=== PATIENT | male | born 1975 | race African-American/Black ===

== ENCOUNTER 2017-12-18 10:25 | Inpatient (IN) | payer OTHER ==
[2017-12-18 10:50] VITALS: BMI 24.7
--- NOTE | 2017-12-18 13:39 | HP ---
CIWA Score - CIWA Score Nausea/Vomitin-Cont. Nausea/Vomiting Muscle Tremors: 3 Anxiety: 3 Agitation: 3 Paroxysmal Sweats: 3 Orientation: 0-Oriented Tacttile Disturbances: 1-Very Mild Itch/Numbness Auditory Disturbances: 0-None Visual Disturbances: 0-None Headache: 0-None Present CIWA-Ar Total Score: 20 Admission ROS BHS - HPI Chief Complaint: "I want to stop drinking for my daughters" Allergies/Adverse Reactions: Allergies Allergy/AdvReac Type Severity Reaction Status Date / Time doxycycline Allergy Verified 12/18/17 11:33 Penicillins Allergy Verified 12/18/17 11:33 History of Present Illness: 42 y/o male who states he has been drinking since age 8 presents requesting alcohol detox. Pt states he has never had detox, this is his first visit here. Denies any remarkable sober period. Has a hx of asthma. Pt admits to a previous suicide attempt about 6 yrs ago by swallowing a bunch of seroquel. Denies current SI/HI Exam Limitations: No Limitations - Ebola screening Have you traveled outside of the country in the last 21 days: No (N) Have you had contact with anyone from an Ebola affected area: No Have you been sick,other than usual withdrawal symptoms: No Do you have a fever: No - Review of Systems Constitutional: Loss of Appetite, Night Sweats, Changes in sleep, Unintentional Wgt. Loss EENT: reports: No Symptoms Reported Respiratory: reports: Shortness of Breath (sometimes) Cardiac: reports: No Symptoms Reported GI: reports: Diarrhea, Poor Appetite, Vomiting : reports: No Symptoms Reported Musculoskeletal: reports: Back Pain Integumentary: reports: No Symptoms Reported Neuro: reports: No Symptoms reported Endocrine: reports: Intolerance to Heat Hematology: reports: No Symptoms Reported Psychiatric: reports: No Sypmtoms Reported, Orientated x3 Patient History - Patient Medical History Hx Anemia: No Hx Asthma: Yes (On Albueterol and QVAR) Hx Chronic Obstructive Pulmonary Disease (COPD): No Hx Cancer: No Hx Cardiac Disorders: No Hx Congestive Heart Failure: No Hx Hypertension: No Hx Hypercholesterolemia: No Hx Pacemaker: No HX Cerebrovascular Accident: No Hx Seizures: No Hx Diabetes: No Hx Gastrointestinal Disorders: No Hx Liver Disease: No Hx Genitourinary Disorders: No Hx Sexually Transmitted Disorders: Yes Hx Renal Disease (ESRD): No Hx Thyroid Disease: No Hx Human Immunodeficiency Virus (HIV): No (Last tested last year.) Hx Hepatitis C: No Hx Depression: Yes Hx Suicide Attempt: No (Denies current SI) Hx Bipolar Disorder: No Hx Schizophrenia: No - Patient Surgical History Past Surgical History: Yes Hx Neurologic Surgery: No Hx Cataract Extraction: No Hx Cardiac Surgery: No Hx Lung Surgery: No Hx Breast Surgery: No Hx Breast Biopsy: No Hx Abdominal Surgery: No Hx Appendectomy: No Hx Cholecystectomy: No Hx Genitourinary Surgery: No Hx Section: No Hx Orthopedic Surgery: Yes (right ankle surgery 2016) Other Surgical History: right groin hernia sx 2002 Anesthesia Reaction: No - PPD History Previous Implant?: No Documented Results: Negative w/o proof Implanted On Prior R Admission?: No PPD to be Administered?: Yes - Reproductive History Patient is a Female of Child Bearing Age (11 -55 yrs old): No - Smoking Cessation Smoking history: Current every day smoker Have you smoked in the past 12 months: Yes Aproximately how many cigarettes per day: 15 Hx Chewing Tobacco Use: No Initiated information on smoking cessation: Yes 'Breaking Loose' booklet given: 12/18/17 - Substance & Tx. History Hx Alcohol Use: Yes Hx Substance Use: Yes Substance Use Type: Cocaine Hx Substance Use Treatment: No - Substances Abused Alcohol Route: Oral Frequency: Daily Amount used: 20 (20 ounces) of beer Age of first use: 8 Date of Last Use: 12/18/17 Family Disease History - Family Disease History Family Disease History: Other: Father (Alcoholic), Mother (Asthma, thyroid , HTN ), Daughter (Asthma) Admission Physical Exam S - Vital Signs Vital Signs: Vital Signs - 24 hr 12/18/17 10:41 Temperature 98.5 F Pulse Rate 106 H Respiratory 20 Rate Blood Pressure 128/73 - Physical General Appearance: Yes: Mild Distress HEENTM: Yes: Within Normal Limits Respiratory: Yes: Normal Breath Sounds, No Respiratory Distress Neck: Yes: No masses,lesions,Nodules, Trachea in good position Breast: Yes: Breast Exam Deferred Cardiology: Yes: Tachycardia (No chest pain, no SOB) Abdominal: Yes: Tenderness (to RUQ) Genitourinary: Yes: Within Normal Limits Back: Yes: Normal Inspection Musculoskeletal: Yes: full range of Motion, Gait Steady Extremities: Yes: Normal Capillary Refill Neurological: Yes: Fully Oriented, Alert, Motor Strength 5/5 Integumentary: Yes: Within Normal Limits Lymphatic: Yes: Within Normal Limits - Diagnostic (1) Alcohol dependence with uncomplicated intoxication Current Visit: Yes Status: Acute (2) Nicotine dependence Current Visit: Yes Status: Acute (3) Asthma Current Visit: Yes Status: Acute Cleared for Admission [facility] - Detox or Rehab [facility] Level of Care: Medically Managed Detox Regimen/Protocol: Librium S Breath Alcohol Content Breath Alcohol Content: 0.273 Urine Drug Screen - Results Drug Screen Negative: Yes
[2017-12-18] MEDS ORDERED: chlordiazePOXIDE HCL 25 MG CAPSULE PO PRN (14:19)
[2017-12-18] MEDS ORDERED: MAG HYDROX/AL HYDROX/SIMETH 30 ML UNIT-DOSE CUP PO PRN (14:19)
[2017-12-18] MEDS ORDERED: MAGNESIUM HYDROX 2400MG/30ML ORAL SUSPENSION 30 ML CUP PO PRN (14:19)
[2017-12-18] MEDS ORDERED: P-EPHED 60MG/TRIPROLIDI 2.5MG TABLET PO PRN (14:19)
[2017-12-18] MEDS ORDERED: MENTHOL/PHENOL 1 EACH UD MM PRN (14:19)
[2017-12-18] MEDS ORDERED: guaiFENesin/D-METHORPHAN HB 10 ML UNIT-DOSE CUPS PO PRN (14:19)
[2017-12-18] MEDS ORDERED: NICOTINE POLACRILEX 2 MG GUM BUC PRN (14:19)
[2017-12-18] MEDS ORDERED: IBUPROFEN 400 MG TABLET (FP) PO PRN (14:19)
[2017-12-18] MEDS ORDERED: LOPERAMIDE HCL 2 MG CAPSULE PO PRN (14:19)
[2017-12-18] MEDS ORDERED: hydrOXYzine PAMOATE 50 MG CAPSULE (FP) PO PRN (14:19)
[2017-12-18] MEDS ORDERED: ACETAMINOPHEN 325 MG TABLET (FP) PO PRN (14:19)
[2017-12-18] MEDS ORDERED: MAGNESIUM CITRATE 300 ML BOTTLE PO PRN (14:19)
[2017-12-18] MEDS ORDERED: ALBUTEROL SO4 8 GM HFA INHALER IH PRN (14:22)
[2017-12-18] MEDS: NICOTINE 21 MG/24 HOURS TOPICAL PATCH TD SCH (15:23)
[2017-12-18] MEDS: chlordiazePOXIDE HCL 25 MG CAPSULE PO SCH ×2 (17:56→22:13)
[2017-12-18 21:28] LABS: URINE APPEARANCE CLEAR; URINE BILIRUBIN NEGATIVE (<2.0 mg/dL); URINE COLOR LTYELLOW; URINE GLUCOSE (UA) NEGATIVE (NEGATIVE); URINE KETONE NEGATIVE (NEGATIVE); URINE LEUK ESTERASE NEGATIVE (NEGATIVE); URINE NITRITE NEGATIVE (NEGATIVE); URINE PROTEIN 1+ (NEGATIVE); URINE UROBILINOGEN NEGATIVE mg/dL (0.2-1.0)
[2017-12-18 21:30] LABS: EPI CELLS RARE /HPF (FEW); URINE MUCUS RARE
[2017-12-18] MEDS ORDERED: MELATONIN 5 MG TABLETS PO PRN (22:00)
[2017-12-18] MEDS: THIAMINE HCL 100 MG TABLET (FP) PO SCH (22:13)
[2017-12-19] MEDS: chlordiazePOXIDE HCL 25 MG CAPSULE PO SCH ×4 (05:33→22:09)
[2017-12-19] MEDS ORDERED: ONDANSETRON *ODT* 4 MG TABLET SL PRN (05:37)
[2017-12-19] MEDS ORDERED: PRENATAL VITAMINS W/ FOLIC ACID TABLET (FP) PO SCH (10:00)
[2017-12-19 10:14] LABS: HEMATOCRIT 40.4 % (35.4-49); MCH 29.6 pg (25.7-33.7); MCHC 32.3 g/dl (32.0-35.9); MEAN CELL VOLUME 91.7 fl (80-96); MEAN PLT VOLUME 8.7 fl (7.5-11.1); PLATELET COUNT 131 K/MM3 (134-434); WHITE BLOOD COUNT 4.2 K/mm3 (4.0-10.0)
[2017-12-19] MEDS: NICOTINE 21 MG/24 HOURS TOPICAL PATCH TD SCH (10:20)
--- NOTE | 2017-12-19 11:02 | PN ---
S CIWA - CIWA Score Nausea/Vomitin-No Nausea/No Vomiting Muscle Tremors: 4-Moderate,w/Arms Extend Anxiety: 4-Mod. Anxious/Guarded Agitation: 4-Moderately Restless Paroxysmal Sweats: 1-Minimal Palms Moist Orientation: 0-Oriented Tacttile Disturbances: 0-None Auditory Disturbances: 0-None Visual Disturbances: 0-None Headache: 0-None Present CIWA-Ar Total Score: 13 BHS Progress Note (SOAP) Subjective: ANXIETY, SWEATS,BADY ACHES, NAUSEA, INTERMITTENT SLEEP. Objective: 12/19/17 11:02 Vital Signs 12/19/17 12/19/17 12/19/17 03:30 04:00 04:30 Temperature Pulse Rate 72 72 72 Respiratory 18 18 18 Rate Blood Pressure 12/19/17 12/19/17 12/19/17 05:00 05:30 05:57 Temperature 98.5 F Pulse Rate 74 77 75 Respiratory 18 18 18 Rate Blood Pressure 107/67 12/19/17 12/19/17 12/19/17 06:00 06:30 07:00 Temperature Pulse Rate 75 77 73 Respiratory 18 18 18 Rate Blood Pressure 12/19/17 12/19/17 12/19/17 07:30 08:00 08:30 Temperature Pulse Rate 68 72 70 Respiratory 18 18 17 Rate Blood Pressure 12/19/17 12/19/17 12/19/17 09:00 09:12 09:30 Temperature 98.8 F Pulse Rate 60 60 60 Respiratory 18 16 18 Rate Blood Pressure 111/69 12/19/17 12/19/17 10:00 10:30 Temperature Pulse Rate 62 64 Respiratory 18 18 Rate Blood Pressure Laboratory Tests 12/18/17 12/19/17 15:41 07:00 WBC 4.2 RBC 4.40 Hgb 13.0 Hct 40.4 MCV 91.7 MCH 29.6 MCHC 32.3 RDW 15.0 Plt Count 131 L MPV 8.7 Urine Color Ltyellow Urine Appearance Clear Urine pH 5.0 Ur Specific [place] 1.006 Urine Protein 1+ H Urine Glucose (UA) Negative Urine Ketones Negative Urine Blood 1+ H Urine Nitrite Negative Urine Bilirubin Negative Urine Urobilinogen Negative Ur Leukocyte Esterase Negative Urine WBC (Auto) 3 Urine RBC (Auto) 3 Ur Epithelial Cells Rare Urine Mucus Rare Assessment: 12/19/17 11:02 WITHDRAWAL SX Plan: CONTINUE DETOX [facility] PRN MOTRIN DIRECTED.
[2017-12-19 11:06] LABS: ALBUMIN 3.7 g/dl (3.4-5.0); ANION GAP 10 MMOL/L (8-16); BLOOD UREA NITROGEN 8 mg/dL (7-18); CALCIUM 8.7 mg/dL (8.5-10.1); CHLORIDE 98 mmol/L (98-107); CO2 31 mmol/L (21-32); GLUCOSE,RANDOM 94 mg/dL (74-106); POTASSIUM 3.8 mmol/L (3.5-5.1); SODIUM 139 mmol/L (136-145)
[2017-12-19 11:10] LABS: ALK PHOS 112 U/L (45-117); BILIRUBIN,TOTAL 0.8 mg/dL (0.2-1.0); CREATININE 0.7 mg/dL (0.7-1.3); SGOT/AST 379 U/L (15-37); SGPT/ALT 186 U/L (12-78); TOT PROT 7.1 g/dl (6.4-8.2)
--- NOTE | 2017-12-19 16:33 | EKG ---
Test Reason : Blood Pressure : / mmHG Vent. Rate : 097 BPM Atrial Rate : 097 BPM P-R Int : 122 ms QRS Dur : 108 ms QT Int : 362 ms P-R-T Axes : 076 044 053 degrees QTc Int : 459 ms NORMAL SINUS RHYTHM INCOMPLETE RIGHT BUNDLE BRANCH BLOCK BORDERLINE ECG NO PREVIOUS ECGS AVAILABLE Confirmed by Josue Loya ([id number]) on 12/19/2017 4:32:47 PM Referred By: Confirmed By:Josue Loya
--- NOTE | 2017-12-19 18:09 | CONSULT ---
[facility] Psychiatric Consult - Data Date of interview: 12/19/17 Admission source: [facility] Identifying data: First admission to [facility] for this 42 y/o AA male self- referred for detoxification treatment (alcohol dependence). Substance Abuse History: Discussed wityh the patient.Mr Leary admits to a long standing history of alcohol dependence and occasional use of cocaine.See [facility] report for details : Smoking history: Current every day smoker. Have you smoked in the past 12 months: Yes. Aproximately how many cigarettes per day: 15. Hx Chewing Tobacco Use: No. Initiated information on smoking cessation: Yes. 'Breaking Loose' booklet given: 12/18/17. - Substance & Tx. History. Hx Alcohol Use: Yes. Hx Substance Use: Yes. Substance Use Type: Cocaine. Hx Substance Use Treatment: No. - Substances Abused. Alcohol. Route: Oral. Frequency: Daily. Amount used: 20 (20 ounces) of beer. Age of first use: 8. Date of Last Use: 12/18/17 Medical History: Patient endorses good general health.Noted history of orthosurgery (fracture of right ankle) and right inguinal herniorraphy. Psychiatric History: Patient denies history of psychiatric hospitalizations.He indicates that he used to see a psychiatrist years ago.Reasons not disclosed.Not on psychotropic medications.Mr Leary admits to one suicide attempt , years ago, via deliberate overdose with quetiapine. Physical/Sexual Abuse/Trauma History: No reported history of abuse. Additional Comment: Drug Screen is negative. Mental Status Exam - Mental Status Exam Alert and Oriented to: Time, Place, Person Cognitive Function: Good Patient Appearance: Well Groomed Mood: Withdrawn, Hopeful Affect: Appropriate, Normal Range Patient Behavior: Fatigued, Appropriate, Cooperative Speech Pattern: Clear, Appropriate Voice Loudness: Normal Thought Process: Intact, Goal Oriented Thought Disorder: Not Present Hallucinations: Denies Suicidal Ideation: Denies Homicidal Ideation: Denies Insight/Judgement: Poor Sleep: Fair Appetite: Good Muscle strength/Tone: Normal Gait/Station: Normal Psychiatric Findings - Problem List ([place] 1, 2,3) (1) Alcohol dependence with uncomplicated intoxication Current Visit: Yes Status: Acute (2) Nicotine dependence Current Visit: Yes Status: Acute Qualifiers: Nicotine product type: cigarettes Substance use status: in withdrawal Qualified Code(s): F17.213 - Nicotine dependence, cigarettes, with withdrawal - Initial Treatment Plan Initial Treatment Plan: Psychoeducation.Slep hygiene.Detoxification in progress.Observation.
[2017-12-19] MEDS: THIAMINE HCL 100 MG TABLET (FP) PO SCH (22:09)
[2017-12-20] MEDS: chlordiazePOXIDE HCL 25 MG CAPSULE PO SCH (05:31)
[2017-12-20 09:10] VITALS: BP 126/83; PULSE 85; TEMP 97.2
--- NOTE | 2017-12-20 14:08 | DS ---
[facility] Detox Discharge Summary Admission Date: 12/18/17 Discharge Date: 12/20/17 - History Present History: Alcohol Dependence Additional Comments: PT DECLINED TO CONTINUE WITH DETOX STATING "I HAVE FAMILY AND WORK TO GO BACK TO. I HAVE TO GO". Pertinent Past History: PLEASE SEE DX BELOW - Physical Exam Results Vital Signs: Vital Signs Temperature 97.2 F L 12/20/17 09:09 Pulse Rate 85 12/20/17 09:09 Respiratory Rate 20 12/20/17 09:09 Blood Pressure 126/83 12/20/17 09:09 O2 Sat by Pulse Oximetry (%) Pertinent Admission Physical Exam Findings: WITHDRAWAL SX Laboratory Tests 12/18/17 12/19/17 12/19/17 15:41 07:00 07:00 WBC 4.2 RBC 4.40 Hgb 13.0 Hct 40.4 MCV 91.7 MCH 29.6 MCHC 32.3 RDW 15.0 Plt Count 131 L MPV 8.7 Sodium Potassium Chloride Carbon Dioxide Anion Gap BUN Creatinine Creat Clearance w eGFR Random Glucose Calcium Total Bilirubin AST ALT Alkaline Phosphatase Total Protein Albumin Urine Color Ltyellow Urine Appearance Clear Urine pH 5.0 Ur Specific [place] 1.006 Urine Protein 1+ H Urine Glucose (UA) Negative Urine Ketones Negative Urine Blood 1+ H Urine Nitrite Negative Urine Bilirubin Negative Urine Urobilinogen Negative Ur Leukocyte Esterase Negative Urine WBC (Auto) 3 Urine RBC (Auto) 3 Ur Epithelial Cells Rare Urine Mucus Rare RPR Titer HIV 1&2 Antibody Screen Negative HIV P24 Antigen Negative 12/19/17 12/19/17 07:00 07:00 WBC RBC Hgb Hct MCV MCH MCHC RDW Plt Count MPV Sodium 139 Potassium 3.8 Chloride 98 Carbon Dioxide 31 Anion Gap 10 BUN 8 Creatinine 0.7 Creat Clearance w eGFR > 60 Random Glucose 94 Calcium 8.7 Total Bilirubin 0.8 AST 379 H ALT 186 H Alkaline Phosphatase 112 Total Protein 7.1 Albumin 3.7 Urine Color Urine Appearance Urine pH Ur Specific [place] Urine Protein Urine Glucose (UA) Urine Ketones Urine Blood Urine Nitrite Urine Bilirubin Urine Urobilinogen Ur Leukocyte Esterase Urine WBC (Auto) Urine RBC (Auto) Ur Epithelial Cells Urine Mucus RPR Titer Nonreactive HIV 1&2 Antibody Screen HIV P24 Antigen - Treatment Hospital Course: Discharged Condition Good - Medication Discharge Medications: Ambulatory Orders Albuterol Sulfate Inhaler - [Ventolin Hfa Inhaler -] 1 - 2 inh PO Q4H 12/18/17 - Diagnosis (1) Alcohol dependence with uncomplicated intoxication Status: Acute (2) Asthma Status: Chronic Qualifiers: Asthma severity: unspecified severity Asthma persistence: unspecified Asthma complication type: unspecified Qualified Code(s): J45.909 - Unspecified asthma, uncomplicated (3) Nicotine dependence Status: Acute Qualifiers: Nicotine product type: cigarettes Substance use status: in withdrawal Qualified Code(s): F17.213 - Nicotine dependence, cigarettes, with withdrawal - AMA Did Patient Leave Against Medical Advice: Yes (AMA)
[2017-12-20] MEDS ORDERED: chlordiazePOXIDE 5 MG CAPSULE PO SCH (17:00)
[2017-12-21] MEDS ORDERED: chlordiazePOXIDE HCL 10 MG CAPSULE PO SCH (17:00)
== END 2017-12-20 08:50 | disposition left against medical advice (07) | DRG 770 ==
LOC: YASAS 10:25 → Y3N 14:16
PROC: HZ2ZZZZ Detoxification Services for Substance Abuse Treatment (ICD-10-PCS; principal; 2017-12-18)
DX: F10.230 Alcohol dependence with withdrawal, uncomplicated (principal); F17.213 Nicotine dependence, cigarettes, with withdrawal; J45.909 Unspecified asthma, uncomplicated; Z88.0 Allergy status to penicillin; Z88.1 Allergy status to other antibiotic agents; Z91.5 Personal history of self-harm; Z59.0 Homelessness; Z87.81 Personal history of (healed) traumatic fracture
CPT/HCPCS: 36415; 80053; 81003; 81015; 85027; 86593; 87389; 93005; 93010; Q0162

== ENCOUNTER 2018-03-28 14:55 | Inpatient (IN) | payer OTHER ==
[2018-03-28 15:24] VITALS: BMI 24.5
--- NOTE | 2018-03-28 16:23 | HP ---
CIWA Score Nausea/Vomitin Muscle Tremors: None Anxiety: 3 Agitation: 3 Paroxysmal Sweats: 2 Orientation: 0-Oriented Tacttile Disturbances: 0-None Auditory Disturbances: 2-Mild Harshness/Frighten Visual Disturbances: 0-None Headache: 2-Mild CIWA-Ar Total Score: 15 - Admission Criteria [facility] Guidelines: Admission for Medically Managed Detox: Requires at least one of the followin. CIWA greater than 12 2. Seizures within the past 24 hours 3. Delirium tremens within the past 24 hours 4. Hallucinations within the past 24 hours 5. Acute intervention needed for co occurring medical disorder 6. Acute intervention needed for co occurring psychiatric disorder 7. Severe withdrawal that cannot be handled at a lower level of care (continued vomiting, continued diarrhea, abnormal vital signs) requiring intravenous medication and/or fluids 8. Admission ROS [facility] Chief Complaint: PATIENT PRESENTS WITH ETOH WITHDRAWAL SX AND COCAINE DEPENDENCE. Allergies/Adverse Reactions: Allergies Allergy/AdvReac Type Severity Reaction Status Date / Time doxycycline Allergy Verified 12/18/17 11:33 Penicillins Allergy Verified 12/18/17 11:33 History of Present Illness: PATIENT BEGAN DRINKING ETOH AT AGE 16. DRINKS 250 OUNCES OF BEER DAILY. LAST DRINK THIS MORNING. PATIENT ALSO SMOKES CRACK/COCAINE 3 TIMES A MONTH, UP 200 DOLLARS WHEN HE DOES SMOKE. LAST TIME HE USED WAS YESTERDAY. PATIENT DENIES H/O SEIZURES. +BLACKOUTS AND FALLS. PATIENT HAS HAD MULTIPLE ATTEMPTS AT DETOX THIS YEAR. LAST ADMISSION HERE AT [facility] IN 12/2017. PATIENT DRINKS FIRST THING IN THE MORNING. PATIENT PMH INCLUDES DEPRESSION, ASTHMA. DENIES SI/HI. + SUICIDE ATTEMPT LAST MONTH AND PT. ADMITTED TO [facility] .PATIENT CURRENTLY ON PROZAC 30MG DAILY AND TRAZODONE 150MG HS, PRESCRIPTION VERIFIED WITH [facility]. PATIENT REPORTS TAKING MEDICATION DAILY AND LAST DOSE THIS MORNING. Exam Limitations: No Limitations - Ebola screening Have you traveled outside of the country in the last 21 days: No Have you had contact with anyone from an Ebola affected area: No Have you been sick,other than usual withdrawal symptoms: No Do you have a fever: No - Review of Systems Constitutional: Chills, Night Sweats, Changes in sleep EENT: reports: No Symptoms Reported Respiratory: reports: No Symptoms reported Cardiac: reports: No Symptoms Reported GI: reports: Diarrhea, Nausea, Poor Fluid Intake, Abdominal cramping : reports: No Symptoms Reported Musculoskeletal: reports: No Symptoms Reported Integumentary: reports: Flushing, Sweating Neuro: reports: Headache, Numbness, Tremors Endocrine: reports: No Symptoms Reported Hematology: reports: No Symptoms Reported Psychiatric: reports: Orientated x3, Anxious, Depressed Patient History - Patient Medical History Hx Anemia: No Hx Asthma: Yes (On Albueterol and QVAR) Hx Chronic Obstructive Pulmonary Disease (COPD): No Hx Cancer: No Hx Cardiac Disorders: No Hx Congestive Heart Failure: No Hx Hypertension: No Hx Hypercholesterolemia: No Hx Pacemaker: No HX Cerebrovascular Accident: No Hx Seizures: No Hx Diabetes: No Hx Gastrointestinal Disorders: No Hx Liver Disease: No Hx Genitourinary Disorders: No Hx Sexually Transmitted Disorders: Yes Hx Renal Disease (ESRD): No Hx Thyroid Disease: No Hx Human Immunodeficiency Virus (HIV): No (Last tested last year.) Hx Hepatitis C: No Hx Depression: Yes Hx Suicide Attempt: Yes (LAST ATTEMPT, 01/2018, JUMPING IN FRONT OF TRAIN) Hx Bipolar Disorder: No Hx Schizophrenia: No - Patient Surgical History Past Surgical History: Yes Hx Neurologic Surgery: No Hx Cataract Extraction: No Hx Cardiac Surgery: No Hx Lung Surgery: No Hx Breast Surgery: No Hx Breast Biopsy: No Hx Abdominal Surgery: No Hx Appendectomy: No Hx Cholecystectomy: No Hx Genitourinary Surgery: No Hx Orthopedic Surgery: Yes (right ankle surgery 2016) Other Surgical History: right groin hernia sx 2002 Anesthesia Reaction: No - PPD History Previous Implant?: Yes Documented Results: Negative w/proof Date: 12/20/17 PPD to be Administered?: No - Smoking Cessation Smoking history: Current every day smoker Have you smoked in the past 12 months: Yes Aproximately how many cigarettes per day: 15 Hx Chewing Tobacco Use: No Initiated information on smoking cessation: Yes 'Breaking Loose' booklet given: 03/28/18 - Substance & Tx. History Hx Alcohol Use: Yes Hx Substance Use: Yes Substance Use Type: Alcohol, Cocaine - Substances Abused Alcohol Route: Oral Frequency: Daily Amount used: 250 OUNCES BEER Age of first use: 16 Date of Last Use: 03/28/18 Cocaine Route: Inhalation Frequency: 1-3 times last 30 days Amount used: 200 Age of first use: 38 Date of Last Use: 03/28/18 Family Disease History - Family Disease History Family Disease History: Other: Father (Alcoholic), Mother (Asthma, thyroid , HTN ), Daughter (Asthma) Admission Physical Exam [facility] - Vital Signs Vital Signs: Vital Signs - 24 hr 03/28/18 15:16 Temperature 98.9 F Pulse Rate 104 H Respiratory 20 Rate Blood Pressure 110/59 L - Physical General Appearance: Yes: Appropriately Dressed, Disheveled, Alcohol on Breath, Tremorous HEENTM: Yes: EOMI, Hearing grossly Normal, Normal ENT Inspection, Normocephalic , Normal Voice, NASIMA, Pharynx Normal Respiratory: Yes: Chest Non-Tender, Lungs Clear, Normal Breath Sounds, No Respiratory Distress, No Accessory Muscle Use Neck: Yes: No masses,lesions,Nodules, Supple, Trachea in good position Breast: Yes: Breast Exam Deferred Cardiology: Yes: Regular Rhythm, Regular Rate, S1, S2 Abdominal: Yes: Normal Bowel Sounds, Non Tender, Soft Genitourinary: Yes: Frequency Back: Yes: Within Normal Limits Musculoskeletal: Yes: full range of Motion, Gait Steady Extremities: Yes: Normal Inspection, Normal Range of Motion, Non-Tender Neurological: Yes: tower watchman II-XII NML intact, Fully Oriented, Alert, Motor Strength 5/5, Normal Response, Depressed Affect Integumentary: Yes: Normal Color, Warm, Moist Lymphatic: Yes: Within Normal Limits - Diagnostic (1) Depression Current Visit: Yes Status: Chronic Qualifiers: Depression Type: unspecified Qualified Code(s): F32.9 - Major depressive disorder, single episode, unspecified (2) Alcohol dependence with uncomplicated intoxication Current Visit: Yes Status: Acute (3) Nicotine dependence Current Visit: Yes Status: Chronic Qualifiers: Nicotine product type: cigarettes Substance use status: in withdrawal Qualified Code(s): F17.213 - Nicotine dependence, cigarettes, with withdrawal (4) Asthma Current Visit: Yes Status: Chronic Qualifiers: Asthma severity: unspecified severity Asthma persistence: unspecified Asthma complication type: unspecified Qualified Code(s): J45.909 - Unspecified asthma, uncomplicated Cleared for Admission S - Detox or Rehab [facility] Level of Care: Medically Managed Detox Regimen/Protocol: Librium S Breath Alcohol Content Breath Alcohol Content: 0 Urine Drug Screen - Results Drug Screen Negative: No Urine Drug Screen Results: TOÑO-Cocaine
[2018-03-28] MEDS ORDERED: guaiFENesin/D-METHORPHAN HB 10 ML UNIT-DOSE CUPS PO PRN (16:33)
[2018-03-28] MEDS ORDERED: NICOTINE POLACRILEX 2 MG GUM BC PRN (16:33)
[2018-03-28] MEDS ORDERED: MAGNESIUM HYDROX 2400MG/30ML ORAL SUSPENSION 30 ML CUP PO PRN (16:33)
[2018-03-28] MEDS ORDERED: MAG HYDROX/AL HYDROX/SIMETH 30 ML UNIT-DOSE CUP PO PRN (16:33)
[2018-03-28] MEDS ORDERED: hydrOXYzine PAMOATE 50 MG CAPSULE (FP) PO PRN (16:33)
[2018-03-28] MEDS ORDERED: IBUPROFEN 400 MG TABLET (FP) PO PRN (16:33)
[2018-03-28] MEDS ORDERED: P-EPHED 60MG/TRIPROLIDI 2.5MG TABLET PO PRN (16:33)
[2018-03-28] MEDS ORDERED: MENTHOL/PHENOL 1 EACH UD MM PRN (16:33)
[2018-03-28] MEDS ORDERED: LOPERAMIDE HCL 2 MG CAPSULE PO PRN (16:33)
[2018-03-28] MEDS ORDERED: ACETAMINOPHEN 325 MG TABLET (FP) PO PRN (16:33)
[2018-03-28] MEDS ORDERED: MAGNESIUM CITRATE 300 ML BOTTLE PO PRN (16:33)
[2018-03-28] MEDS ORDERED: chlordiazePOXIDE HCL 25 MG CAPSULE PO PRN (16:36)
[2018-03-28] MEDS: ALBUTEROL SO4 8 GM HFA INHALER IH SCH ×2 (19:16→22:19)
[2018-03-28] MEDS ORDERED: MELATONIN 5 MG TABLETS PO PRN (22:00)
[2018-03-28] MEDS ORDERED: traZODone HCL 50 MG TABLET (FP) PO SCH (22:00)
[2018-03-28] MEDS: THIAMINE HCL 100 MG TABLET (FP) PO SCH (22:19)
[2018-03-28] MEDS: chlordiazePOXIDE HCL 25 MG CAPSULE PO SCH (22:20)
[2018-03-29] MEDS: ALBUTEROL SO4 8 GM HFA INHALER IH SCH ×3 (00:20→08:54)
[2018-03-29] MEDS: chlordiazePOXIDE HCL 25 MG CAPSULE PO SCH ×4 (05:48→22:20)
[2018-03-29] MEDS ORDERED: ALBUTEROL SO4 8 GM HFA INHALER IH PRN (09:25)
[2018-03-29] MEDS ORDERED: FLUoxetine HCL 10 MG CAPSULE (FP) PO SCH (10:00)
--- NOTE | 2018-03-29 10:02 | PN ---
S CIWA - CIWA Score Nausea/Vomitin-Mild Nausea/No Vomiting Muscle Tremors: 3 Anxiety: 3 Agitation: 3 Paroxysmal Sweats: 1-Minimal Palms Moist Orientation: 0-Oriented Tacttile Disturbances: 0-None Auditory Disturbances: 0-None Visual Disturbances: 0-None Headache: 2-Mild CIWA-Ar Total Score: 13 BHS Progress Note (SOAP) Subjective: tremor sweat trouble sleep at night low energy Objective: 03/29/18 10:01 Vital Signs Temperature 97.5 F L 03/29/18 09:53 Pulse Rate 74 03/29/18 09:53 Respiratory Rate 19 03/29/18 09:53 Blood Pressure 86/51 L 03/29/18 09:53 O2 Sat by Pulse Oximetry (%) lab pending Assessment: 03/29/18 10:02 withdrawal sx history of AMA Plan: continue detox discuss sobriety goal and negative consequences of alcohol misuse
--- NOTE | 2018-03-29 10:09 | CONSULT ---
[facility] Psychiatric Consult - Data Date of interview: 03/29/18 Admission source: [facility] Identifying data: This is 42 years old male, single father of three, domiciled, on PA support, with psychiatric hospitalization history, with history of Alcohol , Cocaine and Nicotine dependence, is here presenting withdrawal symptoms and seeking for detox. Substance Abuse History: Smoking history: Current every day smoker. Have you smoked in the past 12 months: Yes. Aproximately how many cigarettes per day: 15. Hx Chewing Tobacco Use: No. Initiated information on smoking cessation: Yes. 'Breaking Loose' booklet given: 03/28/18. - Substance & Tx. History. Hx Alcohol Use: Yes. Hx Substance Use: Yes. Substance Use Type: Alcohol, Cocaine. - Substances Abused. Alcohol. Route: Oral. Frequency: Daily. Amount used: 250 OUNCES BEER. Age of first use: 16. Date of Last Use: . Cocaine. Route: Inhalation. Frequency: 1-3 times last 30 days. Amount used: 200. Age of first use: 38. Date of Last Use: 03/28/18 Medical History: Asthma Psychiatric History: Patient reports history of depression and anxiety, reports suicidal attempt on 01/2018 jumping in front of train,reports being under influance of Cocaine anmd Alcohol, reports no suicidal and homicidal history in the past, denies suicidal, homicidal ideationsw at this time,. Patient reports taking prior to admission: Prozac 30mg poqd. Trazodone 150mg po qhs Physical/Sexual Abuse/Trauma History: Denies Additional Comment: Prozac 30mg poqd. Trazodone 150mg po qhs Mental Status Exam - Mental Status Exam Alert and Oriented to: Person Cognitive Function: Fair Patient Appearance: Unkempt Mood: Sad Affect: Flat Patient Behavior: Sedated Speech Pattern: Delayed Voice Loudness: Mildly Soft/Quiet Thought Process: Circumstantial Thought Disorder: Being Controlled Hallucinations: Denies Suicidal Ideation: Denies Homicidal Ideation: Denies Insight/Judgement: Fair Sleep: Difficulty falling asleep Appetite: Fair Muscle strength/Tone: Mild Hypotonicity Gait/Station: Shuffling Additional Comments: Prozac 30mg poqd. Trazodone 150mg po qhs Psychiatric Findings - Problem List ([place] 1, 2,3) (1) MDD (major depressive disorder) Current Visit: Yes Status: Acute (2) Alcohol dependence with uncomplicated intoxication Current Visit: Yes Status: Acute (3) Asthma Current Visit: Yes Status: Chronic Qualifiers: Asthma severity: unspecified severity Asthma persistence: unspecified Asthma complication type: unspecified Qualified Code(s): J45.909 - Unspecified asthma, uncomplicated (4) Nicotine dependence Current Visit: Yes Status: Chronic Qualifiers: Nicotine product type: cigarettes Substance use status: in withdrawal Qualified Code(s): F17.213 - Nicotine dependence, cigarettes, with withdrawal - Initial Treatment Plan Initial Treatment Plan: Prozac 30mg poqd. Trazodone 150mg po qhs
[2018-03-29 10:36] LABS: HEMATOCRIT 42.5 % (35.4-49); HEMOGLOBIN 13.6 GM/dL (11.7-16.9); MCH 29.1 pg (25.7-33.7); MCHC 32.1 g/dl (32.0-35.9); MEAN CELL VOLUME 90.7 fl (80-96); MEAN PLT VOLUME 8.1 fl (7.5-11.1); PLATELET COUNT 212 K/MM3 (134-434); RBC 4.68 M/mm3 (4.00-5.60); WHITE BLOOD COUNT 8.6 K/mm3 (4.0-10.0)
[2018-03-29] MEDS: NICOTINE 21 MG/24 HOURS TOPICAL PATCH TD SCH (10:38)
[2018-03-29] MEDS: PRENATAL VITAMINS W/ FOLIC ACID TABLET (FP) PO SCH (10:54)
[2018-03-29 11:19] LABS: ALBUMIN 3.5 g/dl (3.4-5.0); ALK PHOS 65 U/L (45-117); ANION GAP 9 MMOL/L (8-16); BILIRUBIN,TOTAL 0.6 mg/dL (0.2-1); BLOOD UREA NITROGEN 10 mg/dL (7-18); CALCIUM 8.5 mg/dL (8.5-10.1); CHLORIDE 104 mmol/L (98-107); CO2 27 mmol/L (21-32); CREATININE 0.8 mg/dL (0.55-1.3); GLUCOSE,RANDOM 86 mg/dL (74-106); POTASSIUM 4.1 mmol/L (3.5-5.1); SGOT/AST 37 U/L (15-37); SGPT/ALT 50 U/L (13-61); SODIUM 140 mmol/L (136-145); TOT PROT 6.7 g/dl (6.4-8.2)
[2018-03-29] MEDS: FLUoxetine HCL 10 MG TABLET PO SCH (11:39)
[2018-03-29] MEDS: traZODone HCL 50 MG TABLET (FP) PO SCH (22:19)
[2018-03-29] MEDS: THIAMINE HCL 100 MG TABLET (FP) PO SCH (22:19)
[2018-03-30] MEDS: chlordiazePOXIDE HCL 25 MG CAPSULE PO SCH ×3 (05:49→17:24)
[2018-03-30] MEDS: FLUoxetine HCL 10 MG TABLET PO SCH (10:40)
[2018-03-30] MEDS: NICOTINE 21 MG/24 HOURS TOPICAL PATCH TD SCH (10:40)
[2018-03-30] MEDS: PRENATAL VITAMINS W/ FOLIC ACID TABLET (FP) PO SCH (10:40)
--- NOTE | 2018-03-30 15:34 | PN ---
S CIWA - CIWA Score Nausea/Vomitin-No Nausea/No Vomiting Muscle Tremors: None Anxiety: 4-Mod. Anxious/Guarded Agitation: 3 Paroxysmal Sweats: 1-Minimal Palms Moist Orientation: 0-Oriented Tacttile Disturbances: 0-None Auditory Disturbances: 0-None Visual Disturbances: 0-None Headache: 0-None Present CIWA-Ar Total Score: 8 BHS Progress Note (SOAP) Subjective: PATIENT C/O INTERRUPTED SLEEP AND ANXIETY/RESTLESSNESS. Objective: 03/30/18 15:32 Vital Signs Temperature 97.9 F 03/30/18 13:15 Pulse Rate 92 H 03/30/18 13:15 Respiratory Rate 18 03/30/18 13:15 Blood Pressure 119/78 03/30/18 13:15 O2 Sat by Pulse Oximetry (%) Laboratory Tests 03/29/18 03/29/18 03/29/18 07:00 07:00 07:00 WBC 8.6 RBC 4.68 Hgb 13.6 Hct 42.5 MCV 90.7 MCH 29.1 MCHC 32.1 RDW 14.0 Plt Count 212 D MPV 8.1 Sodium 140 Potassium 4.1 Chloride 104 Carbon Dioxide 27 Anion Gap 9 BUN 10 Creatinine 0.8 Creat Clearance w eGFR > 60 Random Glucose 86 Calcium 8.5 Total Bilirubin 0.6 AST 37 ALT 50 Alkaline Phosphatase 65 Total Protein 6.7 Albumin 3.5 RPR Titer Nonreactive ALERT AND ORIENTED X 3 SKIN WARM, +MILD SWEATING OF PALMS EXT FULL ROM, AMB AD AARON, NO TREMORS ANXIOUS/IRRITABLE Assessment: 03/30/18 15:33 WITHDRAWAL SX Plan: CONTINUE DETOX ENCOURAGE ORAL FLUIDS CONTINUE TO MONITOR CLINICALLY
[2018-03-30] MEDS: THIAMINE HCL 100 MG TABLET (FP) PO SCH (22:56)
[2018-03-30] MEDS: chlordiazePOXIDE 5 MG CAPSULE PO SCH (22:56)
[2018-03-30] MEDS: traZODone HCL 50 MG TABLET (FP) PO SCH (22:57)
[2018-03-31] MEDS: chlordiazePOXIDE 5 MG CAPSULE PO SCH ×3 (05:47→17:24)
[2018-03-31] MEDS: NICOTINE 21 MG/24 HOURS TOPICAL PATCH TD SCH (10:37)
[2018-03-31] MEDS: FLUoxetine HCL 10 MG TABLET PO SCH (10:37)
[2018-03-31] MEDS: PRENATAL VITAMINS W/ FOLIC ACID TABLET (FP) PO SCH (10:37)
--- NOTE | 2018-03-31 14:01 | PN ---
BHS Progress Note (SOAP) Subjective: Interrupted sleep, generalized weakness, muscle aches Objective: 03/31/18 14:00 Vital Signs Temperature 97.7 F 03/31/18 10:52 Pulse Rate 66 03/31/18 10:52 Respiratory Rate 18 03/31/18 10:52 Blood Pressure 109/61 03/31/18 10:52 O2 Sat by Pulse Oximetry (%) Laboratory Last Values WBC 8.6 K/mm3 (4.0-10.0) 03/29/18 07:00 RBC 4.68 M/mm3 (4.00-5.60) 03/29/18 07:00 Hgb 13.6 GM/dL (11.7-16.9) 03/29/18 07:00 Hct 42.5 % (35.4-49) 03/29/18 07:00 MCV 90.7 fl (80-96) 03/29/18 07:00 MCH 29.1 pg (25.7-33.7) 03/29/18 07:00 MCHC 32.1 g/dl (32.0-35.9) 03/29/18 07:00 RDW 14.0 % (11.9-15.9) 03/29/18 07:00 Plt Count 212 K/MM3 (134-434) D 03/29/18 07:00 MPV 8.1 fl (7.5-11.1) 03/29/18 07:00 Sodium 140 mmol/L (136-145) 03/29/18 07:00 Potassium 4.1 mmol/L (3.5-5.1) 03/29/18 07:00 Chloride 104 mmol/L (98-107) 03/29/18 07:00 Carbon Dioxide 27 mmol/L (21-32) 03/29/18 07:00 Anion Gap 9 MMOL/L (8-16) 03/29/18 07:00 BUN 10 mg/dL (7-18) 03/29/18 07:00 Creatinine 0.8 mg/dL (0.55-1.3) 03/29/18 07:00 Creat Clearance w eGFR > 60 (>60) 03/29/18 07:00 Random Glucose 86 mg/dL (74-106) 03/29/18 07:00 Calcium 8.5 mg/dL (8.5-10.1) 03/29/18 07:00 Total Bilirubin 0.6 mg/dL (0.2-1) 03/29/18 07:00 AST 37 U/L (15-37) 03/29/18 07:00 ALT 50 U/L (13-61) 03/29/18 07:00 Alkaline Phosphatase 65 U/L (45-117) 03/29/18 07:00 Total Protein 6.7 g/dl (6.4-8.2) 03/29/18 07:00 Albumin 3.5 g/dl (3.4-5.0) 03/29/18 07:00 RPR Titer Nonreactive (NONREACTIVE) 03/29/18 07:00 Labs noted Assessment: 03/31/18 14:01 Withdrawal sx Plan: Continue detox
[2018-03-31] MEDS: traZODone HCL 50 MG TABLET (FP) PO SCH (22:24)
[2018-03-31] MEDS: THIAMINE HCL 100 MG TABLET (FP) PO SCH (22:24)
[2018-03-31] MEDS: chlordiazePOXIDE HCL 10 MG CAPSULE PO SCH (22:24)
[2018-04-01] MEDS: chlordiazePOXIDE HCL 10 MG CAPSULE PO SCH (05:40)
[2018-04-01 06:44] VITALS: BP 97/56; PULSE 82; TEMP 97.2
--- NOTE | 2018-04-01 12:01 | DS ---
[facility] Detox Discharge Summary Admission Date: 03/28/18 Discharge Date: 04/01/18 - History Present History: Alcohol Dependence Additional Comments: Patient completed detox successfully. Patient to follow up with his PCP within 1 -2 weeks. Pertinent Past History: Depression Alcohol dependence Nicotine dependence Asthma - Physical Exam Results Vital Signs: Vital Signs Temperature 97.2 F L 04/01/18 06:43 Pulse Rate 82 04/01/18 06:43 Respiratory Rate 18 04/01/18 06:43 Blood Pressure 97/56 L 04/01/18 06:43 O2 Sat by Pulse Oximetry (%) Pertinent Admission Physical Exam Findings: Withdrawal symptoms Laboratory Tests 03/29/18 03/29/18 03/29/18 07:00 07:00 07:00 WBC 8.6 RBC 4.68 Hgb 13.6 Hct 42.5 MCV 90.7 MCH 29.1 MCHC 32.1 RDW 14.0 Plt Count 212 D MPV 8.1 Sodium 140 Potassium 4.1 Chloride 104 Carbon Dioxide 27 Anion Gap 9 BUN 10 Creatinine 0.8 Creat Clearance w eGFR > 60 Random Glucose 86 Calcium 8.5 Total Bilirubin 0.6 AST 37 ALT 50 Alkaline Phosphatase 65 Total Protein 6.7 Albumin 3.5 RPR Titer Nonreactive Labs reviewed - Treatment Hospital Course: Detox Protocol Followed, Detoxed Safely, Responded well, Discharged Condition Good - Medication Discharge Medications: Ambulatory Orders Beclomethasone Dipropionate [Qvar] 8.7 gm IH BID 03/28/18 Fluoxetine HCl [Prozac -] 30 mg PO DAILY #30 tablet 03/29/18 Trazodone HCl 150 mg PO HS #30 tablet 03/29/18 - Diagnosis (1) Alcohol dependence with uncomplicated withdrawal Status: Acute (2) MDD (major depressive disorder) Status: Chronic (3) Asthma Status: Chronic Qualifiers: Asthma severity: unspecified severity Asthma persistence: unspecified Asthma complication type: unspecified Qualified Code(s): J45.909 - Unspecified asthma, uncomplicated (4) Nicotine dependence Status: Chronic Qualifiers: Nicotine product type: cigarettes Substance use status: uncomplicated Qualified Code(s): F17.210 - Nicotine dependence, cigarettes, uncomplicated - AMA Did Patient Leave Against Medical Advice: No (F/U with PCP within 1-2 weeks)
== END 2018-04-01 07:10 | disposition home or self-care (01) | DRG 775 ==
LOC: YASAS 14:55 → Y3N 17:52
PROC: HZ2ZZZZ Detoxification Services for Substance Abuse Treatment (ICD-10-PCS; principal; 2018-03-28)
DX: F10.230 Alcohol dependence with withdrawal, uncomplicated (principal); F17.210 Nicotine dependence, cigarettes, uncomplicated; F33.9 Major depressive disorder, recurrent, unspecified; J45.909 Unspecified asthma, uncomplicated; Z87.438 Personal history of other diseases of male genital organs; Z88.0 Allergy status to penicillin; Z88.1 Allergy status to other antibiotic agents; Z91.5 Personal history of self-harm
CPT/HCPCS: 36415; 80053; 85027; 86593

== ENCOUNTER 2018-12-08 13:58 | Emergency (ER) | payer OTHER ==
[2018-12-08 14:20] VITALS: BP 137/72; PULSE 80; TEMP 98; BMI 22.3
--- NOTE | 2018-12-08 17:04 | PDOC ---
History of Present Illness - General Chief Complaint: Alcohol intoxication Stated Complaint: INTOXICATION Time Seen by Provider: 12/08/18 14:26 History Source: Patient, Old Records Exam Limitations: Intoxication - History of Present Illness Initial Comments: HPI: 43 y/o male BIBEMS to [facility] ER around being found on the street with an altered mental status. Arrived in the department and requested help with alcohol detox. Endorses consuming multiple alcoholic beverages both this morning and last night. Denies additional street drugs today but used marijuana last night. Denies trauma. Last Detox at [facility] on 05 November 2018 per [facility] records. Medical Hx: - H/o of EtOH Abuse - H/o of Cocaine Dependence - Depression Review of Systems: In addition to that documented in the HPI above, the additional ROS was obtained : Constitutional: Denies fevers or chills ENMT: Denies sore throat CV: Denies chest pain Resp: Denies SOB GI: Denies vomiting or diarrhea Trauma: Denies falling Physical Examination: Constitutional: Nontoxic adult male in no acute distress or obvious discomfort. Found snoring on hospital hallway bed. Easily arousable to voice. Speech slurred. Malodorous with smell of alcohol about person. Head: Normocephalic. No obvious external signs of trauma. Cardiovascular / Chest: Regular rate and regular rhythm. No murmur, rubs, clicks , or gallops. Peripheral pulses: radial pulses full. Respiratory: Breathing unlabored. Equal chest rise and fall. Clear to auscultation bilaterally. No stridor, no wheezing, no rhonchi. Neuro: Moving all four extremities spontaneously. Skin: Warm, dry, and intact. Psych: Affect: stuporous. Mood: unable to assess. MDM: *Reviewed vital signs, nursing notes, and prior visit documentation (if available). 43 y/o male presenting with likely alcohol intoxication, consistent with history documented in [facility]. Afebrile. Vitals unremarkable for hypotension or tachycardia. BGL within normal limits. Physical exam as described above. Low suspicion for occult trauma. Pt reassessed. Reports he feels better and would like to be sent to [facility] now. Found to ambulate unassisted with a steady gait. More clinically sober. Telephone discussion with member of staff Khanh at [facility]. Accepted pt for evaluation. Pt transferred via director of physical security. Alvarez Richard M.D., PGY2 Emergency Medicine Resident Past History - Past Medical History Allergies/Adverse Reactions: Allergies Allergy/AdvReac Type Severity Reaction Status Date / Time doxycycline Allergy Verified 03/28/18 17:15 Penicillins Allergy Verified 03/28/18 17:15 Home Medications: Ambulatory Orders Beclomethasone Dipropionate [Qvar] 8.7 gm IH BID 03/28/18 Fluoxetine HCl [Prozac -] 30 mg PO DAILY #30 tablet 03/29/18 Trazodone HCl 150 mg PO HS #30 tablet 03/29/18 Anemia: No Asthma: Yes Cancer: No Cardiac Disorders: No CVA: No COPD: No CHF: No Diabetes: No GI Disorders: No Disorders: No HTN: No Hypercholesterolemia: No Kidney Stones: No Liver Disease: No Seizures: No Thyroid Disease: No - Surgical History Abdominal Surgery: No Appendectomy: No Cardiac Surgery: No Cholecystectomy: No Lung Surgery: No Neurologic Surgery: No Orthopedic Surgery: Yes (right ankle surgery 2016) - Reproductive History Testicular Surgery: No - Suicide/Smoking/Psychosocial Hx Smoking History: Unknown if ever smoked Have you smoked in the past 12 months: No Number of Cigarettes Smoked Daily: 15 Information on smoking cessation initiated: No 'Breaking Loose' booklet given: 03/28/18 Hx Alcohol Use: No Drug/Substance Use Hx: No Substance Use Type: Alcohol, Cocaine Hx Substance Use Treatment: Yes *Physical Exam - Vital Signs Last Vital Signs Temp Pulse Resp BP Pulse Ox 98.0 F 80 16 137/72 97 12/08/18 14:10 12/08/18 14:10 12/08/18 14:10 12/08/18 14:10 12/08/18 14:10 ED Treatment Course - ADDITIONAL ORDERS Additional order review: Laboratory Results 12/08/18 16:56 POC Glucometer 94 12/08/18 16:56 POC Glucometer 94 *DC/Admit/Observation/Transfer Diagnosis at time of Disposition: Alcohol dependence with uncomplicated intoxication - Discharge Dispostion Disposition: HOME Condition at time of disposition: Good Decision to Admit order: No - Referrals - Patient Instructions Printed Discharge Instructions: DI for Alcohol Abuse Additional Instructions: You were seen today requesting help with alcohol detox. Your blood sugar was normal today. You are being transferred to [facility] Detox. Best of luck on your recovery! Go to the nearest emergency department if your condition worsens or you feel like you need additional emergency evaluation. Print Language: YI - Post Discharge Activity
--- NOTE | 2018-12-08 18:04 | PDOC ---
Documentation entered by Perico Gonzalez SCRIBE, acting as scribe for Kristal Fatima MD. Kristal Fatima MD: This documentation has been prepared by the kirsten, Perico Gonzalez SCRIBE, under my direction and personally reviewed by me in its entirety. I confirm that the documentation accurately reflects all work, treatment, procedures, and medical decision making performed by me. Attending Attestation - Resident Resident Name: Alvarez Richard - ED Attending Attestation I have performed the following: I have examined & evaluated the patient, The case was reviewed & discussed with the resident, I agree w/resident's findings & plan, Exceptions are as noted - HPI HPI: 12/08/18 17:43 The patient is a 43 year old male with a significant past medical history of daily ETOH use and marijuana use who presents to the emergency department via EMS with alcohol intoxication earlier today. Pt tells me that his last drink was last night. He tells me that he was NOT altered and laying on the street. When he was seen by EMS, he was standing and had a conversation with them. He denies trauma of any kind. The patient endorses smoking marijuana yesterday. He denies any fever, chills, nausea, vomiting, diarrhea, headache, chest pain shortness of breath on exam. He denies muscular pain or traumatic injury of any kind The patient does request detox but has no other complaints. 12/08/18 17:58 - Physicial Exam PE: 12/08/18 18:00 GENERAL: The patient is in no acute distress. ENT: Ears normal, nares patent, oropharynx clear without exudates. Moist mucous membranes. NECK: Normal range of motion, supple, no midline tenderness LUNGS: Breath sounds equal, clear to auscultation bilaterally. No wheezes, and no crackles. HEART:Regular rate and rhythm, normal S1 and S2 without murmur, rub or gallop. ABDOMEN: Soft, nontender, normoactive bowel sounds. EXTREMITIES: Normal range of motion, no edema. NEUROLOGICAL: Cranial nerves II through XII grossly intact. Normal speech. No focal neurological deficits. ambulatory to the bathroom independently SKIN: well healed abrasion overlying the right elbow - Medical Decision Making 12/08/18 18:00 43 yo M presenting to the ER and requesting Detox There is a bed available for him at [facility] Pt is anxious to go there Denies any complaint of headache, or musculoskeletal pain which requires xray or CT Pt is ambulatory in the ER with no difficulty Speech is not slurred Pt demonstrates clinical sobriety Clinical impression: Alcohol abuse, initial presentation
== END 2018-12-08 18:02 | disposition home or self-care (01) ==
LOC: JER 13:58
DX: F10.120 Alcohol abuse with intoxication, uncomplicated (principal); Y90.9 Presence of alcohol in blood, level not specified
CPT/HCPCS: 82962; 99282-25

== ENCOUNTER 2018-12-08 18:33 | Inpatient (IN) | payer OTHER ==
[2018-12-08 19:03] VITALS: BMI 22.4
--- NOTE | 2018-12-08 19:22 | HP ---
CIWA Score Nausea/Vomitin Muscle Tremors: 1-None Visible, but [place] Anxiety: 2 Agitation: 2 Paroxysmal Sweats: 1-Minimal Palms Moist Orientation: 1-Uncertain about Date Tacttile Disturbances: 1-Very Mild Itch/Numbness Auditory Disturbances: 1-Very Mild Visual Disturbances: 1-Very Mild Sensitivity Headache: 2-Mild CIWA-Ar Total Score: 14 - Admission Criteria OASAS Guidelines: Admission for Medically Managed Detox: Requires at least one of the followin. CIWA greater than 12 2. Seizures within the past 24 hours 3. Delirium tremens within the past 24 hours 4. Hallucinations within the past 24 hours 5. Acute intervention needed for co occurring medical disorder 6. Acute intervention needed for co occurring psychiatric disorder 7. Severe withdrawal that cannot be handled at a lower level of care (continued vomiting, continued diarrhea, abnormal vital signs) requiring intravenous medication and/or fluids 8. Patient presents the following: CIWA greater than 12 Admission Criteria Met: Admission criteria met Admission ROS S - [facility] Chief Complaint: I need detox Allergies/Adverse Reactions: Allergies Allergy/AdvReac Type Severity Reaction Status Date / Time doxycycline Allergy Verified 12/08/18 18:57 Fish Containing Products Allergy Verified 12/08/18 18:57 Penicillins Allergy Verified 12/08/18 18:57 History of Present Illness: Patient sent from ED where he was taken by EMS for intoxication. Exam Limitations: No Limitations - Ebola screening Have you traveled outside of the country in the last 21 days: No (N) Have you had contact with anyone from an Ebola affected area: No Have you been sick,other than usual withdrawal symptoms: No Do you have a fever: No - Review of Systems Constitutional: Loss of Appetite, Changes in sleep EENT: reports: No Symptoms Reported Respiratory: reports: No Symptoms reported Cardiac: reports: No Symptoms Reported GI: reports: Poor Fluid Intake, Abdominal cramping : reports: No Symptoms Reported Musculoskeletal: reports: Back Pain, Muscle Pain Integumentary: reports: No Symptoms Reported Neuro: reports: Headache Endocrine: reports: No Symptoms Reported Hematology: reports: No Symptoms Reported Psychiatric: reports: Anxious, Depressed Other Systems: Reviewed and Negative Patient History - Patient Medical History Hx Anemia: No Hx Asthma: Yes Hx Chronic Obstructive Pulmonary Disease (COPD): No Hx Cancer: No Hx Cardiac Disorders: No Hx Congestive Heart Failure: No Hx Hypertension: No Hx Hypercholesterolemia: No Hx Pacemaker: No HX Cerebrovascular Accident: No Hx Seizures: No Hx Diabetes: No Hx Gastrointestinal Disorders: No Hx Liver Disease: No Hx Genitourinary Disorders: No Hx Sexually Transmitted Disorders: No Hx Renal Disease (ESRD): No Hx Thyroid Disease: No Hx Human Immunodeficiency Virus (HIV): No Hx Hepatitis C: No Hx Depression: Yes Hx Suicide Attempt: No Hx Bipolar Disorder: No Hx Schizophrenia: No - Patient Surgical History Past Surgical History: Yes Hx Neurologic Surgery: No Hx Cataract Extraction: No Hx Cardiac Surgery: No Hx Lung Surgery: No Hx Breast Surgery: No Hx Breast Biopsy: No Hx Abdominal Surgery: No Hx Appendectomy: No Hx Cholecystectomy: No Hx Genitourinary Surgery: No Hx Section: No Hx Orthopedic Surgery: Yes (right ankle surgery 2016) Other Surgical History: right groin hernia sx 2002 Anesthesia Reaction: No - PPD History Previous Implant?: Yes Documented Results: Negative w/proof Implanted On Prior [facility] Admission?: Yes Date: 12/20/17 Results: 0 mm PPD to be Administered?: No - Smoking Cessation Smoking history: Current every day smoker Have you smoked in the past 12 months: Yes Aproximately how many cigarettes per day: 15 Hx Chewing Tobacco Use: No Initiated information on smoking cessation: Yes 'Breaking Loose' booklet given: 12/08/18 - Substances abused Alcohol Substance route: Oral Frequency: Daily Amount used: 10 24oz beers Age of first use: 9 Date of last use: 12/08/18 Family Disease History - Family Disease History Family Disease History: Other: Father (Alcoholic), Mother (Asthma, thyroid , HTN ), Daughter (Asthma) Admission Physical Exam S - Vital Signs Vital Signs: Vital Signs - 24 hr 12/08/18 19:00 Temperature 98.9 F Pulse Rate 100 H Respiratory 18 Rate Blood Pressure 161/82 - Physical General Appearance: Yes: Alcohol on Breath HEENTM: Yes: Normocephalic, Normal Voice, NASIMA Respiratory: Yes: Chest Non-Tender, Lungs Clear Neck: Yes: No masses,lesions,Nodules, Supple Breast: Yes: Breast Exam Deferred Cardiology: Yes: Regular Rhythm, Regular Rate, S1, S2 Abdominal: Yes: Normal Bowel Sounds, Non Tender, Soft Genitourinary: Yes: Within Normal Limits Back: Yes: Normal Inspection Musculoskeletal: Yes: Muscle weakness Extremities: Yes: Normal Range of Motion Neurological: Yes: Alert Integumentary: Yes: [place] Lymphatic: Yes: Within Normal Limits - Diagnostic (1) Alcohol dependence with uncomplicated withdrawal Current Visit: No Status: Acute (2) Nicotine dependence Current Visit: No Status: Chronic Qualifiers: Nicotine product type: cigarettes Substance use status: uncomplicated Qualified Code(s): F17.210 - Nicotine dependence, cigarettes, uncomplicated (3) Asthma Current Visit: No Status: Chronic Qualifiers: Asthma severity: unspecified severity Asthma persistence: unspecified Asthma complication type: unspecified Qualified Code(s): J45.909 - Unspecified asthma, uncomplicated Cleared for Admission S - Detox or Rehab [facility] Level of Care: Medically Managed Detox Regimen/Protocol: Librium Breathalyzer - Breathalyzer Breathalyzer: 0.234 Inpatient Rehab Admission - Rehab Decision to Admit Inpatient rehab admission?: No
[2018-12-08] MEDS ORDERED: IBUPROFEN 400 MG TABLET (FP) PO PRN (19:38)
[2018-12-08] MEDS ORDERED: METHOCARBAMOL 500 MG TABLET PO PRN (19:38)
[2018-12-08] MEDS ORDERED: MAGNESIUM HYDROX 2400MG/30ML ORAL SUSPENSION 30 ML CUP PO PRN (19:38)
[2018-12-08] MEDS ORDERED: chlordiazePOXIDE HCL 25 MG CAPSULE PO PRN (19:38)
[2018-12-08] MEDS ORDERED: NICOTINE POLACRILEX 2 MG GUM BUC PRN (19:38)
[2018-12-08] MEDS ORDERED: MAG HYDROX/AL HYDROX/SIMETH 30 ML UNIT-DOSE CUP PO PRN (19:38)
[2018-12-08] MEDS ORDERED: MENTHOL/PHENOL 1 EACH UD MM PRN (19:38)
[2018-12-08] MEDS ORDERED: BISMUTH SUBSALICYLATE 524 MG/30 ML UD PO PRN (19:38)
[2018-12-08] MEDS ORDERED: MAGNESIUM CITRATE 300 ML BOTTLE PO PRN (19:38)
[2018-12-08] MEDS ORDERED: hydrOXYzine PAMOATE 25 MG CAPSULE (FP) PO PRN (19:38)
[2018-12-08] MEDS ORDERED: ACETAMINOPHEN 325 MG TABLET (FP) PO PRN ×2 (19:38)
[2018-12-08] MEDS: chlordiazePOXIDE HCL 25 MG CAPSULE PO SCH (22:27)
[2018-12-08] MEDS: THIAMINE HCL 100 MG TABLET (FP) PO SCH (22:27)
[2018-12-08] MEDS: MELATONIN 5 MG TABLETS PO PRN (22:27)
[2018-12-09] MEDS: chlordiazePOXIDE HCL 25 MG CAPSULE PO SCH ×4 (05:28→22:32)
[2018-12-09] MEDS: PRENATAL VITAMINS W/ FOLIC ACID TABLET (FP) PO SCH (10:23)
[2018-12-09] MEDS: NICOTINE 7 MG/24 HOURS TOPICAL PATCH TD SCH (10:24)
--- NOTE | 2018-12-09 15:22 | PN ---
[facility] CIWA - CIWA Score Nausea/Vomitin-Mild Nausea/No Vomiting Muscle Tremors: 4-Moderate,w/Arms Extend Anxiety: 3 Agitation: 2 Paroxysmal Sweats: 2 Orientation: 0-Oriented Tacttile Disturbances: 0-None Auditory Disturbances: 0-None Visual Disturbances: 0-None Headache: 0-None Present CIWA-Ar Total Score: 12 S Progress Note (SOAP) Subjective: 43 years old male admitted on 12/08/18 for acute alcohol withdrawal sx management doing well with librium detox regimen slept through the night tolerate food well ambulating on hallway hesitate to discuss aftercare with staff patient plan to follow up with social service upon discharged from detox encourage community support group Objective: 12/09/18 15:21 Vital Signs Temperature 98.1 F 12/09/18 13:21 Pulse Rate 80 12/09/18 13:21 Respiratory Rate 18 12/09/18 13:21 Blood Pressure 126/64 12/09/18 13:21 O2 Sat by Pulse Oximetry (%) 12/09/18 15:25 order admission lab evaluation Assessment: 12/09/18 15:25 alcohol withdrawal sx Plan: continue librium detox regimen
[2018-12-09] MEDS: THIAMINE HCL 100 MG TABLET (FP) PO SCH (22:32)
[2018-12-09] MEDS: MELATONIN 5 MG TABLETS PO PRN (22:34)
[2018-12-10] MEDS: chlordiazePOXIDE HCL 25 MG CAPSULE PO SCH ×2 (05:29→10:25)
[2018-12-10 09:46] LABS: HEMATOCRIT 39.4 % (35.4-49); HEMOGLOBIN 13.2 GM/dL (11.7-16.9); MCH 30.7 pg (25.7-33.7); MCHC 33.5 g/dl (32.0-35.9); MEAN CELL VOLUME 91.7 fl (80-96); MEAN PLT VOLUME 8.4 fl (7.5-11.1); PLATELET COUNT 178 K/MM3 (134-434); RDW 13.8 % (11.9-15.9); WHITE BLOOD COUNT 7.1 K/mm3 (4.0-10.0)
[2018-12-10 10:00] LABS: ALBUMIN 3.5 g/dl (3.4-5.0); BILIRUBIN,TOTAL 0.5 mg/dL (0.2-1); BLOOD UREA NITROGEN 7.5 mg/dL (7-18); CREATININE 0.8 mg/dL (0.55-1.3); POTASSIUM 3.4 mmol/L (3.5-5.1); TOT PROT 6.8 g/dl (6.4-8.2)
[2018-12-10] MEDS: PRENATAL VITAMINS W/ FOLIC ACID TABLET (FP) PO SCH (10:25)
[2018-12-10] MEDS: NICOTINE 7 MG/24 HOURS TOPICAL PATCH TD SCH (10:25)
--- NOTE | 2018-12-10 12:50 | PN ---
[facility] CIWA - CIWA Score Nausea/Vomitin-Mild Nausea/No Vomiting Muscle Tremors: 2 Anxiety: 3 Agitation: 2 Paroxysmal Sweats: 2 Orientation: 0-Oriented Tacttile Disturbances: 0-None Auditory Disturbances: 0-None Visual Disturbances: 0-None Headache: 0-None Present CIWA-Ar Total Score: 10 S Progress Note (SOAP) Subjective: doing well wtih librium detox regimen less tremor tolerate food better Objective: 12/10/18 12:50 Vital Signs Temperature 98.6 F 12/10/18 09:32 Pulse Rate 74 12/10/18 09:32 Respiratory Rate 16 12/10/18 09:32 Blood Pressure 110/71 12/10/18 09:32 O2 Sat by Pulse Oximetry (%) Laboratory Last Values WBC 7.1 K/mm3 (4.0-10.0) 12/10/18 07:00 RBC 4.30 M/mm3 (4.00-5.60) 12/10/18 07:00 Hgb 13.2 GM/dL (11.7-16.9) 12/10/18 07:00 Hct 39.4 % (35.4-49) 12/10/18 07:00 MCV 91.7 fl (80-96) 12/10/18 07:00 MCH 30.7 pg (25.7-33.7) 12/10/18 07:00 MCHC 33.5 g/dl (32.0-35.9) 12/10/18 07:00 RDW 13.8 % (11.9-15.9) 12/10/18 07:00 Plt Count 178 K/MM3 (134-434) 12/10/18 07:00 MPV 8.4 fl (7.5-11.1) 12/10/18 07:00 Sodium 141 mmol/L (136-145) 12/10/18 07:00 Potassium 3.4 mmol/L (3.5-5.1) L 12/10/18 07:00 Chloride 101 mmol/L (98-107) 12/10/18 07:00 Carbon Dioxide 34 mmol/L (21-32) H 12/10/18 07:00 Anion Gap 6 MMOL/L (8-16) L 12/10/18 07:00 BUN 7.5 mg/dL (7-18) 12/10/18 07:00 Creatinine 0.8 mg/dL (0.55-1.3) 12/10/18 07:00 Est GFR (CKD-EPI)AfAm 126.81 12/10/18 07:00 Est GFR (CKD-EPI)NonAf 109.41 12/10/18 07:00 Random Glucose 97 mg/dL (74-106) 12/10/18 07:00 Calcium 9.0 mg/dL (8.5-10.1) 12/10/18 07:00 Total Bilirubin 0.5 mg/dL (0.2-1) 12/10/18 07:00 AST 39 U/L (15-37) H 12/10/18 07:00 ALT 36 U/L (13-61) 12/10/18 07:00 Alkaline Phosphatase 75 U/L (45-117) 12/10/18 07:00 Total Protein 6.8 g/dl (6.4-8.2) 12/10/18 07:00 Albumin 3.5 g/dl (3.4-5.0) 12/10/18 07:00 RPR Titer Nonreactive (NONREACTIVE) 12/10/18 07:00 lab noted Assessment: 12/10/18 12:50 alcohol withdrawal sx social with peers in day room alert oriented x 3 Plan: continue librium detox regimen
[2018-12-10 13:58] VITALS: BP 129/83; PULSE 64; TEMP 97.2
[2018-12-11] MEDS ORDERED: chlordiazePOXIDE HCL 10 MG CAPSULE PO PRN
[2018-12-11] MEDS ORDERED: chlordiazePOXIDE HCL 10 MG CAPSULE PO SCH (05:00)
[2018-12-12] MEDS ORDERED: chlordiazePOXIDE HCL 10 MG CAPSULE PO SCH (05:00)
[2018-12-13] MEDS ORDERED: chlordiazePOXIDE HCL 10 MG CAPSULE PO ONE (05:00)
== END 2018-12-10 16:42 | disposition home or self-care (01) | DRG 775 ==
LOC: YASAS 18:33 → Y3N 19:28
PROVIDERS: ADMIT Surgery; ATTEND Surgery
PROC: HZ2ZZZZ Detoxification Services for Substance Abuse Treatment (ICD-10-PCS; principal; 2018-12-08)
DX: F10.230 Alcohol dependence with withdrawal, uncomplicated (principal); F17.210 Nicotine dependence, cigarettes, uncomplicated; J45.909 Unspecified asthma, uncomplicated; Z88.0 Allergy status to penicillin; Z88.1 Allergy status to other antibiotic agents
CPT/HCPCS: 36415; 80053; 85027; 86593

== ENCOUNTER 2018-12-16 23:19 | Emergency (ER) | payer OTHER ==
[2018-12-17 00:33] VITALS: BP 141/89; PULSE 89; TEMP 98.8; BMI 27.8
[2018-12-17] MEDS ORDERED: FOLIC ACID INJECTION - 1 MG, THIAMINE HCL 100 MG, MULTIVIT INJECTION ADULT 10 ML in SOD... IVPB ONE (01:20)
--- NOTE | 2018-12-17 01:37 | PDOC ---
History of Present Illness - General Chief Complaint: Alcohol intoxication Stated Complaint: E.T.O.H. Time Seen by Provider: 12/17/18 00:35 - History of Present Illness Initial Comments: 12/17/18 03:56 43yo M hx EtOh and cocaine abuse, depression, and asthma BIBA found on street intoxicated. Endorses alcohol use but denies current use or hx of cocaine use or other illicit drugs. Denies smoking. States drinks 5-6 beers of unknown size per day and had about 3 today, last one "this morning." Pt has hx of withdrawal including withdrawal seizures but denies any withdrawal sx now, including tremors, headache, or nausea. Pt does not want detox. Left detox a few days ago because of "family things". Endorses fall yesterday and hit back of his head and R side of his chest. Endorses a lump on back of his head that hurts and stabbing pain in his R side of his chest/ribs, worse with breathing or moving, tender, has not tried any pain medications. Denies back pain or other injuries. Denies fever, chills, headache, dizziness, numbness/tingling, weakness, vision changes, shortness of breath, cough, chest pain, palpitations, leg swelling, abdominal pain, blood in stool, diarrhea, constipation, nausea, vomiting, dysuria, hematuria, confusion. Past History - Past Medical History Allergies/Adverse Reactions: Allergies Allergy/AdvReac Type Severity Reaction Status Date / Time doxycycline Allergy Verified 12/17/18 00:33 Fish Containing Products Allergy Verified 12/17/18 00:33 Penicillins Allergy Verified 12/17/18 00:33 Home Medications: Ambulatory Orders NK [No Known Home Medication] 12/08/18 Anemia: No Asthma: Yes Cancer: No Cardiac Disorders: No CVA: No COPD: No CHF: No Diabetes: No GI Disorders: No Disorders: No HTN: No Hypercholesterolemia: No Kidney Stones: No Liver Disease: No Seizures: No Thyroid Disease: No - Surgical History Abdominal Surgery: No Appendectomy: No Cardiac Surgery: No Cholecystectomy: No Lung Surgery: No Neurologic Surgery: No Orthopedic Surgery: Yes (right ankle surgery 2016) - Reproductive History Testicular Surgery: No - Suicide/Smoking/Psychosocial Hx Smoking History: Current some day smoker Have you smoked in the past 12 months: Yes Number of Cigarettes Smoked Daily: 15 Information on smoking cessation initiated: No 'Breaking Loose' booklet given: 12/08/18 Hx Alcohol Use: Yes Drug/Substance Use Hx: No Substance Use Type: Alcohol, Cocaine Hx Substance Use Treatment: Yes Review of Systems - Review of Systems Comments:: 12/17/18 03:56 Constitutional: Negative for chills, fever, fatigue. HENT: Positive for bump on back of head and pain at that area. Negative for sore throat, rhinorrhea, congestion. Eyes: Negative for visual disturbance. Respiratory: Negative for shortness of breath, cough, and wheezing. Cardiovascular: Positive for R chest/rib pain. Negative for chest pain, palpitations, and leg swelling. Gastrointestinal: Negative for abdominal pain, blood in stool, constipation, diarrhea, nausea, and vomiting. Genitourinary: Negative for dysuria, flank pain, and hematuria. Musculoskeletal: Positive for neck pain and R rib/chest pain. Negative for myalgias, back pain. Skin: Negative for rash. Neurological: Negative for light-headedness, dizziness, syncope, weakness, numbness and headaches. Psychiatric/Behavioral: Positive for intoxication. *Physical Exam - Vital Signs Last Vital Signs Temp Pulse Resp BP Pulse Ox 98.8 F 89 20 141/89 97 12/16/18 23:20 12/16/18 23:20 12/16/18 23:20 12/16/18 23:20 12/16/18 23:20 - Physical Exam Comments: 12/17/18 03:56 Gen: Sleepy but arousable, sitting in wheelchair, NAD, some drool coming from mouth, comfortable-appearing, disheveled HEENT: PERRL, EOMI, MMM, small 1" diameter raised TTP bump on inferior posterior head. No conjunctival pallor. Sclera are injected. Oropharynx is clear. No raccoon eyes, Fatima's sign, CSF alden/rhinorrhea, or hemotympanum. CV: +TTP R anterior chest/ribs. Regular rate and rhythm. No murmurs, rubs, or gallops. PULM: No resp distress. CTAB, no wheezes, rales, or rhonchi. ABD: soft, NT/ND, no rebound tenderness or guarding, no CVA tenderness. BACK: No TTP of c/t/l-spine. No step-offs or deformities. MSK: No bony deformities. 2+ pulses in all extremities. NEURO: Sleepy but arousable, Ox3. PERRL. CN 2-12 intact. 5/5 strength in all extremities. Sensation to light touch intact in all extremities. No pronator drift. No dysmetria. No dysdiadochokinesia. No abnormal nystagmus. Normal gait. EXTREMITIES: No cyanosis. No clubbing. No edema. No calf tenderness. PSYCH: Normal mood and thought pattern. SKIN: Warm and dry. Normal capillary refill. No rashes. No jaundice. ED Treatment Course - LABORATORY CBC & Chemistry Diagram: 12/17/18 02:10 12/17/18 02:10 - RADIOLOGY Radiology Studies Ordered: Category Date Time Status CHEST PA & LAT [RAD] Stat Radiology 12/17/18 01:20 Ordered Medical Decision Making - Medical Decision Making 12/17/18 03:56 43yo M hx EtOh and cocaine abuse, depression, and asthma BIBA found on street intoxicated. Endorses alcohol use but denies current use or hx of cocaine use or other illicit drugs. Denies smoking. States drinks 5-6 beers of unknown size per day and had about 3 today, last one "this morning." Pt has hx of withdrawal including withdrawal seizures but denies any withdrawal sx now, including tremors, headache, or nausea. Pt does not want detox. Left detox a few days ago because of "family things". Endorses fall yesterday and hit back of his head and R side of his chest. Endorses a lump on back of his head that hurts and stabbing pain in his R side of his chest/ribs, worse with breathing or moving, tender, has not tried any pain medications. Denies back pain or other injuries. Denies fever, chills, headache, dizziness, numbness/tingling, weakness, vision changes, shortness of breath, cough, chest pain, palpitations, leg swelling, abdominal pain, blood in stool, diarrhea, constipation, nausea, vomiting, dysuria, hematuria, confusion. Hemodynamically stable, afebrile, sleepy but arousable and neurologically intact. Due to intoxication, fall, and head trauma, consider intracranial hemorrhage or cervical fx and r/o with CTH and c-spine. Due to fall and R chest/ rib pain, obtain CXR to r/o rib fx. No CP, SOB or cough and lungs CTAB, but also consider PNA or cardiac etiology as cause of pain and r/o with CXR, EKG and labs. AMS and drowsiness most likely 2/2 EtOh abuse, but consider and r/o other intoxication, infection, metabolic derangement, intracranial hemorrhage, or anemia with labs and imaging. -CBC, CMP, cardiac profile, alcohol, UA/UC, Utox -CTH/c-spine -CXR -EKG -Banana bag -Dispo: likely d/c home pending w/u CTH/c-spine and CXR reviewed with Dr Watkins. Negative for acute abnormalities. Labs reviewed. Of note, WBC 13.4, K 3.4, trop<0.02, alc 261.7. Urine and EKG not obtained. Pt wants to leave. Pt feels better s/p banana bag. Pt is alert and oriented and capable of making decisions. Will dc home with PCP f/u. Return precautions given. Pt understands all dc instructions and all questions were answered. *DC/Admit/Observation/Transfer Diagnosis at time of Disposition: Alcohol intoxication, Fall - Discharge Dispostion Disposition: HOME Condition at time of disposition: Fair Decision to Admit order: No - Referrals Referrals: [facility] [place] [Provider Group] - Patient Instructions Printed Discharge Instructions: DI for Alcohol Abuse Additional Instructions: You have been seen in the Emergency Department for alcohol intoxication and fall. Your EKG, chest X-ray, CT scans of your head and neck, and labs, including Troponin (a heart enzyme), show no signs concerning for an emergent condition such as a heart attack, rib fracture, brain injury, or neck fracture. Your alcohol level is very high. We have given you a referral to the [place] [facility] clinic to set up a primary care doctor. Call the office to make a follow-up appointment with them within 1 week. Return to the ED immediately if you experience chest pain, difficulty breathing , dizziness, fever, or any other new or worsening symptom. - Post Discharge Activity
[2018-12-17 02:30] LABS: BASO % 0.9 % (0-2.0); EOS % 1.1 % (0-4.5); HEMATOCRIT 43.3 % (35.4-49); HEMOGLOBIN 14.2 GM/dL (11.7-16.9); LYMPH % 13.7 % (8-40); MCH 29.8 pg (25.7-33.7); MCHC 32.8 g/dl (32.0-35.9); MEAN PLT VOLUME 7.5 fl (7.5-11.1); MONO % 13.1 % (3.8-10.2); NEUT % 71.2 % (42.8-82.8); PLATELET COUNT 191 K/MM3 (134-434); RBC 4.76 M/mm3 (4.00-5.60); RDW 14.2 % (11.9-15.9); WHITE BLOOD COUNT 13.4 K/mm3 (4.0-10.0)
[2018-12-17 02:57] LABS: ALBUMIN 3.9 g/dl (3.4-5.0); BILIRUBIN,TOTAL 0.2 mg/dL (0.2-1); BLOOD UREA NITROGEN 7.4 mg/dL (7-18); CALCIUM 8.7 mg/dL (8.5-10.1); CREATININE 0.7 mg/dL (0.55-1.3); POTASSIUM 3.4 mmol/L (3.5-5.1); TOT PROT 7.9 g/dl (6.4-8.2)
--- NOTE | 2018-12-17 03:51 | PDOC ---
Attending Attestation - ED Attending Attestation I have performed the following: I have examined & evaluated the patient, The case was reviewed & discussed with the resident, I agree w/resident's findings & plan - Medical Decision Making 12/17/18 03:50 Referring Physician: GIOVNANA HENLEY Patient Name: JOSE HERNANDEZ THIS IS A PRELIMINARY REPORT FROM [facility] DATE OF SERVICE: 2018-12-17 02:56:37 IMAGES: [id number] EXAM: CERVICAL SPINE CT W/O CONTR HISTORY: Trauma COMPARISON: None. FINDINGS: Negative for cervical spine fracture or malalignment 12/17/18 03:51 Patient Name: JOSE HERNANDEZ THIS IS A PRELIMINARY REPORT FROM [facility] DATE OF SERVICE: 2018-12-17 02:58:51 IMAGES: 181 EXAM: HEAD CT WITHOUT CONTRAST HISTORY: Trauma altered mental status COMPARISON: None. FINDINGS: Involutional changes somewhat out of proportion to relatively young age. No hemorrhage. No mass. No visible infarct. Osseous structures are intact.
== END 2018-12-17 06:56 | disposition home or self-care (01) ==
LOC: JER 23:19
PROC: 3E033GC Introduction of Other Therapeutic Substance into Peripheral Vein, Percutaneous Approach (ICD-10-PCS; principal; 2018-12-16)
DX: F10.120 Alcohol abuse with intoxication, uncomplicated (principal); Y90.8 Blood alcohol level of 240 mg/100 ml or more
CPT/HCPCS: 36415; 70450-TC; 71046-TC-FY; 72125-TC; 80053; 80307; 82550; 82553; 84484; 85025; 96365; 96366; 99284-25; J7030

== ENCOUNTER 2018-12-19 12:24 | Inpatient (IN) | payer OTHER ==
[2018-12-19 13:02] VITALS: BMI 23.6
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
--- NOTE | 2018-12-19 14:39 | PN ---
Teaching Attending Note Name of Resident: Kong Gar ATTENDING PHYSICIAN STATEMENT I saw and evaluated the patient. I reviewed the resident's note and discussed the case with the resident. I agree with the resident's findings and plan as documented. SUBJECTIVE: 43 yo with asthma, depression here for alcohol detox. Last drink this afternoon. Drinks several cans of beer daily. Last detox here 10/2018. OBJECTIVE: Vital Signs - 24 hr 12/19/18 12:54 Temperature 97.3 F L Pulse Rate 112 H Respiratory 18 Rate Blood Pressure 138/80 alert and oriented tremulous ASSESSMENT AND PLAN: AUD- start alcohol detox protocol
[2018-12-19] MEDS ORDERED: MENTHOL/PHENOL 1 EACH UD MM PRN (14:43)
[2018-12-19] MEDS ORDERED: MAGNESIUM HYDROX 2400MG/30ML ORAL SUSPENSION 30 ML CUP PO PRN (14:43)
[2018-12-19] MEDS ORDERED: ACETAMINOPHEN 325 MG TABLET (FP) PO PRN ×2 (14:43)
[2018-12-19] MEDS ORDERED: hydrOXYzine PAMOATE 25 MG CAPSULE (FP) PO PRN (14:43)
[2018-12-19] MEDS ORDERED: BISMUTH SUBSALICYLATE 262 MG/15 ML BTL PO PRN (14:43)
[2018-12-19] MEDS ORDERED: MAGNESIUM CITRATE 300 ML BOTTLE PO PRN (14:43)
[2018-12-19] MEDS ORDERED: METHOCARBAMOL 500 MG TABLET PO PRN (14:43)
[2018-12-19] MEDS ORDERED: chlordiazePOXIDE HCL 25 MG CAPSULE PO PRN (14:43)
[2018-12-19] MEDS ORDERED: IBUPROFEN 400 MG TABLET (FP) PO PRN (14:43)
[2018-12-19] MEDS ORDERED: MAG HYDROX/AL HYDROX/SIMETH 30 ML UNIT-DOSE CUP PO PRN (14:43)
[2018-12-19] MEDS: chlordiazePOXIDE HCL 25 MG CAPSULE PO SCH ×2 (16:54→22:08)
[2018-12-19] MEDS: MELATONIN 5 MG TABLETS PO PRN (22:08)
[2018-12-19] MEDS: THIAMINE HCL 100 MG TABLET (FP) PO SCH (22:08)
[2018-12-20] MEDS: chlordiazePOXIDE HCL 25 MG CAPSULE PO SCH ×4 (05:50→22:00)
[2018-12-20] MEDS ORDERED: NICOTINE 14 MG/24 HOURS TOPICAL PATCH TD SCH (10:00)
[2018-12-20] MEDS ORDERED: PRENATAL VITAMINS W/ FOLIC ACID TABLET (FP) PO SCH (10:00)
--- NOTE | 2018-12-20 10:51 | PN ---
S CIWA - CIWA Score Nausea/Vomitin Muscle Tremors: 2 Anxiety: 2 Agitation: 2 Paroxysmal Sweats: 1-Minimal Palms Moist Orientation: 0-Oriented Tacttile Disturbances: 0-None Auditory Disturbances: 0-None Visual Disturbances: 0-None Headache: 2-Mild CIWA-Ar Total Score: 11 BHS Progress Note (SOAP) Subjective: a;ert,irritable,anxious,interrupted sleep,tremor Objective: 12/20/18 10:50 Vital Signs Temperature 98.1 F 12/20/18 09:19 Pulse Rate 71 12/20/18 09:19 Respiratory Rate 18 12/20/18 09:19 Blood Pressure 120/75 12/20/18 09:19 O2 Sat by Pulse Oximetry (%) 12/20/18 10:50 labs pending Assessment: 12/20/18 10:51 withdrawal symptom Plan: continue detox,librium regimen
--- NOTE | 2018-12-20 11:07 | CONSULT ---
[facility] Consult - Data Date of interview: 12/20/18 Psychiatric History: Patient was approached at bedside to request an interview. He told com writer:'" I don't want to see a psychiarist"
[2018-12-20 12:09] LABS: HEMATOCRIT 38.3 % (35.4-49); HEMOGLOBIN 12.7 GM/dL (11.7-16.9); MCH 30.4 pg (25.7-33.7); MCHC 33.3 g/dl (32.0-35.9); MEAN CELL VOLUME 91.5 fl (80-96); MEAN PLT VOLUME 8.7 fl (7.5-11.1); PLATELET COUNT 192 K/MM3 (134-434); RBC 4.18 M/mm3 (4.00-5.60); RDW 13.9 % (11.9-15.9); WHITE BLOOD COUNT 10.6 K/mm3 (4.0-10.0)
[2018-12-20 12:23] LABS: ALBUMIN 3.3 g/dl (3.4-5.0); BILIRUBIN,TOTAL 0.5 mg/dL (0.2-1); BLOOD UREA NITROGEN 7.1 mg/dL (7-18); CALCIUM 8.6 mg/dL (8.5-10.1); CREATININE 0.7 mg/dL (0.55-1.3); TOT PROT 6.6 g/dl (6.4-8.2)
[2018-12-20] MEDS: THIAMINE HCL 100 MG TABLET (FP) PO SCH (22:00)
[2018-12-20] MEDS: MELATONIN 5 MG TABLETS PO PRN (22:01)
[2018-12-21] MEDS ORDERED: chlordiazePOXIDE HCL 25 MG CAPSULE PO SCH (05:00)
[2018-12-21 07:01] VITALS: BP 126/79; PULSE 71; TEMP 96.3
--- NOTE | 2018-12-21 09:25 | PN ---
S Progress Note Note: pt arrived in withdrawals pt c/o of withdrawals and aggressive symptomatic management attempted however, pt in spite of extensive motivational counseling regarding the risk of relapse, seizures, DT's and or loss, pt chose to sign out AMA.
--- NOTE | 2018-12-21 09:27 | DS ---
[facility] Detox Discharge Summary Admission Date: 12/19/18 - History Present History: Alcohol Dependence - Physical Exam Results Vital Signs: Vital Signs Temperature 96.3 F L 12/21/18 07:00 Pulse Rate 71 12/21/18 07:00 Respiratory Rate 18 12/21/18 07:00 Blood Pressure 126/79 12/21/18 07:00 O2 Sat by Pulse Oximetry (%) Pertinent Admission Physical Exam Findings: pt arrived in withdrawals pt signed out AMA. - Treatment Patient has Accepted a Rehab Referral to: pt declined rehab; referral provided - Medication Discharge Medications: Ambulatory Orders NK [No Known Home Medication] 12/08/18 - Diagnosis (1) Alcohol dependence with uncomplicated intoxication Current Visit: Yes Status: Chronic (2) Asthma Current Visit: Yes Status: Chronic Qualifiers: Asthma severity: unspecified severity Asthma persistence: unspecified Asthma complication type: unspecified Qualified Code(s): J45.909 - Unspecified asthma, uncomplicated (3) Depression Current Visit: No Status: Chronic Qualifiers: Depression Type: unspecified Qualified Code(s): F32.9 - Major depressive disorder, single episode, unspecified (4) MDD (major depressive disorder) Current Visit: No Status: Chronic (5) Nicotine dependence Current Visit: Yes Status: Chronic Qualifiers: Nicotine product type: cigarettes Substance use status: uncomplicated Qualified Code(s): F17.210 - Nicotine dependence, cigarettes, uncomplicated - AMA Did Patient Leave Against Medical Advice: Yes
[2018-12-22] MEDS ORDERED: chlordiazePOXIDE HCL 10 MG CAPSULE PO PRN
[2018-12-22] MEDS ORDERED: chlordiazePOXIDE HCL 10 MG CAPSULE PO SCH (05:00)
[2018-12-23] MEDS ORDERED: chlordiazePOXIDE HCL 10 MG CAPSULE PO SCH (05:00)
[2018-12-24] MEDS ORDERED: chlordiazePOXIDE HCL 10 MG CAPSULE PO ONE (05:00)
== END 2018-12-21 09:15 | disposition left against medical advice (07) | DRG 770 ==
LOC: YASAS 12:24 → Y6N 15:13
PROVIDERS: ADMIT Surgery; ATTEND Surgery
PROC: HZ2ZZZZ Detoxification Services for Substance Abuse Treatment (ICD-10-PCS; principal; 2018-12-19)
DX: F10.230 Alcohol dependence with withdrawal, uncomplicated (principal); F17.210 Nicotine dependence, cigarettes, uncomplicated; F32.9 Major depressive disorder, single episode, unspecified; J45.909 Unspecified asthma, uncomplicated; Z88.0 Allergy status to penicillin; Z88.1 Allergy status to other antibiotic agents; Z91.013 Allergy to seafood
CPT/HCPCS: 36415; 80053; 85027; 86480; 86593; 87389

== ENCOUNTER 2018-12-22 01:05 | Emergency (ER) | payer OTHER ==
[2018-12-22 01:50] VITALS: BMI 25.1
--- NOTE | 2018-12-22 02:03 | PDOC ---
Attending Attestation - Resident Resident Name: Jimenez Love - ED Attending Attestation I have performed the following: I have examined & evaluated the patient, The case was reviewed & discussed with the resident, I agree w/resident's findings & plan - HPI HPI: 12/22/18 04:18 Pt comes with polysubstance abuse He doesn't want detox - Physicial Exam PE: 12/22/18 04:19 Agree with reisdent exam - Medical Decision Making 12/22/18 03:11 Pt is positive for benzos and alcohol. 12/22/18 04:19 Home in the AM when he is sober. 12/22/18 05:54 Stable for discharge at this time. 12/22/18 06:25 Pt is stable to go home.
--- NOTE | 2018-12-22 02:06 | PDOC ---
History of Present Illness - General Chief Complaint: Alcohol intoxication Stated Complaint: INTOXICATED Time Seen by Provider: 12/22/18 02:01 History Source: Patient Exam Limitations: Intoxication - History of Present Illness Initial Comments: Giorgi Leary is a 43 yo M w a pmh of Etoh abuse, polysubstance abuse, and asthma presents to the ER BIBEMS intoxicated. He is arousable to sternal rub and smells of alcohol. He is not awake and does not provide any history. Vital signs at bedside are stable and WNL. Past History - Past Medical History Allergies/Adverse Reactions: Allergies Allergy/AdvReac Type Severity Reaction Status Date / Time doxycycline Allergy Verified 12/22/18 01:50 Fish Containing Products Allergy Verified 12/22/18 01:50 Penicillins Allergy Verified 12/22/18 01:50 tomato Allergy Hives Verified 12/22/18 01:50 Home Medications: Ambulatory Orders NK [No Known Home Medication] 12/08/18 Anemia: No Asthma: Yes Cancer: No Cardiac Disorders: No CVA: No COPD: No CHF: No Diabetes: No GI Disorders: No Disorders: No HTN: No Hypercholesterolemia: No Kidney Stones: No Liver Disease: No Seizures: No Thyroid Disease: No - Surgical History Abdominal Surgery: No Appendectomy: No Cardiac Surgery: No Cholecystectomy: No Lung Surgery: No Neurologic Surgery: No Orthopedic Surgery: Yes (right ankle surgery 2016) - Reproductive History Testicular Surgery: No - Immunization History Immunization Up to Date: (unknown) - Suicide/Smoking/Psychosocial Hx Smoking History: Current some day smoker Have you smoked in the past 12 months: Yes Number of Cigarettes Smoked Daily: 20 Information on smoking cessation initiated: No 'Breaking Loose' booklet given: 12/08/18 Hx Alcohol Use: No Drug/Substance Use Hx: No Substance Use Type: Alcohol, Cocaine Hx Substance Use Treatment: Yes Review of Systems - Review of Systems Able to Perform ROS?: No (intoxicated) *Physical Exam - Vital Signs Last Vital Signs Temp Pulse Resp BP Pulse Ox 97.9 F 90 17 125/89 100 12/22/18 01:05 12/22/18 01:05 12/22/18 01:05 12/22/18 01:05 12/22/18 01:05 - Physical Exam Comments: GENERAL: Asleep. Arousable to sternal rub. HEENT: Pupils are constricted. Normocephalic, atraumatic. PERRL. CARDIOVASCULAR: Normal S1, S2. Regular rate and rhythm. PULMONARY: No evidence of respiratory distress. Lungs clear to auscultation bilaterally. No wheezing, rales or rhonchi. ABDOMEN: Soft, non-distended, non-tender. EXTREMITIES: Normal ROM in all four extremities. No gross deformities. SKIN: Warm, dry. No rash NEUROLOGICAL: Cannot assess Neurologic: positive: Respond to painful stimul, Confused. negative: Fully Oriented, Alert, Normal Mood/Affect, Normal Response, Motor Strength 5/5, Abnormal Cranial NS, Facial Droop ED Treatment Course - LABORATORY CBC & Chemistry Diagram: 12/22/18 02:18 12/22/18 02:18 Medical Decision Making - Medical Decision Making Giorgi Leary is a 43 yo M w a pmh of Etoh abuse, polysubstance abuse, and asthma presents to the ER BIBEMS intoxicated. He is arousable to sternal rub and smells of alcohol. He is not awake and does not provide any history. Vital signs at bedside are stable and WNL. Vital Signs Temp Pulse Resp BP Pulse Ox 97.9 F 90 17 125/89 100 12/22/18 01:05 12/22/18 01:05 12/22/18 01:05 12/22/18 01:05 12/22/18 01:05 MDM: Patient is intoxicated but lying in bed sleepy with normal vitals and no distress. No signs of trauma Plan: Labs, EKG, urine, IV hydrations, banana bag, re-assess. UTOX: positive for alcohol and benzos - Patient received 1LNS - Patient also received Banana bag Dispo: Home when clinically sober *DC/Admit/Observation/Transfer Diagnosis at time of Disposition: Good ability to follow directions, Alcohol dependence with uncomplicated intoxication - Discharge Dispostion Disposition: HOME Condition at time of disposition: Stable Decision to Admit order: No - Referrals - Patient Instructions - Post Discharge Activity
[2018-12-22] MEDS ORDERED: SODIUM CHLORIDE 0.9% 500 ML INFUS.BAG IV ONE (02:07)
[2018-12-22] MEDS ORDERED: FOLIC ACID INJECTION - 1 MG, THIAMINE HCL 100 MG, MULTIVIT INJECTION ADULT 10 ML in SOD... IVPB ONE (02:07)
[2018-12-22 02:44] LABS: BASO % 0.3 % (0-2.0); EOS % 1.4 % (0-4.5); HEMATOCRIT 44.3 % (35.4-49); HEMOGLOBIN 14.5 GM/dL (11.7-16.9); LYMPH % 16.2 % (8-40); MCHC 32.8 g/dl (32.0-35.9); MEAN CELL VOLUME 91.6 fl (80-96); MEAN PLT VOLUME 7.9 fl (7.5-11.1); MONO % 6.2 % (3.8-10.2); NEUT % 75.9 % (42.8-82.8); PLATELET COUNT 237 K/MM3 (134-434); RBC 4.84 M/mm3 (4.00-5.60); RDW 13.9 % (11.9-15.9); WHITE BLOOD COUNT 11.7 K/mm3 (4.0-10.0)
[2018-12-22 02:46] LABS: URINE APPEARANCE Clear; URINE BILIRUBIN Negative (NEGATIVE); URINE COLOR Light yellow; URINE GLUCOSE (UA) Negative (NEGATIVE); URINE KETONE Negative (NEGATIVE); URINE LEUK ESTERASE Negative (NEGATIVE); URINE NITRITE Negative (NEGATIVE); URINE PROTEIN Negative (NEGATIVE); URINE UROBILINOGEN 0.2 mg/dL (0.2-1.0)
[2018-12-22 02:59] LABS: COCAINE, UR NEGATIVE ng/ml (CUTOFF=300); METHADONE, UR NEGATIVE ng/ml (CUTOFF=300); OPIATES, URI NEGATIVE ng/ml (CUTOFF=300); PHENCYCLIDINE,URINE NEGATIVE ng/ml (CUTOFF=25); URINE AMPHETAMINES NEGATIVE ng/ml (CUTOFF=500); URINE BARBITURATES NEGATIVE ng/ml (CUTOFF=200)
[2018-12-22 03:00] LABS: INR 0.93 (0.83-1.09); URINE BENZODIAZEPINES POSITIVE ng/ml (CUTOFF=200)
[2018-12-22 03:11] LABS: ALBUMIN 3.7 g/dl (3.4-5.0); BILIRUBIN,TOTAL 0.2 mg/dL (0.2-1); BLOOD UREA NITROGEN 6.6 mg/dL (7-18); CALCIUM 8.4 mg/dL (8.5-10.1); CREATININE 0.7 mg/dL (0.55-1.3); POTASSIUM 3.7 mmol/L (3.5-5.1); TOT PROT 7.8 g/dl (6.4-8.2)
[2018-12-22 06:11] VITALS: BP 117/71; PULSE 80; TEMP 97.4
--- NOTE | 2018-12-23 16:59 | EKG ---
Test Reason : Blood Pressure : / mmHG Vent. Rate : 086 BPM Atrial Rate : 086 BPM P-R Int : 132 ms QRS Dur : 094 ms QT Int : 406 ms P-R-T Axes : 068 040 054 degrees QTc Int : 485 ms NORMAL SINUS RHYTHM WITH SINUS ARRHYTHMIA PROLONGED QT ABNORMAL ECG WHEN COMPARED WITH ECG OF 18-DEC-2017 15:07, INCOMPLETE RIGHT BUNDLE BRANCH BLOCK IS NO LONGER PRESENT Confirmed by MINO SANTILLAN MD ([id number]) on 12/23/2018 4:59:11 PM Referred By: Confirmed By:MINO SANTILLAN MD
== END 2018-12-22 06:25 | disposition home or self-care (01) ==
LOC: JER 01:05
PROC: 3E033GC Introduction of Other Therapeutic Substance into Peripheral Vein, Percutaneous Approach (ICD-10-PCS; principal; 2018-12-22)
DX: F10.220 Alcohol dependence with intoxication, uncomplicated (principal); F13.10 Sedative, hypnotic or anxiolytic abuse, uncomplicated; Y90.8 Blood alcohol level of 240 mg/100 ml or more; Z87.09 Personal history of other diseases of the respiratory system
CPT/HCPCS: 36415; 71045-TC-FY; 80053; 80307; 81003; 84484; 85025; 85610; 93005; 93010; 96365; 96366; 99282-25; J7030

== ENCOUNTER 2018-12-26 10:56 | Inpatient (IN) | payer OTHER ==
[2018-12-26 11:57] VITALS: BMI 23.7
--- NOTE | 2018-12-26 12:37 | HP ---
CIWA Score Nausea/Vomitin-Mild Nausea/No Vomiting Muscle Tremors: None Anxiety: 3 Agitation: 3 Paroxysmal Sweats: No Perspiration Orientation: 1-Uncertain about Date Tacttile Disturbances: 0-None Auditory Disturbances: 2-Mild Harshness/Frighten Visual Disturbances: 0-None Headache: 2-Mild CIWA-Ar Total Score: 12 - Admission Criteria OASAS Guidelines: Admission for Medically Managed Detox: Requires at least one of the followin. CIWA greater than 12 2. Seizures within the past 24 hours 3. Delirium tremens within the past 24 hours 4. Hallucinations within the past 24 hours 5. Acute intervention needed for co occurring medical disorder 6. Acute intervention needed for co occurring psychiatric disorder 7. Severe withdrawal that cannot be handled at a lower level of care (continued vomiting, continued diarrhea, abnormal vital signs) requiring intravenous medication and/or fluids 8. Admission ROS [facility] Chief Complaint: alcohol detox Allergies/Adverse Reactions: Allergies Allergy/AdvReac Type Severity Reaction Status Date / Time doxycycline Allergy Verified 12/26/18 11:50 Fish Containing Products Allergy Verified 12/26/18 11:50 onion Allergy Verified 12/26/18 11:51 Penicillins Allergy Verified 12/26/18 11:50 tomato Allergy Hives Verified 12/26/18 11:50 History of Present Illness: Patient is a 43 yo M with a PMHx of asthma, depression, presenting here for alcohol detox. Drinks "a lot" of alcohol. Can't quantify. Says he drinks with as much money as he has in his pocket. He mentions that he sometimes drinks 10-24oz beers in a day. Last drink this morning. 3-24oz beer, and vodka no hx of seizures. Has blacked out many times in the past. Says he wants to get cleaned up and wants to stop drinking completely. Has been in and out of detox in the past. Says he wants to detox and rehab. Smokes half pack a day. unemployed. homeless. - Ebola screening Have you traveled outside of the country in the last 21 days: No Have you had contact with anyone from an Ebola affected area: No - Review of Systems Constitutional: Loss of Appetite, Unintentional Wgt. Loss Respiratory: denies: Cough, Shortness of Breath Cardiac: denies: Chest Pain, Palpitations GI: reports: Diarrhea Patient History - Patient Medical History Hx Anemia: No Hx Asthma: Yes Hx Chronic Obstructive Pulmonary Disease (COPD): No Hx Cancer: No Hx Cardiac Disorders: No Hx Congestive Heart Failure: No Hx Hypertension: No Hx Hypercholesterolemia: No Hx Pacemaker: No HX Cerebrovascular Accident: No Hx Seizures: No Hx Diabetes: No Hx Gastrointestinal Disorders: No Hx Liver Disease: No Hx Genitourinary Disorders: No Hx Sexually Transmitted Disorders: No Hx Renal Disease (ESRD): No Hx Thyroid Disease: No Hx Human Immunodeficiency Virus (HIV): No Hx Hepatitis C: No Hx Depression: Yes Hx Suicide Attempt: No Hx Bipolar Disorder: No Hx Schizophrenia: No - Patient Surgical History Past Surgical History: Yes Hx Neurologic Surgery: No Hx Cataract Extraction: No Hx Cardiac Surgery: No Hx Lung Surgery: No Hx Breast Surgery: No Hx Breast Biopsy: No Hx Abdominal Surgery: No Hx Appendectomy: No Hx Cholecystectomy: No Hx Genitourinary Surgery: No Hx Section: No Hx Orthopedic Surgery: Yes (right ankle surgery 2016) Other Surgical History: right groin hernia sx 2002 Anesthesia Reaction: No - PPD History Date: 12/20/17 Results: 0 mm - Smoking Cessation Smoking history: Current some day smoker Have you smoked in the past 12 months: Yes Aproximately how many cigarettes per day: 20 Hx Chewing Tobacco Use: No Initiated information on smoking cessation: Yes 'Breaking Loose' booklet given: 12/26/18 - Substances abused Alcohol Other (specify): beer Substance route: Oral Frequency: Daily Amount used: 10 24oz beers, wine Age of first use: 9 Date of last use: 12/26/18 Family Disease History - Family Disease History Family Disease History: Other: Father (Alcoholic), Mother (Asthma, thyroid , HTN ), Daughter (Asthma) Admission Physical Exam BHS - Vital Signs Vital Signs: Vital Signs - 24 hr 12/26/18 11:52 Temperature 97.6 F Pulse Rate 106 H Respiratory 17 Rate Blood Pressure 107/69 - Physical General Appearance: Yes: No Apparent Distress Respiratory: Yes: No Respiratory Distress, No Accessory Muscle Use. No: Wheezing Cardiology: Yes: Regular Rhythm, S1, S2, Tachycardia Abdominal: Yes: Non Tender, Soft - Diagnostic (1) Asthma Current Visit: No Status: Chronic Qualifiers: Asthma severity: unspecified severity Asthma persistence: unspecified Asthma complication type: unspecified Qualified Code(s): J45.909 - Unspecified asthma, uncomplicated (2) Depression Current Visit: No Status: Chronic Qualifiers: Depression Type: unspecified Qualified Code(s): F32.9 - Major depressive disorder, single episode, unspecified (3) MDD (major depressive disorder) Current Visit: No Status: Chronic (4) Nicotine dependence Current Visit: No Status: Chronic Qualifiers: Nicotine product type: cigarettes Substance use status: uncomplicated Qualified Code(s): F17.210 - Nicotine dependence, cigarettes, uncomplicated Cleared for Admission BHS - Detox or Rehab S Level of Care: Medically Managed Breathalyzer - Breathalyzer Breathalyzer: 0.156 Urine Drug Screen - Test Device Lot number: [id number] Expiration date: 09/14/20 - Control Is test valid?: Yes - Results Drug screen NEGATIVE: No Urine drug screen results: BZO-Benzodiazepines Inpatient Rehab Admission - Rehab Decision to Admit Inpatient rehab admission?: No
[2018-12-26] MEDS ORDERED: ACETAMINOPHEN 325 MG TABLET (FP) PO PRN ×2 (12:49)
[2018-12-26] MEDS ORDERED: MAG HYDROX/AL HYDROX/SIMETH 30 ML UNIT-DOSE CUP PO PRN (12:49)
[2018-12-26] MEDS ORDERED: MENTHOL/PHENOL 1 EACH UD MM PRN (12:49)
[2018-12-26] MEDS ORDERED: hydrOXYzine PAMOATE 25 MG CAPSULE (FP) PO PRN (12:49)
[2018-12-26] MEDS ORDERED: MAGNESIUM CITRATE 300 ML BOTTLE PO PRN (12:49)
[2018-12-26] MEDS ORDERED: BISMUTH SUBSALICYLATE 262 MG/15 ML BTL PO PRN (12:49)
[2018-12-26] MEDS ORDERED: chlordiazePOXIDE HCL 25 MG CAPSULE PO PRN (12:49)
[2018-12-26] MEDS ORDERED: IBUPROFEN 400 MG TABLET (FP) PO PRN (12:49)
[2018-12-26] MEDS ORDERED: MELATONIN 5 MG TABLETS PO PRN (12:49)
[2018-12-26] MEDS ORDERED: MAGNESIUM HYDROX 2400MG/30ML ORAL SUSPENSION 30 ML CUP PO PRN (12:49)
[2018-12-26] MEDS ORDERED: METHOCARBAMOL 500 MG TABLET PO PRN (12:49)
[2018-12-26] MEDS ORDERED: ALBUTEROL SO4 8 GM HFA INHALER IH PRN (12:51)
[2018-12-26] MEDS ORDERED: ALBUTEROL SO4 2.5/IPRATROPIUM 0.5 INH SOL 3 ML VIAL.NEB. NEB PRN (12:51)
--- NOTE | 2018-12-26 12:58 | PN ---
Teaching Attending Note Name of Resident: Malissa Yañez ATTENDING PHYSICIAN STATEMENT I saw and evaluated the patient. I reviewed the resident's note and discussed the case with the resident. I agree with the resident's findings and plan as documented. SUBJECTIVE: Agree with resident's subjective findings OBJECTIVE: Agree with resident's objective findings ASSESSMENT AND PLAN: Agree with admission for detox for alcohol.
[2018-12-26] MEDS: NICOTINE 21 MG/24 HOURS TOPICAL PATCH TD SCH (14:17)
[2018-12-26] MEDS: chlordiazePOXIDE HCL 25 MG CAPSULE PO SCH ×2 (17:45→22:12)
[2018-12-26] MEDS: THIAMINE HCL 100 MG TABLET (FP) PO SCH (21:37)
[2018-12-27] MEDS: chlordiazePOXIDE HCL 25 MG CAPSULE PO SCH ×4 (05:48→22:11)
[2018-12-27] MEDS: PRENATAL VITAMINS W/ FOLIC ACID TABLET (FP) PO SCH (10:07)
[2018-12-27] MEDS: NICOTINE 21 MG/24 HOURS TOPICAL PATCH TD SCH (10:07)
--- NOTE | 2018-12-27 10:25 | PN ---
S CIWA - CIWA Score Nausea/Vomitin Muscle Tremors: 2 Anxiety: 2 Agitation: 2 Paroxysmal Sweats: No Perspiration Orientation: 0-Oriented Tacttile Disturbances: 1-Very Mild Itch/Numbness Auditory Disturbances: 0-None Visual Disturbances: 0-None Headache: 2-Mild CIWA-Ar Total Score: 11 BHS Progress Note (SOAP) Subjective: alert,irritable,anxious,interrupted sleep,tremor Objective: 12/27/18 10:24 Vital Signs Temperature 97.5 F L 12/27/18 09:17 Pulse Rate 93 H 12/27/18 09:17 Respiratory Rate 18 12/27/18 09:17 Blood Pressure 138/81 12/27/18 09:17 O2 Sat by Pulse Oximetry (%) 12/27/18 10:24 labs pending Assessment: 12/27/18 10:24 withdrawal symptom Plan: continue detox,librium regimen
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
[2018-12-27] MEDS: FLUoxetine HCL 20 MG CAPSULE (FP) PO SCH (12:20)
[2018-12-27] MEDS: THIAMINE HCL 100 MG TABLET (FP) PO SCH (22:11)
[2018-12-27] MEDS: traZODone HCL 100 MG TABLET (FP) PO SCH (22:11)
[2018-12-28] MEDS: chlordiazePOXIDE HCL 25 MG CAPSULE PO SCH ×4 (06:15→22:25)
[2018-12-28] MEDS: PRENATAL VITAMINS W/ FOLIC ACID TABLET (FP) PO SCH (10:49)
[2018-12-28] MEDS: NICOTINE 21 MG/24 HOURS TOPICAL PATCH TD SCH (10:49)
[2018-12-28] MEDS: FLUoxetine HCL 20 MG CAPSULE (FP) PO SCH (10:49)
--- NOTE | 2018-12-28 12:12 | PN ---
S CIWA - CIWA Score Nausea/Vomitin Muscle Tremors: 2 Anxiety: 2 Agitation: 1-Slight > Activity Paroxysmal Sweats: No Perspiration Orientation: 0-Oriented Tacttile Disturbances: 0-None Auditory Disturbances: 0-None Visual Disturbances: 0-None Headache: 1-Very Mild CIWA-Ar Total Score: 8 BHS Progress Note (SOAP) Subjective: alert,irritable,anxious,interrupted sleep,tremor Objective: 12/28/18 12:11 Vital Signs Temperature 97.5 F L 12/28/18 09:24 Pulse Rate 75 12/28/18 09:24 Respiratory Rate 18 12/28/18 09:24 Blood Pressure 91/51 L 12/28/18 09:24 O2 Sat by Pulse Oximetry (%) Assessment: 12/28/18 12:13 withdrawal symptom Plan: continue detox,librium regimen
[2018-12-28] MEDS: traZODone HCL 100 MG TABLET (FP) PO SCH (22:25)
[2018-12-28] MEDS: THIAMINE HCL 100 MG TABLET (FP) PO SCH (22:25)
[2018-12-29] MEDS ORDERED: chlordiazePOXIDE HCL 10 MG CAPSULE PO PRN
[2018-12-29] MEDS: chlordiazePOXIDE HCL 10 MG CAPSULE PO SCH ×4 (06:21→22:23)
[2018-12-29] MEDS: PRENATAL VITAMINS W/ FOLIC ACID TABLET (FP) PO SCH (10:34)
[2018-12-29] MEDS: FLUoxetine HCL 20 MG CAPSULE (FP) PO SCH (10:35)
[2018-12-29] MEDS: NICOTINE 21 MG/24 HOURS TOPICAL PATCH TD SCH (10:35)
--- NOTE | 2018-12-29 10:51 | PN ---
BHS CIWA - CIWA Score Nausea/Vomitin-No Nausea/No Vomiting Muscle Tremors: None Anxiety: 2 Agitation: 0-Normal Activity Paroxysmal Sweats: 2 Orientation: 0-Oriented Tacttile Disturbances: 0-None Auditory Disturbances: 0-None Visual Disturbances: 0-None Headache: 2-Mild CIWA-Ar Total Score: 6 BHS Progress Note (SOAP) Subjective: c/o sweats, headache, and anxiety. Objective: 12/29/18 10:50 Vital Signs 12/29/18 12/29/18 12/29/18 03:30 07:04 09:13 Temperature 97.5 F L 98.1 F Pulse Rate 70 63 Respiratory 18 18 16 Rate Blood Pressure 100/60 159/62 Assessment: 12/29/18 10:50 AOX3, in no acute respiratory distress. Full ROM, ambulating in the unit. Withdrawal symptoms. Plan: continue detox.
[2018-12-29] MEDS: THIAMINE HCL 100 MG TABLET (FP) PO SCH (22:22)
[2018-12-29] MEDS: traZODone HCL 100 MG TABLET (FP) PO SCH (22:22)
[2018-12-30] MEDS ORDERED: chlordiazePOXIDE HCL 10 MG CAPSULE PO SCH (05:00)
[2018-12-30] MEDS: NICOTINE 21 MG/24 HOURS TOPICAL PATCH TD SCH (10:24)
[2018-12-30] MEDS: FLUoxetine HCL 20 MG CAPSULE (FP) PO SCH (10:24)
[2018-12-30] MEDS: PRENATAL VITAMINS W/ FOLIC ACID TABLET (FP) PO SCH (10:24)
--- NOTE | 2018-12-30 10:46 | PN ---
BHS CIWA - CIWA Score Nausea/Vomitin-No Nausea/No Vomiting Muscle Tremors: 1-None Visible, but [place] Anxiety: 1-Mildly Anxious Agitation: 2 Paroxysmal Sweats: No Perspiration Orientation: 0-Oriented Tacttile Disturbances: 0-None Auditory Disturbances: 0-None Visual Disturbances: 0-None Headache: 0-None Present CIWA-Ar Total Score: 4 BHS Progress Note (SOAP) Subjective: Patient states feeling better but still has mild anxiety and shakes. Objective: 12/30/18 10:40 Vital Signs Temperature 98.1 F 12/30/18 09:30 Pulse Rate 81 12/30/18 09:30 Respiratory Rate 18 12/30/18 09:30 Blood Pressure 100/72 12/30/18 09:30 O2 Sat by Pulse Oximetry (%) PE alert and oriented x 3 skin warm and dry +perrla, eoms intact bl neck supple, no jvd ext full rom, amb ad justin, no visible tremors Assessment: 12/30/18 10:47 ETOH withdrawal sx Plan: continue detox encourage oral fluids for d/c in am
--- NOTE | 2018-12-30 13:48 | DS ---
[facility] Detox Discharge Summary Admission Date: 12/26/18 Discharge Date: 12/30/18 - History Present History: Alcohol Dependence - Physical Exam Results Vital Signs: Vital Signs Temperature 98.1 F 12/30/18 09:30 Pulse Rate 81 12/30/18 09:30 Respiratory Rate 18 12/30/18 09:30 Blood Pressure 100/72 12/30/18 09:30 O2 Sat by Pulse Oximetry (%) Pertinent Admission Physical Exam Findings: Patient reports feeling well and would like to be discharged now. Patient is medically stable and denies SI/HI. Encouraged to follow up with AA and group meetings and to make appointment with PCP within one week of discharge. - Treatment Hospital Course: Detox Protocol Followed, Detoxed Safely, Responded well, Discharged Condition Good - Medication Discharge Medications: Ambulatory Orders NK [No Known Home Medication] 12/08/18
[2018-12-30 14:58] VITALS: BP 115/76; PULSE 79; TEMP 98.2
[2018-12-31] MEDS ORDERED: chlordiazePOXIDE HCL 10 MG CAPSULE PO ONE (05:00)
== END 2018-12-30 14:08 | disposition home or self-care (01) | DRG 775 ==
LOC: YASAS 10:56 → Y6N 13:51
PROVIDERS: ADMIT Surgery; ATTEND Surgery
PROC: HZ2ZZZZ Detoxification Services for Substance Abuse Treatment (ICD-10-PCS; principal; 2018-12-26)
DX: F10.230 Alcohol dependence with withdrawal, uncomplicated (principal); F10.220 Alcohol dependence with intoxication, uncomplicated; F17.210 Nicotine dependence, cigarettes, uncomplicated; F10.282 Alcohol dependence with alcohol-induced sleep disorder; F10.24 Alcohol dependence with alcohol-induced mood disorder; F33.9 Major depressive disorder, recurrent, unspecified; J45.909 Unspecified asthma, uncomplicated; Z88.0 Allergy status to penicillin; Z91.013 Allergy to seafood; Z88.8 Allergy status to other drugs, medicaments and biological substances

== ENCOUNTER 2019-01-04 10:21 | Inpatient (IN) | payer OTHER ==
[2019-01-04 11:29] VITALS: BMI 23.4
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
[2019-01-04] MEDS ORDERED: IBUPROFEN 400 MG TABLET (FP) PO PRN (12:17)
[2019-01-04] MEDS ORDERED: MAGNESIUM CITRATE 300 ML BOTTLE PO PRN (12:17)
[2019-01-04] MEDS ORDERED: hydrOXYzine PAMOATE 25 MG CAPSULE (FP) PO PRN (12:17)
[2019-01-04] MEDS ORDERED: ACETAMINOPHEN 325 MG TABLET (FP) PO PRN ×2 (12:17)
[2019-01-04] MEDS ORDERED: MELATONIN 5 MG TABLETS PO PRN (12:17)
[2019-01-04] MEDS ORDERED: MAG HYDROX/AL HYDROX/SIMETH 30 ML UNIT-DOSE CUP PO PRN (12:17)
[2019-01-04] MEDS ORDERED: MENTHOL/PHENOL 1 EACH UD MM PRN (12:17)
[2019-01-04] MEDS ORDERED: MAGNESIUM HYDROX 2400MG/30ML ORAL SUSPENSION 30 ML CUP PO PRN (12:17)
[2019-01-04] MEDS ORDERED: BISMUTH SUBSALICYLATE 524 MG/30 ML UD PO PRN (12:17)
[2019-01-04] MEDS ORDERED: diazePAM 5 MG TABLET PO PRN (12:18)
[2019-01-04] MEDS: diazePAM 5 MG TABLET PO SCH ×2 (14:20→22:02)
[2019-01-04] MEDS: THIAMINE HCL 100 MG TABLET (FP) PO SCH (22:02)
[2019-01-05] MEDS: diazePAM 5 MG TABLET PO SCH ×3 (05:37→18:10)
[2019-01-05] MEDS ORDERED: PRENATAL VITAMINS W/ FOLIC ACID TABLET (FP) PO SCH (10:00)
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
--- NOTE | 2019-01-05 16:47 | PN ---
S CIWA - CIWA Score Nausea/Vomitin-No Nausea/No Vomiting Muscle Tremors: None Anxiety: 0-No Anxiety, at Ease Agitation: 1-Slight > Activity Paroxysmal Sweats: No Perspiration Orientation: 0-Oriented Tacttile Disturbances: 0-None Auditory Disturbances: 0-None Visual Disturbances: 0-None Headache: 0-None Present CIWA-Ar Total Score: 1 BHS Progress Note (SOAP) Subjective: Patient denies current Withdrawal / Detox symptoms and reports that he feels well overall at this time. Objective: PATIENT A & O X 3, OBSERVED AMBULATING ON DETOX UNIT UNASSISTED. IN NO ACUTE DISTRESS. 01/05/19 16:44 Vital Signs Temperature 98.9 F 01/05/19 13:38 Pulse Rate 72 01/05/19 13:38 Respiratory Rate 18 01/05/19 13:38 Blood Pressure 113/73 01/05/19 13:38 O2 Sat by Pulse Oximetry (%) RESULTS OF ADMISSION LABS FROM 12/22/2018 NOTED. 01/05/19 16:44 Assessment: 01/05/19 16:47 ALCOHOL WITHDRAWAL. 01/05/19 16:47 Plan: CONTINUE DETOX. PATIENT SCHEDULED FOR D/C FROM DETOX UNIT TOMORROW.
[2019-01-05] MEDS ORDERED: traZODone HCL 50 MG TABLET (FP) PO SCH (22:00)
[2019-01-05] MEDS: THIAMINE HCL 100 MG TABLET (FP) PO SCH (22:10)
[2019-01-06] MEDS ORDERED: diazePAM 5 MG TABLET PO ONE (06:00)
[2019-01-06 06:30] VITALS: BP 99/55; PULSE 56; TEMP 97.7
[2019-01-06] MEDS ORDERED: FLUoxetine HCL 20 MG CAPSULE (FP) PO SCH (10:00)
--- NOTE | 2019-01-06 13:39 | DS ---
[facility] Detox Discharge Summary Admission Date: 01/04/19 Discharge Date: 01/06/19 - History Present History: Alcohol Dependence Additional Comments: did wel with valium detox regimen no complication throughout the detox stay patient is alert oriented x 3 speech clearly denies dizziness no shortness of breath steady gait aftercare [place] Pertinent Past History: discuss nicotine related asthma episode and respiratory destress - Physical Exam Results Vital Signs: Vital Signs Temperature 97.7 F 01/06/19 06:29 Pulse Rate 56 L 01/06/19 06:29 Respiratory Rate 18 01/06/19 06:29 Blood Pressure 99/55 L 01/06/19 06:29 O2 Sat by Pulse Oximetry (%) Pertinent Admission Physical Exam Findings: alcohol withdrawal sx lab see 12/22/18 - Treatment Hospital Course: Detox Protocol Followed, Detoxed Safely, Responded well, Discharged Condition Good, Rehab Referral Accepted Patient has Accepted a Rehab Referral to: [facility] - Medication Discharge Medications: Ambulatory Orders NK [No Known Home Medication] 12/08/18 - Diagnosis (1) Alcohol dependence with uncomplicated intoxication Status: Acute (2) Asthma Status: Chronic Qualifiers: Asthma severity: mild Asthma persistence: intermittent Asthma complication type: with status asthmaticus Qualified Code(s): J45.22 - Mild intermittent asthma with status asthmaticus (3) Nicotine dependence Status: Acute Qualifiers: Nicotine product type: cigarettes Substance use status: in withdrawal Qualified Code(s): F17.213 - Nicotine dependence, cigarettes, with withdrawal - AMA Did Patient Leave Against Medical Advice: No CIWA Score - CIWA Score Nausea/Vomitin-No Nausea/No Vomiting Muscle Tremors: None Anxiety: 1-Mildly Anxious Agitation: 0-Normal Activity Paroxysmal Sweats: No Perspiration Orientation: 0-Oriented Tacttile Disturbances: 0-None Auditory Disturbances: 0-None Visual Disturbances: 0-None Headache: 0-None Present CIWA-Ar Total Score: 1
== END 2019-01-06 08:30 | disposition home or self-care (01) | DRG 775 ==
LOC: YASAS 10:21 → Y3N 12:28
PROVIDERS: ADMIT Surgery; ATTEND Surgery
PROC: HZ2ZZZZ Detoxification Services for Substance Abuse Treatment (ICD-10-PCS; principal; 2019-01-04)
DX: F10.230 Alcohol dependence with withdrawal, uncomplicated (principal); F13.10 Sedative, hypnotic or anxiolytic abuse, uncomplicated; F17.213 Nicotine dependence, cigarettes, with withdrawal; F10.24 Alcohol dependence with alcohol-induced mood disorder; F33.9 Major depressive disorder, recurrent, unspecified; J45.22 Mild intermittent asthma with status asthmaticus; G47.00 Insomnia, unspecified; Z88.0 Allergy status to penicillin; Z91.013 Allergy to seafood; Z91.018 Allergy to other foods; Z91.5 Personal history of self-harm

== ENCOUNTER 2019-01-21 16:36 | Emergency (ER) | payer OTHER ==
--- NOTE | 2019-01-21 16:59 | PDOC ---
History of Present Illness - General Stated Complaint: INTOX Time Seen by Provider: 01/21/19 16:58 Past History - Past Medical History Allergies/Adverse Reactions: Allergies Allergy/AdvReac Type Severity Reaction Status Date / Time doxycycline Allergy Verified 01/21/19 17:05 Fish Containing Products Allergy Verified 01/21/19 17:05 onion Allergy Verified 01/21/19 17:05 Penicillins Allergy Verified 01/21/19 17:05 tomato Allergy Hives Verified 01/21/19 17:05 Home Medications: Ambulatory Orders NK [No Known Home Medication] 12/08/18 Anemia: No Asthma: Yes Cancer: No Cardiac Disorders: No CVA: No COPD: No CHF: No Diabetes: No GI Disorders: No Disorders: No HTN: No Hypercholesterolemia: No Kidney Stones: No Liver Disease: No Seizures: No Thyroid Disease: No - Surgical History Abdominal Surgery: No Appendectomy: No Cardiac Surgery: No Cholecystectomy: No Lung Surgery: No Neurologic Surgery: No Orthopedic Surgery: Yes (right ankle surgery 2016) - Reproductive History Testicular Surgery: No - Immunization History Immunization Up to Date: (unknown) - Psycho Social/Smoking Cessation Hx Smoking History: Current some day smoker Have you smoked in the past 12 months: Yes Number of Cigarettes Smoked Daily: 20 'Breaking Loose' booklet given: 01/03/19 Hx Alcohol Use: No Drug/Substance Use Hx: No Substance Use Type: Alcohol, Cocaine Hx Substance Use Treatment: Yes ED Treatment Course - LABORATORY CBC & Chemistry Diagram: 01/21/19 20:15 01/21/19 20:15 Medical Decision Making - Medical Decision Making HPI: 43yo undomiciled M with PMH of asthma, polysubstance abuse, depression, schizophrenia presenting for detox: "I drank too much." Patient states he has been in detox for alcohol three times previously, most recently discharged from [facility] on 01/06/19. Admits to drinking twelve 24oz beers today as well as portions of two half pints of vodka. Last drink was two hours prior to arrival. He reports falling back twice and hitting his head. Was administered vivitrol last week. Admits to occasional marijuana use. Stopped using other recreational substances about 17 months ago. Never had an alcohol withdrawal seizure. No fevers, chills, chest pain, or shortness of breath. ROS: Constitutional: no fever, no chills HEENT: no throat pain, no dysphagia Cardiovascular: no chest pain, no palpitations Respiratory: no cough, no shortness of breath Gastrointestinal: no abdominal pain, no vomiting Genitourinary: no dysuria, no hematuria Musculoskeletal: no myalgia, no arthralgia Skin: no rash, no itching Neurologic: +headache, +falls PE: General: Awake, alert, and fully oriented, mildly slurred speech Head: No signs of trauma Eyes: EOMI, sclera anicteric ENT: Moist mucus membranes Neck: Normal ROM, supple Lungs: Lungs clear, Normal breath sounds Cardio: Regular rhythm, S1 and S2 present Abdomen: Soft, nontender. No guarding, no rebound, no masses Extremities: Normal range of motion, Distal pulses present SKIN: Warm, Dry, normal turgor Neurologic: Cranial nerves II through XII intact. Normal sensation, strength, coordination. Deferred gait exam. ED Course/MDM: DDX including but not limited to brain bleed, c-spine fracture, intoxication CT Head CT Cspine Awaiting clinical sobriety Patient can present himself to [facility] for detox 01/21/19 16:59 Dr. Pearson spoke with radiology who states the brain abnormality seen on patient's CT scan is normal anatomical variant. 01/21/19 18:47 CT head, as read by radiology: "No CT evidence of intracranial injury or calvarial fracture. There is no extra-axial fluid collection. Involutional changes are noted which are probably somewhat more prominent than would be expected for the patient's chronologic age. No obstructive hydrocephalus. A dominant right transverse sinus is noted consistent with normal variation. Improved multifocal paranasal sinus mucosal thickening is seen. Impression: No CT evidence of acute intracranial pathology. The intracranial structures demonstrate no definite interval change comparison to a prior CT exam of 2018. " CT c-spine, as read by radiology: "Multiplanar imaging was performed. No fracture or posttraumatic malalignment is seen. Moderate C5-C6 degenerative disc space narrowing is noted. At the C5-C6 level note is made of degenerative central canal stenosis which is probably moderate to marked. The perivertebral soft tissues demonstrate no obvious abnormality. Note is again made of several nonspecific mildly enlarged bilateral cervical, submandibular triangle and posterior triangle lymph nodes. There is also again visualization of mild soft tissue prominence within the posterior superior nasopharynx. ENT consultation may be considered. Impression: No fracture is identified. Moderate to marked C5- C6 central canal stenosis. Mildly enlarged bilateral nonspecific lymph nodes as noted above. Overall there has been no definite interval change in comparison to a prior CT exam of 12/17/2018. " Patient signed out to Dr. Acuna and night team 01/21/19 19:11 Discharge - Discharge Information Problems reviewed: Yes Clinical Impression/Diagnosis: Alcohol dependence with uncomplicated intoxication Condition: Improved Disposition: HOME - Follow up/Referral - Patient Discharge Instructions Patient Printed Discharge Instructions: DI for Alcohol Abuse Additional Instructions: Present to [facility] at 8am tomorrow [place] [address] Follow-up with you primary care physician in 5-7 days to discuss this ED visit and to further evaluate your symptoms. Your care is not complete until you do so. Call and make an appointment. Immediate medical attention is required if you have: a seizure or develop tremors or hallucinations and do not have access to alcohol, vomiting, chest pain, shortness of breath, abdominal pain, thoughts of self-harm, or an other new or concerning symptoms. If you think you are having an emergency, call for emergency medical services or present to the emergency department right away. - Post Discharge Activity
[2019-01-21 17:05] VITALS: TEMP 98.2; BMI 27.3
--- NOTE | 2019-01-21 18:46 | PDOC ---
Attending Attestation - Resident Resident Name: HeidiCatTabitha - ED Attending Attestation I have performed the following: I have examined & evaluated the patient, The case was reviewed & discussed with the resident, I agree w/resident's findings & plan, Exceptions are as noted - HPI HPI: 01/21/19 18:44 43-year-old male history of schizoaffective disorder alcohol abuse here today with intoxication with a witnessed fall backwards. Patient states he was drinking denies other drug use presents with discharge papers from a recent hospitalization at [facility] discharged on 930 patient is complaining of posterior head pain denies any other body aches or pains. Is acutely intoxicated and very poor historian drowsy but arousable - Physicial Exam PE: 01/21/19 18:45 Patient is drowsy but arousable pupils are equally round and reactive head is atraumatic lungs are clear bilaterally heart is regular without murmurs rubs or gallops abdomen is soft nontender extremities are warm and well-perfused patient 's strength is 5 out of 5 all 4 extremities speech is slurred - Medical Decision Making 01/21/19 18:45 , 43-year-old male with acute intoxication history of schizoaffective disorder status post fall. Differential includes intracranial hypertension cranial bleed intoxication or other drug plan CBC lites alcohol level CT head and cervical spine CT head reviewed with Dr. Delatorre felt to have a posterior prominent sinus transverse sinus no acute bleed or traumatic injury. CT cervical spine is pending
--- NOTE | 2019-01-21 19:19 | PDOC ---
*Physical Exam - Vital Signs Last Vital Signs Temp Pulse Resp BP Pulse Ox 98.2 F 98 H 18 123/87 98 01/21/19 17:00 01/21/19 17:00 01/21/19 17:00 01/21/19 17:00 01/21/19 17:00 ED Treatment Course - LABORATORY CBC & Chemistry Diagram: 01/21/19 20:15 01/21/19 20:15 Medical Decision Making - Medical Decision Making Pt received as sign out Upon re-evaluation pt was noted to have clear speech, stable gait, and no acute complaints Plan for D/C w/ PCP f/u Discharge instructions and return precautions given Pt in agreement and verbalized understanding Dispo: home 01/22/19 06:26 Discharge - Discharge Information Problems reviewed: Yes Clinical Impression/Diagnosis: Alcohol dependence with uncomplicated intoxication Condition: Improved Disposition: HOME - Admission No - Follow up/Referral - Patient Discharge Instructions Patient Printed Discharge Instructions: DI for Alcohol Abuse Additional Instructions: Present to [facility] at 8am tomorrow [place] [address] Follow-up with you primary care physician in 5-7 days to discuss this ED visit and to further evaluate your symptoms. Your care is not complete until you do so. Call and make an appointment. Immediate medical attention is required if you have: a seizure or develop tremors or hallucinations and do not have access to alcohol, vomiting, chest pain, shortness of breath, abdominal pain, thoughts of self-harm, or an other new or concerning symptoms. If you think you are having an emergency, call for emergency medical services or present to the emergency department right away. - Post Discharge Activity
[2019-01-21 21:07] LABS: BASO % 0.8 % (0-2.0); EOS % 1.6 % (0-4.5); HEMATOCRIT 43.1 % (35.4-49); HEMOGLOBIN 14.1 GM/dL (11.7-16.9); MCH 29.6 pg (25.7-33.7); MCHC 32.7 g/dl (32.0-35.9); MEAN CELL VOLUME 90.5 fl (80-96); MEAN PLT VOLUME 7.8 fl (7.5-11.1); MONO % 5.2 % (3.8-10.2); NEUT % 82.4 % (42.8-82.8); PLATELET COUNT 270 K/MM3 (134-434); RBC 4.76 M/mm3 (4.00-5.60); WHITE BLOOD COUNT 16.9 K/mm3 (4.0-10.0)
[2019-01-21 21:34] LABS: ALBUMIN 3.8 g/dl (3.4-5.0); BILIRUBIN,TOTAL 0.3 mg/dL (0.2-1); BLOOD UREA NITROGEN 6.3 mg/dL (7-18); CALCIUM 8.4 mg/dL (8.5-10.1); CREATININE 0.7 mg/dL (0.55-1.3); POTASSIUM 3.9 mmol/L (3.5-5.1); TOT PROT 7.5 g/dl (6.4-8.2)
[2019-01-22 04:53] VITALS: BP 120/70; PULSE 80
== END 2019-01-22 04:53 | disposition home or self-care (01) ==
LOC: JER 16:36
DX: F10.220 Alcohol dependence with intoxication, uncomplicated (principal); Y90.7 Blood alcohol level of 200-239 mg/100 ml; R51 Headache; W19.XXXA Unspecified fall, initial encounter; Y93.89 Activity, other specified; Y92.89 Other specified places as the place of occurrence of the external cause; J45.909 Unspecified asthma, uncomplicated; Y99.8 Other external cause status; F25.9 Schizoaffective disorder, unspecified; F32.9 Major depressive disorder, single episode, unspecified; F17.200 Nicotine dependence, unspecified, uncomplicated; Z88.0 Allergy status to penicillin; Z88.1 Allergy status to other antibiotic agents; Z91.013 Allergy to seafood; Z91.018 Allergy to other foods
CPT/HCPCS: 36415; 70450-TC; 72125-TC; 80053; 80307; 85025; 99283-25

== ENCOUNTER 2019-04-05 20:36 | Inpatient (IN) | payer SELFPAY ==
[2019-04-05 21:18] VITALS: BMI 22.9
--- NOTE | 2019-04-05 21:40 | HP ---
CIWA Score Nausea/Vomitin Muscle Tremors: 3 Anxiety: 4-Mod. Anxious/Guarded Agitation: 2 Paroxysmal Sweats: 1-Minimal Palms Moist Orientation: 0-Oriented Tacttile Disturbances: 0-None Auditory Disturbances: 0-None Visual Disturbances: 0-None Headache: 4-Moderately Severe CIWA-Ar Total Score: 17 - Admission Criteria OASAS Guidelines: Admission for Medically Managed Detox: Requires at least one of the followin. CIWA greater than 12 2. Seizures within the past 24 hours 3. Delirium tremens within the past 24 hours 4. Hallucinations within the past 24 hours 5. Acute intervention needed for co occurring medical disorder 6. Acute intervention needed for co occurring psychiatric disorder 7. Severe withdrawal that cannot be handled at a lower level of care (continued vomiting, continued diarrhea, abnormal vital signs) requiring intravenous medication and/or fluids 8. Admitting History and Physical - Smoking History Smoking history: Current some day smoker Have you smoked in the past 12 months: Yes Aproximately how many cigarettes per day: 20 - Alcohol/Substance Use Hx Alcohol Use: No Admission ROS [facility] Chief Complaint: Alcohol withdrawal symptoms Allergies/Adverse Reactions: Allergies Allergy/AdvReac Type Severity Reaction Status Date / Time doxycycline Allergy Verified 04/05/19 21:09 Fish Containing Products Allergy Verified 04/05/19 21:09 onion Allergy Verified 04/05/19 21:09 Penicillins Allergy Verified 04/05/19 21:09 tomato Allergy Hives Verified 04/05/19 21:09 History of Present Illness: 43 years old male with a long history of alcohol dependence (since age 26) is seeking admission to detox. Patient has been in multiple prior inpatient detox, last for the period 01/04/2019 - 01/06/2019. He reports 20+ years of sobriety while in senior care. He states that he has been in and out of senior care all his life. He has medical history of asthma and Psych. history of schizophrenia, depression and anxiety. He reports about 5 suicide attempts, last in 2019. He denies suicidal ideation at this time. He lives with his in an apartment and is unemployed. Exam Limitations: No Limitations - Ebola screening Have you traveled outside of the country in the last 21 days: No Have you had contact with anyone from an Ebola affected area: No Do you have a fever: No - Review of Systems Constitutional: Chills, Loss of Appetite, Malaise, Night Sweats, Changes in sleep EENT: reports: No Symptoms Reported Respiratory: reports: No Symptoms reported Cardiac: reports: No Symptoms Reported GI: reports: Diarrhea (x 5), Poor Appetite, Poor Fluid Intake, Abdominal cramping : reports: No Symptoms Reported Musculoskeletal: reports: Back Pain (lower) Integumentary: reports: Dryness, Flushing Neuro: reports: Headache, Tremors Endocrine: reports: No Symptoms Reported Hematology: reports: No Symptoms Reported Psychiatric: reports: Mood/Affect Appropiate, Orientated x3, Anxious, Depressed Other Systems: Reviewed and Negative Patient History - Patient Medical History Hx Anemia: No Hx Asthma: Yes (Not on medication) Hx Chronic Obstructive Pulmonary Disease (COPD): No Hx Cancer: No Hx Cardiac Disorders: No Hx Congestive Heart Failure: No Hx Hypertension: No Hx Hypercholesterolemia: No Hx Pacemaker: No HX Cerebrovascular Accident: No Hx Seizures: No Hx Diabetes: No Hx Gastrointestinal Disorders: No Hx Liver Disease: No Hx Genitourinary Disorders: No Hx Sexually Transmitted Disorders: No Hx Renal Disease (ESRD): No Hx Thyroid Disease: No Hx Human Immunodeficiency Virus (HIV): No Hx Hepatitis C: No Hx Depression: Yes (Not on medication) Hx Suicide Attempt: Yes (Attempted suicide x 5. Denies suicidal ideation at this time) Hx Bipolar Disorder: No Hx Schizophrenia: Yes Other Medical History: Anxiety - Not on medication - Patient Surgical History Past Surgical History: Yes Hx Neurologic Surgery: No Hx Cataract Extraction: No Hx Cardiac Surgery: No Hx Lung Surgery: No Hx Breast Surgery: No Hx Breast Biopsy: No Hx Abdominal Surgery: No Hx Appendectomy: No Hx Cholecystectomy: No Hx Genitourinary Surgery: No Hx Section: No Hx Orthopedic Surgery: Yes (right ankle surgery 2016) Other Surgical History: right groin hernia sx 2002 Anesthesia Reaction: No - PPD History Previous Implant?: Yes Documented Results: Negative w/proof Implanted On Prior R Admission?: Yes Date: 12/20/17 Results: 0 mm PPD to be Administered?: Yes - Reproductive History Patient is a Female of Child Bearing Age (11 -55 yrs old): No (male) - Smoking Cessation Smoking history: Current every day smoker Have you smoked in the past 12 months: Yes Aproximately how many cigarettes per day: 5 Hx Chewing Tobacco Use: No Initiated information on smoking cessation: Yes 'Breaking Loose' booklet given: 04/05/19 - Substance & Tx. History Hx Alcohol Use: Yes Hx Substance Use: No Substance Use Type: Alcohol Hx Substance Use Treatment: Yes ([facility], [facility]) - Substances abused Alcohol Other (specify): beer Substance route: Oral Frequency: Daily Amount used: 150 ounces of beer/ 10 of 24 cans. Age of first use: 8 Date of last use: 04/05/19 Admission Physical Exam [facility] - Vital Signs Vital Signs: Vital Signs - 24 hr 04/05/19 21:08 Temperature 97.2 F L Pulse Rate 92 H Respiratory 16 Rate Blood Pressure 126/77 - Physical General Appearance: Yes: Moderate Distress, Alcohol on Breath, Intoxicated, Tremorous, Irritable, Sweating, Anxious HEENTM: Yes: Within Normal Limits Respiratory: Yes: Lungs Clear, Normal Breath Sounds, No Respiratory Distress Neck: Yes: Supple Breast: Yes: Breast Exam Deferred Cardiology: Yes: Tachycardia Abdominal: Yes: Normal Bowel Sounds Genitourinary: Yes: Within Normal Limits Musculoskeletal: Yes: Back pain (low) Extremities: Yes: Tremors Neurological: Yes: Within Normal Limits, Fully Oriented, Normal Mood/Affect Integumentary: Yes: Warm Lymphatic: Yes: Within Normal Limits - Diagnostic (1) Anxiety Current Visit: Yes Status: Chronic (2) Alcohol dependence with uncomplicated intoxication Current Visit: Yes Status: Acute (3) Nicotine dependence Current Visit: Yes Status: Chronic Qualifiers: Nicotine product type: cigarettes Substance use status: uncomplicated Qualified Code(s): F17.210 - Nicotine dependence, cigarettes, uncomplicated (4) Asthma Current Visit: Yes Status: Chronic Qualifiers: Asthma severity: mild Asthma persistence: intermittent Asthma complication type: with status asthmaticus Qualified Code(s): J45.22 - Mild intermittent asthma with status asthmaticus (5) Depression Current Visit: Yes Status: Chronic Qualifiers: Depression Type: unspecified Qualified Code(s): F32.9 - Major depressive disorder, single episode, unspecified Cleared for Admission [facility] - Detox or Rehab [facility] Level of Care: Medically Managed Detox Regimen/Protocol: Librium Breathalyzer - Breathalyzer Breathalyzer: 0.220 Urine Drug Screen - Test Device Lot number: [id number] Expiration date: 09/14/20 - Control Is test valid?: Yes - Results Drug screen NEGATIVE: No Urine drug screen results: BZO-Benzodiazepines Inpatient Rehab Admission - Rehab Decision to Admit Inpatient rehab admission?: No
[2019-04-05] MEDS ORDERED: MAG HYDROX/AL HYDROX/SIMETH 30 ML UNIT-DOSE CUP PO PRN (21:59)
[2019-04-05] MEDS ORDERED: MAGNESIUM HYDROX 2400MG/30ML ORAL SUSPENSION 30 ML CUP PO PRN (21:59)
[2019-04-05] MEDS ORDERED: hydrOXYzine PAMOATE 25 MG CAPSULE (FP) PO PRN (21:59)
[2019-04-05] MEDS ORDERED: MAGNESIUM CITRATE 300 ML BOTTLE PO PRN (21:59)
[2019-04-05] MEDS ORDERED: METHOCARBAMOL 500 MG TABLET PO PRN (21:59)
[2019-04-05] MEDS ORDERED: MELATONIN 5 MG TABLETS PO PRN (21:59)
[2019-04-05] MEDS ORDERED: ACETAMINOPHEN 325 MG TABLET (FP) PO PRN ×2 (21:59)
[2019-04-05] MEDS ORDERED: NICOTINE POLACRILEX 2 MG GUM BUC PRN (21:59)
[2019-04-05] MEDS ORDERED: chlordiazePOXIDE HCL 25 MG CAPSULE PO PRN (21:59)
[2019-04-05] MEDS ORDERED: MENTHOL/PHENOL 1 EACH UD MM PRN (21:59)
[2019-04-05] MEDS ORDERED: BISMUTH SUBSALICYLATE 524 MG/30 ML UD PO PRN (21:59)
[2019-04-05] MEDS ORDERED: IBUPROFEN 400 MG TABLET (FP) PO PRN (21:59)
[2019-04-05] MEDS: chlordiazePOXIDE HCL 25 MG CAPSULE PO SCH (23:30)
[2019-04-05] MEDS: THIAMINE HCL 100 MG TABLET (FP) PO SCH (23:30)
[2019-04-06] MEDS: chlordiazePOXIDE HCL 25 MG CAPSULE PO SCH ×4 (05:39→22:23)
[2019-04-06 09:29] LABS: HEMATOCRIT 43.1 % (35.4-49); HEMOGLOBIN 14.2 GM/dL (11.7-16.9); MCH 29.8 pg (25.7-33.7); MEAN CELL VOLUME 90.2 fl (80-96); MEAN PLT VOLUME 8.2 fl (7.5-11.1); PLATELET COUNT 266 K/MM3 (134-434); RBC 4.78 M/mm3 (4.00-5.60); RDW 14.4 % (11.9-15.9); WHITE BLOOD COUNT 8.3 K/mm3 (4.0-10.0)
[2019-04-06] MEDS: PRENATAL VITAMINS W/ FOLIC ACID TABLET (FP) PO SCH (10:19)
[2019-04-06] MEDS: NICOTINE 14 MG/24 HOURS TOPICAL PATCH TD SCH (10:20)
[2019-04-06 10:56] LABS: BILIRUBIN,TOTAL 0.1 mg/dL (0.2-1); BLOOD UREA NITROGEN 7.7 mg/dL (7-18); CALCIUM 9.1 mg/dL (8.5-10.1); CREATININE 0.9 mg/dL (0.55-1.3); POTASSIUM 3.8 mmol/L (3.5-5.1); TOT PROT 7.6 g/dl (6.4-8.2)
--- NOTE | 2019-04-06 12:15 | PN ---
S CIWA - CIWA Score Nausea/Vomitin-No Nausea/No Vomiting Muscle Tremors: None Anxiety: 3 Agitation: 0-Normal Activity Paroxysmal Sweats: 3 Orientation: 0-Oriented Tacttile Disturbances: 0-None Auditory Disturbances: 0-None Visual Disturbances: 0-None Headache: 2-Mild CIWA-Ar Total Score: 8 [facility] Progress Note (SOAP) Subjective: c/o sweats, headache, and anxiety. Objective: 04/06/19 12:15 Vital Signs 04/06/19 04/06/19 06:41 09:26 Temperature 97 F L 95.8 F L Pulse Rate 81 82 Respiratory 18 18 Rate Blood Pressure 108/61 126/85 Laboratory Last Values WBC 8.3 K/mm3 (4.0-10.0) 04/06/19 07:40 RBC 4.78 M/mm3 (4.00-5.60) 04/06/19 07:40 Hgb 14.2 GM/dL (11.7-16.9) 04/06/19 07:40 Hct 43.1 % (35.4-49) 04/06/19 07:40 MCV 90.2 fl (80-96) 04/06/19 07:40 MCH 29.8 pg (25.7-33.7) 04/06/19 07:40 MCHC 33.0 g/dl (32.0-35.9) 04/06/19 07:40 RDW 14.4 % (11.9-15.9) 04/06/19 07:40 Plt Count 266 K/MM3 (134-434) 04/06/19 07:40 MPV 8.2 fl (7.5-11.1) 04/06/19 07:40 Sodium 142 mmol/L (136-145) 04/06/19 07:40 Potassium 3.8 mmol/L (3.5-5.1) 04/06/19 07:40 Chloride 106 mmol/L (98-107) 04/06/19 07:40 Carbon Dioxide 30 mmol/L (21-32) 04/06/19 07:40 Anion Gap 7 MMOL/L (8-16) L 04/06/19 07:40 BUN 7.7 mg/dL (7-18) 04/06/19 07:40 Creatinine 0.9 mg/dL (0.55-1.3) 04/06/19 07:40 Est GFR (CKD-EPI)AfAm 120.81 04/06/19 07:40 Est GFR (CKD-EPI)NonAf 104.24 04/06/19 07:40 Random Glucose 90 mg/dL (74-106) 04/06/19 07:40 Calcium 9.1 mg/dL (8.5-10.1) 04/06/19 07:40 Total Bilirubin 0.1 mg/dL (0.2-1) L 04/06/19 07:40 AST 62 U/L (15-37) H 04/06/19 07:40 ALT 58 U/L (13-61) 04/06/19 07:40 Alkaline Phosphatase 71 U/L (45-117) 04/06/19 07:40 Total Protein 7.6 g/dl (6.4-8.2) 04/06/19 07:40 Albumin 4.0 g/dl (3.4-5.0) 04/06/19 07:40 Labs noted. Assessment: 04/06/19 12:15 AOX3, in no respiratory distress. Full ROM, ambulating in the unit. Withdrawal symptoms. Plan: continue detox.
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
--- NOTE | 2019-04-06 14:36 | EKG ---
Test Reason : Blood Pressure : / mmHG Vent. Rate : 068 BPM Atrial Rate : 068 BPM P-R Int : 154 ms QRS Dur : 096 ms QT Int : 410 ms P-R-T Axes : 065 029 045 degrees QTc Int : 435 ms NORMAL SINUS RHYTHM NORMAL ECG WHEN COMPARED WITH ECG OF 22-DEC-2018 02:24, NO SIGNIFICANT CHANGE WAS FOUND Confirmed by MINO SANTILLAN MD ([id number]) on 04/06/2019 2:35:35 PM Referred By: Confirmed By:MINO SANTILLAN MD
[2019-04-06] MEDS: traZODone HCL 100 MG TABLET (FP) PO SCH (22:23)
[2019-04-06] MEDS: THIAMINE HCL 100 MG TABLET (FP) PO SCH (22:23)
[2019-04-07] MEDS: chlordiazePOXIDE HCL 25 MG CAPSULE PO SCH ×4 (05:49→22:22)
[2019-04-07] MEDS: FLUoxetine HCL 20 MG CAPSULE (FP) PO SCH (10:24)
[2019-04-07] MEDS: PRENATAL VITAMINS W/ FOLIC ACID TABLET (FP) PO SCH (10:24)
[2019-04-07] MEDS: NICOTINE 14 MG/24 HOURS TOPICAL PATCH TD SCH (10:25)
--- NOTE | 2019-04-07 12:11 | PN ---
[facility] CIWA - CIWA Score Nausea/Vomitin-Mild Nausea/No Vomiting Muscle Tremors: 3 Anxiety: 3 Agitation: 2 Paroxysmal Sweats: 1-Minimal Palms Moist Orientation: 0-Oriented Tacttile Disturbances: 1-Very Mild Itch/Numbness Auditory Disturbances: 0-None Visual Disturbances: 0-None Headache: 1-Very Mild CIWA-Ar Total Score: 12 S Progress Note (SOAP) Subjective: 43 years old male admitted on 04/05/19 for alcohol withdrawal sx management treating with librium detox regimen social with peers in day room encourage to attend groups and meetings Objective: 04/07/19 12:12 Vital Signs Temperature 97.4 F L 04/07/19 09:31 Pulse Rate 67 04/07/19 09:31 Respiratory Rate 18 04/07/19 09:31 Blood Pressure 99/61 04/07/19 09:31 O2 Sat by Pulse Oximetry (%) Laboratory Last Values WBC 8.3 K/mm3 (4.0-10.0) 04/06/19 07:40 RBC 4.78 M/mm3 (4.00-5.60) 04/06/19 07:40 Hgb 14.2 GM/dL (11.7-16.9) 04/06/19 07:40 Hct 43.1 % (35.4-49) 04/06/19 07:40 MCV 90.2 fl (80-96) 04/06/19 07:40 MCH 29.8 pg (25.7-33.7) 04/06/19 07:40 MCHC 33.0 g/dl (32.0-35.9) 04/06/19 07:40 RDW 14.4 % (11.9-15.9) 04/06/19 07:40 Plt Count 266 K/MM3 (134-434) 04/06/19 07:40 MPV 8.2 fl (7.5-11.1) 04/06/19 07:40 Sodium 142 mmol/L (136-145) 04/06/19 07:40 Potassium 3.8 mmol/L (3.5-5.1) 04/06/19 07:40 Chloride 106 mmol/L (98-107) 04/06/19 07:40 Carbon Dioxide 30 mmol/L (21-32) 04/06/19 07:40 Anion Gap 7 MMOL/L (8-16) L 04/06/19 07:40 BUN 7.7 mg/dL (7-18) 04/06/19 07:40 Creatinine 0.9 mg/dL (0.55-1.3) 04/06/19 07:40 Est GFR (CKD-EPI)AfAm 120.81 04/06/19 07:40 Est GFR (CKD-EPI)NonAf 104.24 04/06/19 07:40 Random Glucose 90 mg/dL (74-106) 04/06/19 07:40 Calcium 9.1 mg/dL (8.5-10.1) 04/06/19 07:40 Total Bilirubin 0.1 mg/dL (0.2-1) L 04/06/19 07:40 AST 62 U/L (15-37) H 04/06/19 07:40 ALT 58 U/L (13-61) 04/06/19 07:40 Alkaline Phosphatase 71 U/L (45-117) 04/06/19 07:40 Total Protein 7.6 g/dl (6.4-8.2) 04/06/19 07:40 Albumin 4.0 g/dl (3.4-5.0) 04/06/19 07:40 RPR Titer Nonreactive (NONREACTIVE) 04/06/19 07:40 HIV 1&2 Antibody Screen Negative 04/06/19 07:40 HIV P24 Antigen Negative 04/06/19 07:40 lab noted Assessment: 04/07/19 12:12 alcohol withdrawal Plan: librium regimen
[2019-04-07] MEDS: traZODone HCL 100 MG TABLET (FP) PO SCH (22:22)
[2019-04-07] MEDS: THIAMINE HCL 100 MG TABLET (FP) PO SCH (22:22)
[2019-04-08] MEDS ORDERED: chlordiazePOXIDE HCL 10 MG CAPSULE PO PRN
[2019-04-08] MEDS: chlordiazePOXIDE HCL 10 MG CAPSULE PO SCH ×2 (06:08→11:05)
[2019-04-08] MEDS: NICOTINE 14 MG/24 HOURS TOPICAL PATCH TD SCH (10:29)
[2019-04-08] MEDS: PRENATAL VITAMINS W/ FOLIC ACID TABLET (FP) PO SCH (10:29)
[2019-04-08] MEDS: FLUoxetine HCL 20 MG CAPSULE (FP) PO SCH (11:05)
[2019-04-08 13:20] VITALS: BP 118/82; PULSE 78; TEMP 96.2
--- NOTE | 2019-04-08 14:47 | DS ---
[facility] Detox Discharge Summary Admission Date: 04/05/19 Discharge Date: 04/08/19 - History Present History: Alcohol Dependence Additional Comments: 43 years old male admitted on 04/05/19 for alcohol withdrawal sx management treated with librium detox regimen patient tolerated well alert oriented x 3 ambulating steady gait speech clearly coherently patient insists to leave the detox unit one day early as estimated day on case discussed with the nurse against medical advice is appropriated - Physical Exam Results Vital Signs: Vital Signs Temperature 96.2 F L 04/08/19 13:18 Pulse Rate 78 04/08/19 13:18 Respiratory Rate 18 04/08/19 13:18 Blood Pressure 118/82 04/08/19 13:18 O2 Sat by Pulse Oximetry (%) Pertinent Admission Physical Exam Findings: alcohol withdrawal Laboratory Last Values WBC 8.3 K/mm3 (4.0-10.0) 04/06/19 07:40 RBC 4.78 M/mm3 (4.00-5.60) 04/06/19 07:40 Hgb 14.2 GM/dL (11.7-16.9) 04/06/19 07:40 Hct 43.1 % (35.4-49) 04/06/19 07:40 MCV 90.2 fl (80-96) 04/06/19 07:40 MCH 29.8 pg (25.7-33.7) 04/06/19 07:40 MCHC 33.0 g/dl (32.0-35.9) 04/06/19 07:40 RDW 14.4 % (11.9-15.9) 04/06/19 07:40 Plt Count 266 K/MM3 (134-434) 04/06/19 07:40 MPV 8.2 fl (7.5-11.1) 04/06/19 07:40 Sodium 142 mmol/L (136-145) 04/06/19 07:40 Potassium 3.8 mmol/L (3.5-5.1) 04/06/19 07:40 Chloride 106 mmol/L (98-107) 04/06/19 07:40 Carbon Dioxide 30 mmol/L (21-32) 04/06/19 07:40 Anion Gap 7 MMOL/L (8-16) L 04/06/19 07:40 BUN 7.7 mg/dL (7-18) 04/06/19 07:40 Creatinine 0.9 mg/dL (0.55-1.3) 04/06/19 07:40 Est GFR (CKD-EPI)AfAm 120.81 04/06/19 07:40 Est GFR (CKD-EPI)NonAf 104.24 04/06/19 07:40 Random Glucose 90 mg/dL (74-106) 04/06/19 07:40 Calcium 9.1 mg/dL (8.5-10.1) 04/06/19 07:40 Total Bilirubin 0.1 mg/dL (0.2-1) L 04/06/19 07:40 AST 62 U/L (15-37) H 04/06/19 07:40 ALT 58 U/L (13-61) 04/06/19 07:40 Alkaline Phosphatase 71 U/L (45-117) 04/06/19 07:40 Total Protein 7.6 g/dl (6.4-8.2) 04/06/19 07:40 Albumin 4.0 g/dl (3.4-5.0) 04/06/19 07:40 RPR Titer Nonreactive (NONREACTIVE) 04/06/19 07:40 HIV 1&2 Antibody Screen Negative 04/06/19 07:40 HIV P24 Antigen Negative 04/06/19 07:40 lab noted - Treatment Hospital Course: Detox Protocol Followed, Discharged Condition Good Patient has Accepted a Rehab Referral to: [facility] - Medication Discharge Medications: Ambulatory Orders NK [No Known Home Medication] 12/08/18 - Diagnosis (1) Alcohol dependence with uncomplicated intoxication Status: Acute (2) Asthma Status: Chronic Qualifiers: Asthma severity: mild Asthma persistence: intermittent Asthma complication type: with status asthmaticus Qualified Code(s): J45.22 - Mild intermittent asthma with status asthmaticus (3) Nicotine dependence Status: Acute Qualifiers: Nicotine product type: cigarettes Substance use status: in withdrawal Qualified Code(s): F17.213 - Nicotine dependence, cigarettes, with withdrawal (4) Substance induced mood disorder Status: Suspected - AMA Did Patient Leave Against Medical Advice: Yes
[2019-04-09] MEDS ORDERED: chlordiazePOXIDE HCL 10 MG CAPSULE PO SCH (05:00)
[2019-04-10] MEDS ORDERED: chlordiazePOXIDE HCL 10 MG CAPSULE PO ONE (05:00)
== END 2019-04-08 11:56 | disposition left against medical advice (07) | DRG 770 ==
LOC: YASAS 20:36 → Y3N 22:26
PROVIDERS: ADMIT Allergy & Immunology; ATTEND Allergy & Immunology
PROC: HZ2ZZZZ Detoxification Services for Substance Abuse Treatment (ICD-10-PCS; principal; 2019-04-05)
DX: F10.230 Alcohol dependence with withdrawal, uncomplicated (principal); F10.220 Alcohol dependence with intoxication, uncomplicated; F17.213 Nicotine dependence, cigarettes, with withdrawal; F19.24 Other psychoactive substance dependence with psychoactive substance-induced mood disorder; J45.22 Mild intermittent asthma with status asthmaticus; G47.00 Insomnia, unspecified; R00.0 Tachycardia, unspecified; Z91.018 Allergy to other foods; Z91.013 Allergy to seafood; Z62.810 Personal history of physical and sexual abuse in childhood; Z88.0 Allergy status to penicillin; Z88.1 Allergy status to other antibiotic agents; Z56.0 Unemployment, unspecified; Z91.5 Personal history of self-harm
CPT/HCPCS: 36415; 80053; 85027; 86593; 87389; 93005; 93010

== ENCOUNTER 2019-05-06 14:22 | Inpatient (IN) | payer OTHER ==
--- NOTE | 2019-05-06 16:04 | HP ---
CIWA Score Nausea/Vomitin-No Nausea/No Vomiting Muscle Tremors: None Anxiety: 3 Agitation: 2 Paroxysmal Sweats: No Perspiration Orientation: 2-Disoriented Date<2 days Tacttile Disturbances: 0-None Auditory Disturbances: 0-None Visual Disturbances: 2-Mild Sensitivity Headache: 0-None Present CIWA-Ar Total Score: 9 - Admission Criteria OASAS Guidelines: Admission for Medically Managed Detox: Requires at least one of the followin. CIWA greater than 12 2. Seizures within the past 24 hours 3. Delirium tremens within the past 24 hours 4. Hallucinations within the past 24 hours 5. Acute intervention needed for co occurring medical disorder 6. Acute intervention needed for co occurring psychiatric disorder 7. Severe withdrawal that cannot be handled at a lower level of care (continued vomiting, continued diarrhea, abnormal vital signs) requiring intravenous medication and/or fluids 8. Admitting History and Physical - Smoking History Smoking history: Current every day smoker Have you smoked in the past 12 months: Yes Aproximately how many cigarettes per day: 5 - Alcohol/Substance Use Hx Alcohol Use: Yes Admission ROS [facility] - HPI Allergies/Adverse Reactions: Allergies Allergy/AdvReac Type Severity Reaction Status Date / Time doxycycline Allergy Verified 05/06/19 16:40 Fish Containing Products Allergy Verified 05/06/19 16:40 onion Allergy Verified 05/06/19 16:40 Penicillins Allergy Verified 05/06/19 16:40 tomato Allergy Hives Verified 05/06/19 16:40 History of Present Illness: pt here requesting detox from etoh use , reports up to 10 beers /day ,denies seizures or tremors , starts drinking in the mornings , first age of use 16 , multiple prior detox at this facility , current [facility] 0.177 , reports relapse immediately after d/c. PMHX : asthma, depression, R ankle frx 2 years ago , casted Psych : suicide attempts by jumping in front of train ,taking a bottle of pills , most recently >1 yr ago , denies current SI / HI , PSHx : r inguinal hernia 2002 tobacco : 1/2 ppd . denies illicits. Exam Limitations: Clinical Condition, Intoxication - Ebola screening Have you traveled outside of the country in the last 21 days: No (N) Have you had contact with anyone from an Ebola affected area: No Do you have a fever: No - Review of Systems Constitutional: See HPI EENT: reports: No Symptoms Reported Respiratory: reports: No Symptoms reported Cardiac: reports: No Symptoms Reported GI: reports: See HPI : reports: No Symptoms Reported Musculoskeletal: reports: No Symptoms Reported Integumentary: reports: No Symptoms Reported Neuro: reports: No Symptoms reported Endocrine: reports: No Symptoms Reported Psychiatric: reports: Agitated, Anxious, Disorientated Patient History - Patient Medical History Hx Anemia: No Hx Asthma: Yes (Not on medication) Hx Chronic Obstructive Pulmonary Disease (COPD): No Hx Cancer: No Hx Cardiac Disorders: No Hx Congestive Heart Failure: No Hx Hypertension: No Hx Hypercholesterolemia: No Hx Pacemaker: No HX Cerebrovascular Accident: No Hx Seizures: No Hx Diabetes: No Hx Gastrointestinal Disorders: No Hx Liver Disease: No Hx Genitourinary Disorders: No Hx Sexually Transmitted Disorders: No Hx Renal Disease (ESRD): No Hx Thyroid Disease: No Hx Human Immunodeficiency Virus (HIV): No Hx Hepatitis C: No Hx Depression: Yes (Not on medication) Hx Suicide Attempt: Yes (Attempted suicide x 5. Denies suicidal ideation at this time) Hx Bipolar Disorder: No Hx Schizophrenia: Yes - Patient Surgical History Past Surgical History: Yes Hx Neurologic Surgery: No Hx Cataract Extraction: No Hx Cardiac Surgery: No Hx Lung Surgery: No Hx Breast Surgery: No Hx Breast Biopsy: No Hx Abdominal Surgery: No Hx Appendectomy: No Hx Cholecystectomy: No Hx Genitourinary Surgery: No Hx Section: No Hx Orthopedic Surgery: Yes (right ankle surgery 2016) Other Surgical History: right groin hernia sx 2003 Anesthesia Reaction: No - PPD History Date: 04/07/19 Results: 0 mm - Smoking Cessation Smoking history: Current every day smoker Have you smoked in the past 12 months: Yes Aproximately how many cigarettes per day: 5 Hx Chewing Tobacco Use: No Initiated information on smoking cessation: No - Substances abused Alcohol Substance route: Oral Frequency: Daily Amount used: 200oz/day Age of first use: 16 Date of last use: 05/06/19 Admission Physical Exam [facility] - Physical General Appearance: Yes: Alcohol on Breath, Intoxicated, Anxious HEENTM: Yes: EOMI, Hearing grossly Normal, Normocephalic, Normal Voice Respiratory: Yes: Chest Non-Tender, Lungs Clear, Normal Breath Sounds, No Respiratory Distress, No Accessory Muscle Use Neck: Yes: No masses,lesions,Nodules, Trachea in good position Cardiology: Yes: Regular Rhythm, Regular Rate, S1, S2 Abdominal: Yes: Non Tender, Soft Back: Yes: Normal Inspection Musculoskeletal: Yes: full range of Motion, Gait Steady Extremities: Yes: Normal Range of Motion, Non-Tender Neurological: Yes: Alert, Motor Strength 5/5, Disoriented, Depressed Affect - Diagnostic (1) Alcohol dependence with uncomplicated intoxication Current Visit: Yes Status: Acute (2) Nicotine dependence Current Visit: Yes Status: Chronic Qualifiers: Nicotine product type: cigarettes Breathalyzer - Breathalyzer Breathalyzer: 0.202 Urine Drug Screen - Test Device Lot number: [id number] Expiration date: 11/14/20 - Control Is test valid?: Yes - Results Drug screen NEGATIVE: Yes Urine drug screen results: BZO-Benzodiazepines Inpatient Rehab Admission - Rehab Decision to Admit Inpatient rehab admission?: No
[2019-05-06 16:40] VITALS: BMI 23.7
[2019-05-06] MEDS ORDERED: MAGNESIUM CITRATE 300 ML BOTTLE PO PRN (17:31)
[2019-05-06] MEDS ORDERED: MAGNESIUM HYDROX 2400MG/30ML ORAL SUSPENSION 30 ML CUP PO PRN (17:31)
[2019-05-06] MEDS ORDERED: ACETAMINOPHEN 325 MG TABLET (FP) PO PRN ×2 (17:31)
[2019-05-06] MEDS ORDERED: hydrOXYzine PAMOATE 25 MG CAPSULE (FP) PO PRN (17:31)
[2019-05-06] MEDS ORDERED: MENTHOL/PHENOL 1 EACH UD MM PRN (17:31)
[2019-05-06] MEDS ORDERED: IBUPROFEN 400 MG TABLET (FP) PO PRN (17:31)
[2019-05-06] MEDS ORDERED: MAG HYDROX/AL HYDROX/SIMETH 30 ML UNIT-DOSE CUP PO PRN (17:31)
[2019-05-06] MEDS ORDERED: BISMUTH SUBSALICYLATE 524 MG/30 ML UD PO PRN (17:31)
[2019-05-06] MEDS ORDERED: METHOCARBAMOL 500 MG TABLET PO PRN (17:31)
[2019-05-06] MEDS ORDERED: diazePAM 5 MG TABLET PO PRN (17:32)
[2019-05-06] MEDS: diazePAM 5 MG TABLET PO SCH ×2 (18:44→22:17)
[2019-05-06] MEDS: THIAMINE HCL 100 MG TABLET (FP) PO SCH (22:17)
[2019-05-06] MEDS: MELATONIN 5 MG TABLETS PO PRN (22:17)
[2019-05-07] MEDS: diazePAM 5 MG TABLET PO SCH ×3 (05:29→22:16)
--- NOTE | 2019-05-07 09:42 | PN ---
S CIWA - CIWA Score Nausea/Vomitin-Mild Nausea/No Vomiting Muscle Tremors: 3 Anxiety: 2 Agitation: 1-Slight > Activity Paroxysmal Sweats: 2 Orientation: 0-Oriented Tacttile Disturbances: 0-None Auditory Disturbances: 0-None Visual Disturbances: 1-Very Mild Sensitivity Headache: 2-Mild CIWA-Ar Total Score: 12 BHS Progress Note (SOAP) Subjective: 43 years old male admitted on 05/06/19 for alcohol withdrawal sx management treating with valium detox regimen feeling ok today ate breakfast in day room social with peers less anxious but tremor Objective: 05/07/19 09:43 Vital Signs Temperature 97.9 F 05/07/19 09:18 Pulse Rate 72 05/07/19 09:18 Respiratory Rate 18 05/07/19 09:18 Blood Pressure 115/71 05/07/19 09:18 O2 Sat by Pulse Oximetry (%) 05/07/19 09:44 lab see 04/06/19 no need for repeat admission lab work Assessment: 05/07/19 09:45 alcohol withdrawal Plan: valium regimen
[2019-05-07] MEDS: PRENATAL VITAMINS W/ FOLIC ACID TABLET (FP) PO SCH (10:17)
--- NOTE | 2019-05-07 10:52 | CONSULT ---
[facility] Psychiatric Consult - Data Date of interview: 05/07/19 Admission source: [facility] Identifying data: Patient is a 43 year old single male, father of three, unemployed, resides in a [place] and is not supported with financial assistance. This is one of multiple admissions for patient. Patient admitted to for alcohol dependence. Substance Abuse History: Smoking Cessation. Smoking history: Current every day smoker. Have you smoked in the past 12 months: Yes. Aproximately how many cigarettes per day: 5. Hx Chewing Tobacco Use: No. Initiated information on smoking cessation: No. - Substances abused. Alcohol. Substance route: Oral. Frequency: Daily. Amount used: 200oz/day. Age of first use: 16. Date of last use: 05/06/19 Medical History: Medical history is remarkable for bronchial asthma, antecedent of inguinal herniorraphy (2002) and orthosurgery (fracture of right ankle) in 2015. Psychiatric History: Patient reports history of multiple psychiatric hospitalizations, most recently discharged on April 18 from [facility] for treatment of depression and suicidal ideation. Diagnosis of MDD. He was discharged with Lexapro 20mg + Trazodone 100mg. He reports additional hospitalizations at a facility in [facility], [facility], and [facility]. Patient reports history of three suicide attempts by overdose, and jumping in front of a train. Patient is not currently provided with outpatient psychiatric care. Mr. Leary denies current thoughts to hurt self of other. Physical/Sexual Abuse/Trauma History: denies. Mental Status Exam - Mental Status Exam Alert and Oriented to: Time, Place, Person Cognitive Function: Good Patient Appearance: Well Groomed Mood: Euthymic Affect: Appropriate Patient Behavior: Appropriate, Cooperative Speech Pattern: Clear Voice Loudness: Normal Thought Process: Intact, Goal Oriented Thought Disorder: Not Present Hallucinations: Denies Suicidal Ideation: Denies Homicidal Ideation: Denies Insight/Judgement: Poor Sleep: Poorly Appetite: Fair Muscle strength/Tone: Normal Gait/Station: Normal Psychiatric Findings - Problem List ([facility] 1, 2,3) (1) Alcohol dependence with uncomplicated intoxication Current Visit: Yes Status: Acute (2) Nicotine dependence Current Visit: Yes Status: Chronic Qualifiers: Nicotine product type: cigarettes (3) Alcohol-induced sleep disorder Current Visit: Yes Status: Acute (4) MDD (major depressive disorder) Current Visit: Yes Status: Chronic Comment: By history. - Initial Treatment Plan Initial Treatment Plan: Psychoeducation provided. Detoxification in progress. Will order Lexapro 20mg + Trazodone 100mg HS. Benefits and side effects discussed. Verbal consent given.
[2019-05-07] MEDS: ESCITALOPRAM OXALATE 20 MG TABLET PO SCH (13:32)
[2019-05-07] MEDS: traZODone HCL 100 MG TABLET (FP) PO SCH (22:17)
[2019-05-07] MEDS: MELATONIN 5 MG TABLETS PO PRN (22:17)
[2019-05-07] MEDS: THIAMINE HCL 100 MG TABLET (FP) PO SCH (22:17)
[2019-05-08] MEDS: diazePAM 5 MG TABLET PO SCH ×2 (05:17→10:08)
[2019-05-08] MEDS ORDERED: diazePAM 5 MG TABLET PO ONE (06:00)
--- NOTE | 2019-05-08 09:43 | PN ---
S CIWA - CIWA Score Nausea/Vomitin-No Nausea/No Vomiting Muscle Tremors: 2 Anxiety: 3 Agitation: 0-Normal Activity Paroxysmal Sweats: 1-Minimal Palms Moist Orientation: 0-Oriented Tacttile Disturbances: 0-None Auditory Disturbances: 0-None Visual Disturbances: 1-Very Mild Sensitivity Headache: 0-None Present CIWA-Ar Total Score: 7 BHS Progress Note (SOAP) Subjective: 43 years old male admitted on 05/06/19 for alcohol withdrawal sx management treating with valium detox regimen feeling better today slept through the night less tremor discussed aftercare with staff Objective: 05/08/19 09:43 Vital Signs Temperature 97.5 F L 05/08/19 09:09 Pulse Rate 77 05/08/19 09:09 Respiratory Rate 18 05/08/19 09:09 Blood Pressure 103/62 05/08/19 09:09 O2 Sat by Pulse Oximetry (%) lab see 04/06/19 report Assessment: 05/08/19 09:44 alcohol withdrawal Plan: valium regimen
[2019-05-08] MEDS: ESCITALOPRAM OXALATE 20 MG TABLET PO SCH (10:07)
[2019-05-08] MEDS: PRENATAL VITAMINS W/ FOLIC ACID TABLET (FP) PO SCH (10:07)
[2019-05-08] MEDS: traZODone HCL 100 MG TABLET (FP) PO SCH (22:34)
[2019-05-08] MEDS: THIAMINE HCL 100 MG TABLET (FP) PO SCH (22:34)
[2019-05-09] MEDS ORDERED: diazePAM 5 MG TABLET PO ONE (05:00)
[2019-05-09 09:13] VITALS: BP 129/75; PULSE 74; TEMP 98.4
--- NOTE | 2019-05-09 10:07 | DS ---
[facility] Detox Discharge Summary Admission Date: 05/06/19 Discharge Date: 05/09/19 - History Present History: Alcohol Dependence Additional Comments: 43 years old male admitted on 05/06/19 for alcohol withdrawal sx management treated with valium detox regiment patient has completed the valium regiment and tolerated well alert oriented x 3 seen by psychiatrist resume lexapro and trazadone cardiac s1s2 regular rate rhythm respiratory clear lungs bilaterally on auscultation skin warm and dry - Physical Exam Results Vital Signs: Vital Signs Temperature 98.4 F 05/09/19 09:13 Pulse Rate 74 05/09/19 09:13 Respiratory Rate 18 05/09/19 09:13 Blood Pressure 129/75 05/09/19 09:13 O2 Sat by Pulse Oximetry (%) Pertinent Admission Physical Exam Findings: alcohol withdrawal lab see 03/2019 report - Treatment Hospital Course: Detox Protocol Followed, Detoxed Safely, Responded well, Discharged Condition Good, Rehab Referral Accepted Patient has Accepted a Rehab Referral to: [facility] - Medication Discharge Medications: Ambulatory Orders Escitalopram Oxalate [Lexapro -] 20 mg PO DAILY 05/06/19 traZODone HCL [Trazodone HCl] 100 mg PO HS 05/06/19 - Diagnosis (1) Alcohol dependence with uncomplicated intoxication Status: Acute (2) Asthma Status: Chronic Qualifiers: Asthma severity: mild Asthma persistence: intermittent Asthma complication type: with status asthmaticus Qualified Code(s): J45.22 - Mild intermittent asthma with status asthmaticus (3) Nicotine dependence Status: Acute Qualifiers: Nicotine product type: cigarettes Substance use status: in withdrawal Qualified Code(s): F17.213 - Nicotine dependence, cigarettes, with withdrawal (4) Substance induced mood disorder Status: Suspected - AMA Did Patient Leave Against Medical Advice: No CIWA Score - CIWA Score Nausea/Vomitin-No Nausea/No Vomiting Muscle Tremors: 1-None Visible, but [place] Anxiety: 2 Agitation: 0-Normal Activity Paroxysmal Sweats: No Perspiration Orientation: 0-Oriented Tacttile Disturbances: 0-None Auditory Disturbances: 0-None Visual Disturbances: 0-None Headache: 0-None Present CIWA-Ar Total Score: 3
== END 2019-05-09 08:42 | disposition home or self-care (01) | DRG 775 ==
LOC: YASAS 14:22 → Y3N 17:29
PROVIDERS: ADMIT Allergy & Immunology; ATTEND Allergy & Immunology
PROC: HZ2ZZZZ Detoxification Services for Substance Abuse Treatment (ICD-10-PCS; principal; 2019-05-06)
DX: F10.230 Alcohol dependence with withdrawal, uncomplicated (principal); F17.213 Nicotine dependence, cigarettes, with withdrawal; F10.24 Alcohol dependence with alcohol-induced mood disorder; F19.24 Other psychoactive substance dependence with psychoactive substance-induced mood disorder; F33.9 Major depressive disorder, recurrent, unspecified; J45.22 Mild intermittent asthma with status asthmaticus; Z91.5 Personal history of self-harm; Z88.1 Allergy status to other antibiotic agents; Z88.8 Allergy status to other drugs, medicaments and biological substances; Z91.018 Allergy to other foods; Z91.013 Allergy to seafood

== ENCOUNTER 2019-05-12 10:32 | Emergency (ER) | payer OTHER ==
[2019-05-12 10:44] VITALS: TEMP 97.8; BMI 23.7
[2019-05-12] MEDS ORDERED: LIDOCAINE 5% TOPICAL PATCH TP ONE (10:54)
[2019-05-12] MEDS ORDERED: ACETAMINOPHEN 325 MG TABLET (FP) PO ONE (10:54)
[2019-05-12] MEDS ORDERED: ACETAMINOPHEN 325 MG TABLET (FP) ONE (11:25)
[2019-05-12] MEDS ORDERED: LIDOCAINE 5% TOPICAL PATCH ONE (11:25)
--- NOTE | 2019-05-12 11:40 | PDOC ---
Documentation entered by ePdro Rashid SCRIBE, acting as scribe for Tish Christianson MD. Tish Christianson MD: This documentation has been prepared by the Gay curtis Nirvannie, SCRIBE, under my direction and personally reviewed by me in its entirety. I confirm that the documentation accurately reflects all work, treatment, procedures, and medical decision making performed by me. History of Present Illness - General Chief Complaint: Alcohol intoxication Stated Complaint: INTOXICATION Time Seen by Provider: 05/12/19 10:46 History Source: Patient Exam Limitations: Intoxication - History of Present Illness Initial Comments: 05/12/19 11:29 HPI: [id number] with significant past medical history of EtOH abuse, anxiety, depression, schizophrenia, and chronic back pain who presents to the ED via EMS with 6 hours alcohol intoxication. As per patient, he has been consuming approximately 2 pts of liquor and 240oz of beer alone beginning at 5am this morning. He endorses falling and hitting his head this morning secondary to intoxication, prompting his arrival to the ED. While in the ED, patients only complaint is his chronic back pain. Patient notes he is going to rehab tomorrow thus, he wanted to constitution party hard today. History is limited secondary to patients clinical condition. He denies any syncope. Denies fever, chills, chest pain, SOB, palpitation, dizziness, weakness, N, V, D, abdominal pain, bladder and bowel problems, leg swelling, No sick contacts or travel. No new changes in medications. Allergies: None Past Medical History: EtOH abuse, anxiety, depression, schizophrenia, and chronic back pain Social history: Lives with family. Alcohol abuse. No tobacco, or drug use. Surgical history: None reported. Meds: as documented in EMR Review of systems: Unable to perform secondary to patients clinical condition. Physical exam: General: +Malodorous. Well appearing, awake and alert, NAD. HEENT: NCAT, PERRL, EOMI, clear conjunctiva, anicteric, moist mucous membranes , clear oropharynx, no oral lesions.. Neck: +Upper cervical tenderness. neck supple, FROM Resp: CTAB, normal and even respirations, no respiratory distress CVS: RRR, no murmurs, 2+ peripheral pulses throughout, no peripheral edema Abdomen: soft, NTND, no rebound or guarding. No CVAT. Back: +Right paraspinal lumbar tenderness. normal inspection and ROM MSK: no edema, LUNA x4, ROM intact. No clubbing or cyanosis. normal bulk and tone. Extremities: no calf tenderness Neuro: +Nystagmus bilaterally. alert, oriented appropriately; no focal neurologic deficits Skin: warm and well perfused, cap refill <2 sec, normal color Past History - Past Medical History Allergies/Adverse Reactions: Allergies Allergy/AdvReac Type Severity Reaction Status Date / Time doxycycline Allergy Verified 05/12/19 10:40 Fish Containing Products Allergy Verified 05/12/19 10:40 onion Allergy Verified 05/12/19 10:40 Penicillins Allergy Verified 05/12/19 10:40 tomato Allergy Hives Verified 05/12/19 10:40 Home Medications: Ambulatory Orders Escitalopram Oxalate [Lexapro -] 20 mg PO DAILY 05/06/19 traZODone HCL [Trazodone HCl] 100 mg PO HS 05/06/19 Anemia: No Asthma: Yes (Not on medication) Cancer: No Cardiac Disorders: No CVA: No COPD: No CHF: No Diabetes: No GI Disorders: No Disorders: No HTN: No Hypercholesterolemia: No Kidney Stones: No Liver Disease: No Seizures: No Thyroid Disease: No - Surgical History Abdominal Surgery: No Appendectomy: No Cardiac Surgery: No Cholecystectomy: No Lung Surgery: No Neurologic Surgery: No Orthopedic Surgery: Yes (right ankle surgery 2016) - Reproductive History Testicular Surgery: No - Immunization History Immunization Up to Date: (unknown) - Psycho Social/Smoking Cessation Hx Smoking History: Never smoked Have you smoked in the past 12 months: Yes Number of Cigarettes Smoked Daily: 5 'Breaking Loose' booklet given: 04/05/19 Hx Alcohol Use: Yes Drug/Substance Use Hx: No Substance Use Type: Alcohol Hx Substance Use Treatment: No Review of Systems - Review of Systems Able to Perform ROS?: No *Physical Exam - Vital Signs Last Vital Signs Temp Pulse Resp BP Pulse Ox 97.8 F 95 H 18 125/96 97 05/12/19 10:42 05/12/19 10:42 05/12/19 10:42 05/12/19 10:42 05/12/19 10:42 ED Treatment Course - RADIOLOGY Radiology Studies Ordered: Category Date Time Status CERVICAL SPINE CT W/O CONTR [CT] Stat CT Scan 05/12/19 10:[address] WITHOUT CONTRAST [CT] Stat CT Scan 05/12/19 10:54 Ordered - Medications Given in the ED: ED Medications Discontinued Medications Generic Name Dose Route Start Last Admin Trade Name Pancho PRN Reason Stop Dose Admin Acetaminophen 650 mg 05/12/19 10:54 05/12/19 11:29 Tylenol - PO 05/12/19 10:55 650 mg ONCE ONE Administration Lidocaine 1 patch 05/12/19 10:54 05/12/19 11:29 Lidoderm Patch - TP 05/12/19 10:55 1 patch ONCE ONE Administration Medical Decision Making - Medical Decision Making 05/12/19 11:38 Vital Signs Temp Pulse Resp BP Pulse Ox 97.8 F 95 H 18 125/96 99 05/12/19 10:42 05/12/19 10:42 05/12/19 10:42 05/12/19 10:42 05/12/19 11:14 VS reviewed, wnl DDx. alcohol intoxication, alcohol withdrawal. drug intoxication No evidence of alcohol w/d. no fever. Patient demonstrates clinical evidence for alcohol intoxication. The patient admits to intentional heavy drinking of alcohol and denies fall or injury. The patient also denies drug use. Some of the history and physical exam is limited due to the state of intoxication. All clothes were removed, all parts of the body were evaluated and there is no evidence of acute trauma. The plan is to observe patient in the ED until clinical sobriety is reached and reassess history and physical examination. CT head unremarkable, no blood/CVA CT C spine neg for fx. pt monitored closely in the ED, pt seen and reassessed periodically. remained comfortable, no acute events, VS remain stable. at time of discharge, 05/12/19 15:10 - alert and awake, ambulatory AAO x3, NAD, no external signs of trauma. clinically improved, sober, clear and coherent in conversation, speech clear, gait stable, ambulatory. no acute neuro changes, nontremulous, normal mental status. no evidence of SI or HI or psychosis. Able to tolerate oral intake. Safe for discharge in stable condition. Patient states that they feel safe going home and have a safe way to get home. Given copy of tests performed. Discussed need to cut down on substance intake, given literature. offered detox and resources for ETOH abuse. prompt follow up encouraged. Recommend cessation of alcohol use, or at the least avoid heavy alcohol consumption. Strongly recommend alcohol rehabilitation/ detox: see enclosed list of centers (you must make the calls yourself for entrance into the program) . Return immediately if you develop signs of withdrawal. Discharge - Discharge Information Problems reviewed: Yes Clinical Impression/Diagnosis: Alcohol intoxication Qualifiers: Complication of substance-induced condition: uncomplicated Qualified Code(s): F10.920 - Alcohol use, unspecified with intoxication, uncomplicated Condition: Stable Disposition: HOME - Admission No - Follow up/Referral [place] [facility] [place] [facility] [Provider Group] [facility] [Provider Group] - Patient Discharge Instructions Patient Printed Discharge Instructions: DI for Alcohol Abuse Additional Instructions: 1) Please do not drink alcohol or ingest any mind-altering substances and drive or make important decisions. Please cut down on your substance use/abuse. 2) You were given information about substance use/abuse. Please review this literature. 3) If you have any worsening of symptoms please return to the ED immediately. 4 ) Please follow-up with your primary care doctor in the next 5-7 days for evaluation of symptoms. Please stop drinking to excess. Return to ED for seizures, shaking, confusion, intractable vomiting, blood in vomit or any other concerning symptoms. Please do not drink and drive. 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
[2019-05-12 15:13] VITALS: BP 132/83; PULSE 108
[2019-05-12] MEDS ORDERED: LIDOCAINE PATCH REMOVAL MC SCH (22:00)
== END 2019-05-12 15:31 | disposition home or self-care (01) ==
LOC: JER 10:32
DX: F10.120 Alcohol abuse with intoxication, uncomplicated (principal); F20.9 Schizophrenia, unspecified; F41.8 Other specified anxiety disorders; F32.9 Major depressive disorder, single episode, unspecified; M54.89 Other dorsalgia; G89.29 Other chronic pain; H55.00 Unspecified nystagmus; Z88.0 Allergy status to penicillin; Z88.1 Allergy status to other antibiotic agents; Z91.013 Allergy to seafood; Z91.018 Allergy to other foods
CPT/HCPCS: 70450-TC; 72125-TC; 99283-25

== ENCOUNTER 2019-06-16 20:13 | Inpatient (IN) | payer OTHER ==
[2019-06-16 20:40] VITALS: BMI 26.2
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
[2019-06-16] MEDS ORDERED: MELATONIN 5 MG TABLETS PO PRN (21:18)
[2019-06-16] MEDS ORDERED: IBUPROFEN 400 MG TABLET (FP) PO PRN (21:18)
[2019-06-16] MEDS ORDERED: MAGNESIUM HYDROX 2400MG/30ML ORAL SUSPENSION 30 ML CUP PO PRN (21:18)
[2019-06-16] MEDS ORDERED: MAGNESIUM CITRATE 300 ML BOTTLE PO PRN (21:18)
[2019-06-16] MEDS ORDERED: chlordiazePOXIDE HCL 25 MG CAPSULE PO PRN (21:18)
[2019-06-16] MEDS ORDERED: NICOTINE POLACRILEX 2 MG GUM BUC PRN (21:18)
[2019-06-16] MEDS ORDERED: MAG HYDROX/AL HYDROX/SIMETH 30 ML UNIT-DOSE CUP PO PRN (21:18)
[2019-06-16] MEDS ORDERED: MENTHOL/PHENOL 1 EACH UD MM PRN (21:18)
[2019-06-16] MEDS ORDERED: ACETAMINOPHEN 325 MG TABLET (FP) PO PRN ×2 (21:18)
[2019-06-16] MEDS ORDERED: BISMUTH SUBSALICYLATE 524 MG/30 ML UD PO PRN (21:18)
[2019-06-16] MEDS ORDERED: METHOCARBAMOL 500 MG TABLET PO PRN (21:18)
[2019-06-16] MEDS: THIAMINE HCL 100 MG TABLET (FP) PO SCH (22:06)
[2019-06-16] MEDS: chlordiazePOXIDE HCL 25 MG CAPSULE PO SCH (22:07)
[2019-06-17] MEDS: chlordiazePOXIDE HCL 25 MG CAPSULE PO SCH ×4 (05:37→22:12)
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
[2019-06-17] MEDS ORDERED: ESCITALOPRAM OXALATE 10 MG TABLET ONE (09:04)
--- NOTE | 2019-06-17 09:30 | EKG ---
Test Reason : Blood Pressure : / mmHG Vent. Rate : 092 BPM Atrial Rate : 092 BPM P-R Int : 136 ms QRS Dur : 098 ms QT Int : 388 ms P-R-T Axes : 067 023 048 degrees QTc Int : 479 ms NORMAL SINUS RHYTHM INCOMPLETE RIGHT BUNDLE BRANCH BLOCK BORDERLINE ECG WHEN COMPARED WITH ECG OF 05-APR-2019 23:17, INCOMPLETE RIGHT BUNDLE BRANCH BLOCK IS NOW PRESENT Confirmed by Irasema Husain ([id number]) on 06/17/2019 9:30:09 AM Referred By: TERESA Confirmed By:Irasema Husain
[2019-06-17] MEDS: PRENATAL VITAMINS W/ FOLIC ACID TABLET (FP) PO SCH (10:13)
[2019-06-17] MEDS: NICOTINE 14 MG/24 HOURS TOPICAL PATCH TD SCH (10:14)
[2019-06-17] MEDS: ESCITALOPRAM OXALATE 20 MG TABLET PO SCH (10:15)
[2019-06-17 10:20] LABS: HEMATOCRIT 39.2 % (35.4-49); HEMOGLOBIN 13.1 GM/dL (11.7-16.9); MCH 29.8 pg (25.7-33.7); MCHC 33.5 g/dl (32.0-35.9); MEAN PLT VOLUME 7.8 fl (7.5-11.1); PLATELET COUNT 230 K/MM3 (134-434); WHITE BLOOD COUNT 6.7 K/mm3 (4.0-10.0)
[2019-06-17 10:41] LABS: ALBUMIN 3.6 g/dl (3.4-5.0); BILIRUBIN,TOTAL 0.5 mg/dL (0.2-1); BLOOD UREA NITROGEN 6.9 mg/dL (7-18); CALCIUM 8.4 mg/dL (8.5-10.1); CREATININE 0.8 mg/dL (0.55-1.3); POTASSIUM 3.9 mmol/L (3.5-5.1); TOT PROT 6.9 g/dl (6.4-8.2)
--- NOTE | 2019-06-17 10:50 | EKG ---
Test Reason : Blood Pressure : / mmHG Vent. Rate : 082 BPM Atrial Rate : 082 BPM P-R Int : 136 ms QRS Dur : 094 ms QT Int : 392 ms P-R-T Axes : 065 028 047 degrees QTc Int : 457 ms NORMAL SINUS RHYTHM NORMAL ECG WHEN COMPARED WITH ECG OF 16-JUN-2019 21:31, NO SIGNIFICANT CHANGE WAS FOUND Confirmed by Irasema Husain ([id number]) on 06/17/2019 10:50:12 AM Referred By: TERESA SANCHEZ Confirmed By:Irasema Husain
--- NOTE | 2019-06-17 11:50 | PN ---
S CIWA - CIWA Score Nausea/Vomitin-No Nausea/No Vomiting Muscle Tremors: 3 Anxiety: 4-Mod. Anxious/Guarded Agitation: 2 Paroxysmal Sweats: 2 Orientation: 0-Oriented Tacttile Disturbances: 0-None Auditory Disturbances: 0-None Visual Disturbances: 1-Very Mild Sensitivity Headache: 1-Very Mild CIWA-Ar Total Score: 13 S Progress Note (SOAP) Subjective: 43 years old male admitted on 06/16/19 for alcohol withdrawal sx management treating with librium detox regiment tired resting in bed restlessness diarrhea x 1 after breakfast refuses antidiarrhea medication "I will be ok" encourage oral fluid for volume replacement Objective: 06/17/19 11:49 Vital Signs Temperature 96.2 F L 06/17/19 08:44 Pulse Rate 88 06/17/19 08:44 Respiratory Rate 18 06/17/19 08:44 Blood Pressure 124/72 06/17/19 08:44 O2 Sat by Pulse Oximetry (%) Laboratory Last Values WBC 6.7 K/mm3 (4.0-10.0) 06/17/19 08:00 RBC 4.40 M/mm3 (4.00-5.60) 06/17/19 08:00 Hgb 13.1 GM/dL (11.7-16.9) 06/17/19 08:00 Hct 39.2 % (35.4-49) 06/17/19 08:00 MCV 89.0 fl (80-96) 06/17/19 08:00 MCH 29.8 pg (25.7-33.7) 06/17/19 08:00 MCHC 33.5 g/dl (32.0-35.9) 06/17/19 08:00 RDW 14.0 % (11.9-15.9) 06/17/19 08:00 Plt Count 230 K/MM3 (134-434) 06/17/19 08:00 MPV 7.8 fl (7.5-11.1) 06/17/19 08:00 Sodium 143 mmol/L (136-145) 06/17/19 08:00 Potassium 3.9 mmol/L (3.5-5.1) 06/17/19 08:00 Chloride 106 mmol/L (98-107) 06/17/19 08:00 Carbon Dioxide 30 mmol/L (21-32) 06/17/19 08:00 Anion Gap 6 MMOL/L (8-16) L 06/17/19 08:00 BUN 6.9 mg/dL (7-18) L 06/17/19 08:00 Creatinine 0.8 mg/dL (0.55-1.3) 06/17/19 08:00 Est GFR (CKD-EPI)AfAm 126.81 06/17/19 08:00 Est GFR (CKD-EPI)NonAf 109.41 06/17/19 08:00 Random Glucose 78 mg/dL (74-106) 06/17/19 08:00 Calcium 8.4 mg/dL (8.5-10.1) L 06/17/19 08:00 Total Bilirubin 0.5 mg/dL (0.2-1) 06/17/19 08:00 AST 44 U/L (15-37) H 06/17/19 08:00 ALT 39 U/L (13-61) 06/17/19 08:00 Alkaline Phosphatase 71 U/L (45-117) 06/17/19 08:00 Total Protein 6.9 g/dl (6.4-8.2) 06/17/19 08:00 Albumin 3.6 g/dl (3.4-5.0) 06/17/19 08:00 HIV 1&2 Antibody Screen Negative 06/17/19 08:00 HIV P24 Antigen Negative 06/17/19 08:00 lab noted Assessment: 06/17/19 11:49 alcohol withdrawal Plan: librium regiment
[2019-06-17] MEDS: THIAMINE HCL 100 MG TABLET (FP) PO SCH (22:12)
[2019-06-17] MEDS: traZODone HCL 100 MG TABLET (FP) PO SCH (22:12)
[2019-06-18] MEDS: chlordiazePOXIDE HCL 25 MG CAPSULE PO SCH ×4 (06:51→22:08)
--- NOTE | 2019-06-18 09:47 | PN ---
[facility] CIWA - CIWA Score Nausea/Vomitin-No Nausea/No Vomiting Muscle Tremors: 3 Anxiety: 4-Mod. Anxious/Guarded Agitation: 2 Paroxysmal Sweats: 1-Minimal Palms Moist Orientation: 0-Oriented Tacttile Disturbances: 0-None Auditory Disturbances: 0-None Visual Disturbances: 0-None Headache: 0-None Present CIWA-Ar Total Score: 10 S Progress Note (SOAP) Subjective: 43 years old male admitted on 06/16/19 for alcohol withdrawal sx management treating with librium detox regiment no diarrhea today tolerate food and fluid well encourage the patient to discuss aftercare with staff Objective: 06/18/19 09:48 Vital Signs Temperature 96.5 F L 06/18/19 09:18 Pulse Rate 86 06/18/19 09:18 Respiratory Rate 18 06/18/19 09:18 Blood Pressure 126/73 06/18/19 09:18 O2 Sat by Pulse Oximetry (%) Laboratory Last Values WBC 6.7 K/mm3 (4.0-10.0) 06/17/19 08:00 RBC 4.40 M/mm3 (4.00-5.60) 06/17/19 08:00 Hgb 13.1 GM/dL (11.7-16.9) 06/17/19 08:00 Hct 39.2 % (35.4-49) 06/17/19 08:00 MCV 89.0 fl (80-96) 06/17/19 08:00 MCH 29.8 pg (25.7-33.7) 06/17/19 08:00 MCHC 33.5 g/dl (32.0-35.9) 06/17/19 08:00 RDW 14.0 % (11.9-15.9) 06/17/19 08:00 Plt Count 230 K/MM3 (134-434) 06/17/19 08:00 MPV 7.8 fl (7.5-11.1) 06/17/19 08:00 Sodium 143 mmol/L (136-145) 06/17/19 08:00 Potassium 3.9 mmol/L (3.5-5.1) 06/17/19 08:00 Chloride 106 mmol/L (98-107) 06/17/19 08:00 Carbon Dioxide 30 mmol/L (21-32) 06/17/19 08:00 Anion Gap 6 MMOL/L (8-16) L 06/17/19 08:00 BUN 6.9 mg/dL (7-18) L 06/17/19 08:00 Creatinine 0.8 mg/dL (0.55-1.3) 06/17/19 08:00 Est GFR (CKD-EPI)AfAm 126.81 06/17/19 08:00 Est GFR (CKD-EPI)NonAf 109.41 06/17/19 08:00 Random Glucose 78 mg/dL (74-106) 06/17/19 08:00 Calcium 8.4 mg/dL (8.5-10.1) L 06/17/19 08:00 Total Bilirubin 0.5 mg/dL (0.2-1) 06/17/19 08:00 AST 44 U/L (15-37) H 06/17/19 08:00 ALT 39 U/L (13-61) 06/17/19 08:00 Alkaline Phosphatase 71 U/L (45-117) 06/17/19 08:00 Total Protein 6.9 g/dl (6.4-8.2) 06/17/19 08:00 Albumin 3.6 g/dl (3.4-5.0) 06/17/19 08:00 RPR Titer Nonreactive (NONREACTIVE) 06/17/19 08:00 HIV 1&2 Antibody Screen Negative 06/17/19 08:00 HIV P24 Antigen Negative 06/17/19 08:00 lab noted Assessment: 06/18/19 09:48 alcohol withdrawal Plan: librium regiment
[2019-06-18] MEDS ORDERED: ESCITALOPRAM OXALATE 10 MG TABLET ONE (09:54)
[2019-06-18] MEDS: NICOTINE 14 MG/24 HOURS TOPICAL PATCH TD SCH (10:22)
[2019-06-18] MEDS: PRENATAL VITAMINS W/ FOLIC ACID TABLET (FP) PO SCH (10:22)
[2019-06-18] MEDS: ESCITALOPRAM OXALATE 20 MG TABLET PO SCH (10:22)
[2019-06-18] MEDS: traZODone HCL 100 MG TABLET (FP) PO SCH (22:08)
[2019-06-18] MEDS: THIAMINE HCL 100 MG TABLET (FP) PO SCH (22:08)
[2019-06-19] MEDS ORDERED: chlordiazePOXIDE HCL 10 MG CAPSULE PO PRN
[2019-06-19] MEDS: chlordiazePOXIDE HCL 10 MG CAPSULE PO SCH ×4 (06:36→22:16)
--- NOTE | 2019-06-19 09:26 | PN ---
S CIWA - CIWA Score Nausea/Vomitin-No Nausea/No Vomiting Muscle Tremors: 1-None Visible, but [place] Anxiety: 2 Agitation: 1-Slight > Activity Paroxysmal Sweats: 2 Orientation: 0-Oriented Tacttile Disturbances: 0-None Auditory Disturbances: 0-None Visual Disturbances: 2-Mild Sensitivity Headache: 0-None Present CIWA-Ar Total Score: 8 BHS Progress Note (SOAP) Subjective: 43 years old male admitted on 06/16/19 for alcohol withdrawal sx management treating with librium detox regiment feeling ok today resting in bed comfortably easy to aroused encourage the patient to consider behavior and psychosocial therapies groups and meetings as part of alcohol recovery Objective: 06/19/19 09:27 Vital Signs Temperature 96.3 F L 06/19/19 08:45 Pulse Rate 83 06/19/19 08:45 Respiratory Rate 18 06/19/19 08:45 Blood Pressure 107/72 06/19/19 08:45 O2 Sat by Pulse Oximetry (%) Laboratory Last Values WBC 6.7 K/mm3 (4.0-10.0) 06/17/19 08:00 RBC 4.40 M/mm3 (4.00-5.60) 06/17/19 08:00 Hgb 13.1 GM/dL (11.7-16.9) 06/17/19 08:00 Hct 39.2 % (35.4-49) 06/17/19 08:00 MCV 89.0 fl (80-96) 06/17/19 08:00 MCH 29.8 pg (25.7-33.7) 06/17/19 08:00 MCHC 33.5 g/dl (32.0-35.9) 06/17/19 08:00 RDW 14.0 % (11.9-15.9) 06/17/19 08:00 Plt Count 230 K/MM3 (134-434) 06/17/19 08:00 MPV 7.8 fl (7.5-11.1) 06/17/19 08:00 Sodium 143 mmol/L (136-145) 06/17/19 08:00 Potassium 3.9 mmol/L (3.5-5.1) 06/17/19 08:00 Chloride 106 mmol/L (98-107) 06/17/19 08:00 Carbon Dioxide 30 mmol/L (21-32) 06/17/19 08:00 Anion Gap 6 MMOL/L (8-16) L 06/17/19 08:00 BUN 6.9 mg/dL (7-18) L 06/17/19 08:00 Creatinine 0.8 mg/dL (0.55-1.3) 06/17/19 08:00 Est GFR (CKD-EPI)AfAm 126.81 06/17/19 08:00 Est GFR (CKD-EPI)NonAf 109.41 06/17/19 08:00 Random Glucose 78 mg/dL (74-106) 06/17/19 08:00 Calcium 8.4 mg/dL (8.5-10.1) L 06/17/19 08:00 Total Bilirubin 0.5 mg/dL (0.2-1) 06/17/19 08:00 AST 44 U/L (15-37) H 06/17/19 08:00 ALT 39 U/L (13-61) 06/17/19 08:00 Alkaline Phosphatase 71 U/L (45-117) 06/17/19 08:00 Total Protein 6.9 g/dl (6.4-8.2) 06/17/19 08:00 Albumin 3.6 g/dl (3.4-5.0) 06/17/19 08:00 RPR Titer Nonreactive (NONREACTIVE) 06/17/19 08:00 HIV 1&2 Antibody Screen Negative 06/17/19 08:00 HIV P24 Antigen Negative 06/17/19 08:00 lab noted Assessment: 06/19/19 09:27 alcohol withdrawal Plan: librium regiment
[2019-06-19] MEDS ORDERED: ESCITALOPRAM OXALATE 10 MG TABLET ONE (10:01)
[2019-06-19] MEDS: PRENATAL VITAMINS W/ FOLIC ACID TABLET (FP) PO SCH (10:27)
[2019-06-19] MEDS: NICOTINE 14 MG/24 HOURS TOPICAL PATCH TD SCH (10:28)
[2019-06-19] MEDS: ESCITALOPRAM OXALATE 20 MG TABLET PO SCH (10:29)
[2019-06-19] MEDS: traZODone HCL 100 MG TABLET (FP) PO SCH (22:16)
[2019-06-19] MEDS: THIAMINE HCL 100 MG TABLET (FP) PO SCH (22:16)
[2019-06-20] MEDS ORDERED: chlordiazePOXIDE HCL 10 MG CAPSULE PO SCH (05:00)
[2019-06-20 09:19] VITALS: BP 125/79; PULSE 83; TEMP 96
[2019-06-20] MEDS: PRENATAL VITAMINS W/ FOLIC ACID TABLET (FP) PO SCH (09:38)
[2019-06-20] MEDS: NICOTINE 14 MG/24 HOURS TOPICAL PATCH TD SCH (09:38)
[2019-06-20] MEDS: ESCITALOPRAM OXALATE 20 MG TABLET PO SCH (09:38)
--- NOTE | 2019-06-20 14:36 | DS ---
[facility] Detox Discharge Summary Admission Date: 06/16/19 Discharge Date: 06/20/19 - History Present History: Alcohol Dependence Additional Comments: 43 years old male admitted on 06/16/19 for alcohol withdrawal sx management treated with librium detox regiment Mr Leary prefers to leave detox to day instead of estimated discharge day of 06/21/19 patient is alert oriented x 3 speech clearly coherently ambulating steady gait seen by psychiatrist resume lexapro and trazadone cardiac s1s2 regular rate rhythm respiratory clear lungs bilaterally on auscultation extremities full range of motion Pertinent Past History: time for discharge 45 minutes - Physical Exam Results Vital Signs: Vital Signs Temperature 96.0 F L 06/20/19 08:40 Pulse Rate 83 06/20/19 08:40 Respiratory Rate 18 06/20/19 08:40 Blood Pressure 125/79 06/20/19 08:40 O2 Sat by Pulse Oximetry (%) Pertinent Admission Physical Exam Findings: opiate withdrawal Laboratory Laboratory Last Values WBC 6.7 K/mm3 (4.0-10.0) 06/17/19 08:00 RBC 4.40 M/mm3 (4.00-5.60) 06/17/19 08:00 Hgb 13.1 GM/dL (11.7-16.9) 06/17/19 08:00 Hct 39.2 % (35.4-49) 06/17/19 08:00 MCV 89.0 fl (80-96) 06/17/19 08:00 MCH 29.8 pg (25.7-33.7) 06/17/19 08:00 MCHC 33.5 g/dl (32.0-35.9) 06/17/19 08:00 RDW 14.0 % (11.9-15.9) 06/17/19 08:00 Plt Count 230 K/MM3 (134-434) 06/17/19 08:00 MPV 7.8 fl (7.5-11.1) 06/17/19 08:00 Sodium 143 mmol/L (136-145) 06/17/19 08:00 Potassium 3.9 mmol/L (3.5-5.1) 06/17/19 08:00 Chloride 106 mmol/L (98-107) 06/17/19 08:00 Carbon Dioxide 30 mmol/L (21-32) 06/17/19 08:00 Anion Gap 6 MMOL/L (8-16) L 06/17/19 08:00 BUN 6.9 mg/dL (7-18) L 06/17/19 08:00 Creatinine 0.8 mg/dL (0.55-1.3) 06/17/19 08:00 Est GFR (CKD-EPI)AfAm 126.81 06/17/19 08:00 Est GFR (CKD-EPI)NonAf 109.41 06/17/19 08:00 Random Glucose 78 mg/dL (74-106) 06/17/19 08:00 Calcium 8.4 mg/dL (8.5-10.1) L 06/17/19 08:00 Total Bilirubin 0.5 mg/dL (0.2-1) 06/17/19 08:00 AST 44 U/L (15-37) H 06/17/19 08:00 ALT 39 U/L (13-61) 06/17/19 08:00 Alkaline Phosphatase 71 U/L (45-117) 06/17/19 08:00 Total Protein 6.9 g/dl (6.4-8.2) 06/17/19 08:00 Albumin 3.6 g/dl (3.4-5.0) 06/17/19 08:00 RPR Titer Nonreactive (NONREACTIVE) 06/17/19 08:00 HIV 1&2 Antibody Screen Negative 06/17/19 08:00 HIV P24 Antigen Negative 06/17/19 08:00 lab noted - Treatment Hospital Course: Detox Protocol Followed, Detoxed Safely, Responded well, Discharged Condition Good, Rehab Referral Accepted Patient has Accepted a Rehab Referral to: medication assisted treatment program - Medication Discharge Medications: Ambulatory Orders Escitalopram Oxalate [Lexapro -] 20 mg PO DAILY 05/06/19 traZODone HCL [Trazodone HCl] 100 mg PO HS 05/06/19 - Diagnosis (1) Alcohol dependence with uncomplicated intoxication Status: Acute (2) Asthma Status: Chronic Qualifiers: Asthma severity: mild Asthma persistence: intermittent Asthma complication type: unspecified Qualified Code(s): J45.20 - Mild intermittent asthma, uncomplicated (3) Nicotine dependence Status: Acute Qualifiers: Nicotine product type: cigarettes Substance use status: in withdrawal Qualified Code(s): F17.213 - Nicotine dependence, cigarettes, with withdrawal (4) Substance induced mood disorder Status: Suspected - AMA Did Patient Leave Against Medical Advice: No CIWA Score - CIWA Score Nausea/Vomitin-No Nausea/No Vomiting Muscle Tremors: 1-None Visible, but [place] Anxiety: 1-Mildly Anxious Agitation: 1-Slight > Activity Paroxysmal Sweats: 1-Minimal Palms Moist Orientation: 0-Oriented Tacttile Disturbances: 0-None Auditory Disturbances: 0-None Visual Disturbances: 1-Very Mild Sensitivity Headache: 0-None Present CIWA-Ar Total Score: 5 COWS (PN) - Opiate Withdrawal Resting Pulse: 1= [place] 81-100 Sweatin= No chills or Flushing Restless Observation: 0= Sits Still Pupil Size: 0= Normal to Room Light Bone or Joint Aches: 1= Mild Discomfort Runny Nose/ Eye Tearin= None GI Upset > 30mins: 0= None Tremor Observation of Outstretched Hands: 0= None Yawning Observation: 0= None Anxiety or Irritability: 0= None Goose Flesh Skin: 0=Smooth Skin COWS Score: 2
[2019-06-21] MEDS ORDERED: chlordiazePOXIDE HCL 10 MG CAPSULE PO ONE (05:00)
== END 2019-06-20 08:59 | disposition home or self-care (01) | DRG 775 ==
LOC: YASAS 20:13 → Y3N 21:26
PROVIDERS: ADMIT Allergy & Immunology; ATTEND Allergy & Immunology
PROC: HZ2ZZZZ Detoxification Services for Substance Abuse Treatment (ICD-10-PCS; principal; 2019-06-16)
DX: F10.230 Alcohol dependence with withdrawal, uncomplicated (principal); F17.213 Nicotine dependence, cigarettes, with withdrawal; F33.9 Major depressive disorder, recurrent, unspecified; F19.24 Other psychoactive substance dependence with psychoactive substance-induced mood disorder; F10.24 Alcohol dependence with alcohol-induced mood disorder; F20.9 Schizophrenia, unspecified; F10.282 Alcohol dependence with alcohol-induced sleep disorder; Z62.810 Personal history of physical and sexual abuse in childhood; Z88.0 Allergy status to penicillin; Z91.013 Allergy to seafood; Z88.1 Allergy status to other antibiotic agents; Z91.018 Allergy to other foods; Z91.5 Personal history of self-harm; Z59.0 Homelessness
CPT/HCPCS: 36415; 80053; 85027; 86593; 87389; 93005; 93010

== ENCOUNTER 2019-06-22 22:06 | Emergency (ER) | payer OTHER ==
[2019-06-22 22:13] VITALS: TEMP 98.8; BMI 24.4
--- NOTE | 2019-06-22 22:18 | PDOC ---
History of Present Illness - General Stated Complaint: INTOX Time Seen by Provider: 06/22/19 22:18 Past History - Past Medical History Allergies/Adverse Reactions: Allergies Allergy/AdvReac Type Severity Reaction Status Date / Time doxycycline Allergy Verified 06/22/19 22:08 Fish Containing Products Allergy Verified 06/22/19 22:08 onion Allergy Verified 06/22/19 22:08 Penicillins Allergy Verified 06/22/19 22:08 tomato Allergy Hives Verified 06/22/19 22:08 Home Medications: Ambulatory Orders Escitalopram Oxalate [Lexapro -] 20 mg PO DAILY 05/06/19 traZODone HCL [Trazodone HCl] 100 mg PO HS 05/06/19 Anemia: No Asthma: Yes (Not on medication) Cancer: No Cardiac Disorders: No CVA: No COPD: No CHF: No Diabetes: No GI Disorders: No Disorders: No HTN: No Hypercholesterolemia: No Kidney Stones: No Liver Disease: No Seizures: No Thyroid Disease: No - Surgical History Abdominal Surgery: No Appendectomy: No Cardiac Surgery: No Cholecystectomy: No Lung Surgery: No Neurologic Surgery: No Orthopedic Surgery: Yes (right ankle surgery 2016) - Reproductive History Testicular Surgery: No - Immunization History Immunization Up to Date: (unknown) - Psycho Social/Smoking Cessation Hx Smoking History: Unknown if ever smoked Have you smoked in the past 12 months: No Number of Cigarettes Smoked Daily: 10 Information on smoking cessation initiated: No 'Breaking Loose' booklet given: 06/16/19 Hx Alcohol Use: No Drug/Substance Use Hx: No Substance Use Type: Alcohol Hx Substance Use Treatment: Yes ([facility]) *Physical Exam - Vital Signs Last Vital Signs Temp Pulse Resp BP Pulse Ox 98.8 F 96 H 20 104/52 L 99 06/22/19 22:08 06/22/19 22:08 06/22/19 22:08 06/22/19 22:08 06/22/19 22:08 06/22/19 22:40 43 y/o male PMH anxiety, depression, schizophrenia, nicotine use disorder, coca ine abuse, and etoh abuse c/o being acutely intoxicated by etoh. This has happened on many occasions in the past. He was sent here from [facility] 05/19 no available beds. Pt reports that he was drinking vodka and decided he wanted to go to rehab. His last drink was today before entering rehab. He denies any other complaints. Pt reports he drinks, "as much as I can get." He also reports IH cocaine use when it is available. Denies FNVD, chills, and constipation No new meds/herbs, drugs/supplements No recent illness, sick contacts, or recent travel CIWA 0 Fam hx: denies/unaware Surgical hx: Inguinal hernia repair (2002) Social hx: active smoker 1/2 ppd for over 20 years, etoh abuse as above (vodka daily, unclear quantity), uses inhalational cocaine. Does not work. Is periodically non-domiciled and at other times lives with in an apartment or in a fpc. Sexual hx: Currently sexually active with women only. Denies h/o STI. REVIEW OF SYSTEMS CONSTITUTIONAL: Absent: fever, chills, diaphoresis, generalized weakness, malaise, loss of appetite, weight change HEENT: Absent: rhinorrhea, nasal congestion, throat pain, throat swelling, difficulty swallowing, mouth swelling, ear pain, eye pain, visual changes CARDIOVASCULAR: Absent: chest pain, syncope, palpitations, irregular heart rate, lightheadedness, peripheral edema RESPIRATORY: Absent: cough, shortness of breath, dyspnea with exertion, orthopnea, wheezing, stridor, hemoptysis GASTROINTESTINAL: Absent: abdominal pain, abdominal distension, nausea, vomiting, diarrhea, constipation, melena, hematochezia GENITOURINARY: Absent: dysuria, frequency, urgency, hesitancy, hematuria, flank pain, genital pain MUSCULOSKELETAL: Absent: myalgia, arthralgia, joint swelling, back pain, neck pain SKIN: Absent: rash, itching, pallor HEMATOLOGIC/IMMUNOLOGIC: Absent: easy bleeding, easy bruising, lymphadenopathy, frequent infections ENDOCRINE: Absent: unexplained weight gain, unexplained weight loss, heat intolerance, cold intolerance NEUROLOGIC: Absent: headache, focal weakness or paresthesias, dizziness, unsteady gait, seizure, mental status changes, bladder or bowel incontinence PSYCHIATRIC: Absent: anxiety, depression, suicidal or homicidal ideation, hallucinations. GENERAL: AO x3 NAD, sleepy, acutely intoxicated, smells of etoh HEAD: NCAT EYES: ANUSHA, EOMI, sclera anicteric, conjunctiva clear. BL ptosis. ENT: Ears normal, nares patent, oropharynx clear without exudates, dry mucous membranes. NECK: Trachea midline, full range of motion, supple. LUNGS: CTAB , no wheezes, no crackles, no accessory muscle use. HEART: RRR, S1, S2 without murmur, rub or gallop. ABDOMEN: Soft, nontender, nondistended, normoactive bowel sounds, no guarding, no rebound, no hepatosplenomegaly, no masses. EXTREMITIES: 2+ pulses, warm, well-perfused, no edema. NEUROLOGICAL: Not participating in exam. Patellar reflex 2+ BL. Sensation grossly intact. PSYCH: Normal mood, normal affect. SKIN: Warm, dry, normal turgor, no rashes or lesions noted # Acute etoh intoxication - DARLEEN - Serial observation till sobriety is achieved 06/23/19 Pt stable. Plan to dc to [facility]. Discharge - Discharge Information Problems reviewed: Yes Clinical Impression/Diagnosis: Intoxication, Alcohol dependence with uncomplicated intoxication Condition: Improved Disposition: HOME - Admission No - Additional Discharge Information Plan of Treatment: YOUR VISIT You came to the hospital because you were experiencing alcohol intoxication. You were seen in the emergency department for care of this problem. You are now stable and may return home. MEDICATIONS Please continue to take your home medications as prescribed. ADDITIONAL CARE Please make an appointment to see your primary care provider, 1 week from today. ADDITIONAL INFORMATION Please call 911 or come directly to the emergency department if you experience recurrence of the symptoms that brought you to the hospital, unusual headache, vision change, shortness of breath, chest pain, numbness, tingling, loss of alertness/awareness, loss of function, unusual bleeding or any alarming symptoms. - Follow up/Referral - Patient Discharge Instructions - Post Discharge Activity
--- NOTE | 2019-06-22 23:01 | PDOC ---
Attending Attestation - Resident Resident Name: Amrit Dooley - ED Attending Attestation I have performed the following: I have examined & evaluated the patient, The case was reviewed & discussed with the resident, I agree w/resident's findings & plan - HPI HPI: 06/23/19 00:04 Pt comes with alcohol intox. He went to [facility], and lay down on the floor and was sleeping because they had no beds. He has no complaints at this time. Pt is comfortably sleeping. He has been here recently, and his labs are all normal. - Physicial Exam PE: 06/23/19 00:05 Agree with resident exam. - Medical Decision Making 06/23/19 00:05 Pt has Alc level of 182. He will be sent home once etoh level is under 100, approx 4 hrs after arrival (2am)
[2019-06-23 06:02] VITALS: BP 113/67; PULSE 86
== END 2019-06-23 06:00 | disposition home or self-care (01) ==
LOC: JER 22:06
DX: F10.120 Alcohol abuse with intoxication, uncomplicated (principal); Y90.6 Blood alcohol level of 120-199 mg/100 ml
CPT/HCPCS: 36415; 80307; 99283-25

== ENCOUNTER 2019-06-28 20:10 | Emergency (ER) | payer OTHER ==
[2019-06-28 20:22] VITALS: BMI 25.1
--- NOTE | 2019-06-28 20:32 | PDOC ---
History of Present Illness - General Chief Complaint: Alcohol intoxication Stated Complaint: INTOX Time Seen by Provider: 06/28/19 20:29 History Source: Patient - History of Present Illness Initial Comments: 06/28/19 22:44 Mr. Leary is a 43 y/o man w/hx asthma, MDD, EtOH use disorder presenting from [facility] for EtOH intoxication. He reports a mechanical fall 3 days ago while at work, with ongoing bilateral knee and L elbow pain. He denies any head, neck, or back pain and has been ambulating without difficulty since the event. He denies any lightheadedness, vertigo, weakness, confusion, nausea, vomiting, chest pain, or difficulty breathing. History limited by intoxication. He reports interest in returning for detox after ED evaluation. Past History - Past Medical History Allergies/Adverse Reactions: Allergies Allergy/AdvReac Type Severity Reaction Status Date / Time doxycycline Allergy Verified 06/28/19 20:17 Fish Containing Products Allergy Verified 06/28/19 20:17 onion Allergy Verified 06/28/19 20:17 Penicillins Allergy Verified 06/28/19 20:17 tomato Allergy Hives Verified 06/28/19 20:17 Home Medications: Ambulatory Orders Escitalopram Oxalate [Lexapro -] 20 mg PO DAILY 05/06/19 traZODone HCL [Trazodone HCl] 100 mg PO HS 05/06/19 Anemia: No Asthma: Yes (Not on medication) Cancer: No Cardiac Disorders: No CVA: No COPD: No CHF: No Diabetes: No GI Disorders: No Disorders: No HTN: No Hypercholesterolemia: No Kidney Stones: No Liver Disease: No Seizures: No Thyroid Disease: No - Surgical History Abdominal Surgery: No Appendectomy: No Cardiac Surgery: No Cholecystectomy: No Lung Surgery: No Neurologic Surgery: No Orthopedic Surgery: Yes (right ankle surgery 2016) - Reproductive History Testicular Surgery: No - Immunization History Immunization Up to Date: (unknown) - Psycho Social/Smoking Cessation Hx Smoking History: Unknown if ever smoked Have you smoked in the past 12 months: No Number of Cigarettes Smoked Daily: 10 Information on smoking cessation initiated: No 'Breaking Loose' booklet given: 06/16/19 Hx Alcohol Use: Yes Drug/Substance Use Hx: Yes Substance Use Type: Alcohol Hx Substance Use Treatment: Yes ([facility]) Review of Systems - Review of Systems Able to Perform ROS?: Yes (Limited by intoxication) Comments:: 06/28/19 22:47 GENERAL/CONSTITUTIONAL: No fever or chills. No weakness. HEAD, EYES, EARS, NOSE AND THROAT: No change in vision. No ear pain or discharge. No sore throat. CARDIOVASCULAR: No chest pain or shortness of breath RESPIRATORY: No cough, wheezing, or hemoptysis. GASTROINTESTINAL: No nausea, vomiting, diarrhea or constipation. GENITOURINARY: No dysuria, frequency, or change in urination. MUSCULOSKELETAL: L elbow pain, bilateral knee pain. Full range of motion of upper and lower extremities. No other joint or muscle swelling or pain. No neck or back pain. SKIN: No rash NEUROLOGIC: No headache, vertigo, loss of consciousness, or change in strength/sensation. ENDOCRINE: No increased thirst. No abnormal weight change HEMATOLOGIC/LYMPHATIC: No anemia, easy bleeding, or history of blood clots. ALLERGIC/IMMUNOLOGIC: No hives or skin allergy. *Physical Exam - Vital Signs Last Vital Signs Temp Pulse Resp BP Pulse Ox 98.7 F 109 H 18 142/79 97 06/28/19 20:17 06/28/19 20:17 06/28/19 20:17 06/28/19 20:17 06/28/19 20:17 - Physical Exam 06/28/19 22:48 GENERAL: Intoxicated. Awake, alert, and fully oriented, in no acute distress HEAD: No signs of trauma, normocephalic, atraumatic EYES: PERRLA, EOMI, sclera anicteric, conjunctiva clear ENT: Auricles normal inspection, hearing grossly normal, nares patent, oropharynx clear without exudates. Moist mucosa NECK: Normal ROM, supple, no lymphadenopathy, JVD, or masses LUNGS: No distress, speaks full sentences, clear to auscultation bilaterally HEART: Regular rate and rhythm, normal S1 and S2, no murmurs, rubs or gallops, peripheral pulses normal and equal bilaterally. ABDOMEN: Soft, nontender, normoactive bowel sounds. No guarding, no rebound. No masses EXTREMITIES : L elbow superficial laceration, no active bleeding. Bilateral knee and L elbow tenderness. Normal inspection, Normal range of motion, no edema. No clubbing or cyanosis NEUROLOGICAL: Cranial nerves II through XII grossly intact. Normal speech, normal gait, no focal sensorimotor deficits SKIN: Warm, Dry, normal turgor, no rashes or lesions noted Medical Decision Making - Medical Decision Making 06/28/19 22:53 43M w/hx asthma, MDD, EtOH use disorder p/w etoh intoxication from [facility] s/p fall 3 days ago. Plan: XR L elbow XR L, R knees TDaP booster Dispo: Discharge pending sobriety 06/29/19 01:51 Patient signed out to Dr. Dukes during shift change. Discharge - Discharge Information Problems reviewed: Yes Clinical Impression/Diagnosis: Alcohol dependence with uncomplicated intoxication Condition: Stable Disposition: HOME - Admission No - Follow up/Referral - Patient Discharge Instructions - Post Discharge Activity
--- NOTE | 2019-06-28 21:54 | PDOC ---
Documentation entered by Tye Foreman SCRIBE, acting as scribe for Tabitha Lauren MD. Tabitha Lauren MD: This documentation has been prepared by the janiceibe, Tye Foreman SCRIBE, under my direction and personally reviewed by me in its entirety. I confirm that the documentation accurately reflects all work, treatment, procedures, and medical decision making performed by me. Attending Attestation - Resident Resident Name: Brenden Snider - ED Attending Attestation I have performed the following: I have examined & evaluated the patient, The case was reviewed & discussed with the resident, I agree w/resident's findings & plan, Exceptions are as noted - HPI HPI: 43 yo M history asthma, depression, EtOH abuse presents for EtOH intox. He states he fell a few days ago, sustained abrasions to his knees. Presents with L elbow abrasion as well. Denies any head injury. Limited history secondary to intox. - Physicial Exam PE: GENERAL: Awake, alert, and fully oriented. +AOB HEAD: No signs of trauma EYES: PERRLA, EOMI, sclera anicteric, conjunctiva clear ENT: Auricles normal inspection, hearing grossly normal, nares patent, oropharynx clear without exudates. Moist mucosa NECK: Normal ROM, supple, no lymphadenopathy, JVD, or masses LUNGS: Breath sounds equal, clear to auscultation bilaterally. No wheezes, and no crackles HEART: Regular rate and rhythm, normal S1 and S2, no murmurs, rubs or gallops ABDOMEN: Soft, nontender, normoactive bowel sounds. No guarding, no rebound. No masses EXTREMITIES: Normal range of motion, no edema. No clubbing or cyanosis. No cords, erythema, or tenderness NEUROLOGICAL: Cranial nerves II through XII grossly intact. +Slurred speech. Motor and sensation intact SKIN: Warm, dry, normal turgor, no rashes. +Abrasions to the elbows and knees. - Medical Decision Making Pt presents with intoxication, noted to have multiple abrasions. Cannot recall his last tdap, and there are none documented in [employer]. Will give tdap, obtain XRs. DC when clinically sober. <Tabitha Lauren - Last Filed: 06/28/19 23:47> Discharge - Discharge Information Problems reviewed: Yes - Admission No <Tabitha Lauren - Last Filed: 06/28/19 23:47> - Discharge Information Problems reviewed: Yes - Admission No <Cecilia Dukes - Last Filed: 06/29/19 05:52> - Discharge Information Clinical Impression/Diagnosis: Alcohol dependence with uncomplicated intoxication Condition: Stable Disposition: HOME - Patient Discharge Instructions Patient Printed Discharge Instructions: DI for Alcohol Abuse Additional Instructions: You were seen in the ER for intoxication You had x-rays done from a prior fall that were negative You should follow up with your Family Doctor within 1 week. Return to the ER if you develop worsening pain, numbness, tingling or any other concerning symptoms.
[2019-06-28] MEDS ORDERED: DIPHTH,PERTUSS(ACELL),TET 0.5 ML DISP.SYRIN IM ONE ×2 (22:49→23:56)
[2019-06-29 05:42] VITALS: BP 105/74; PULSE 87; TEMP 98
== END 2019-06-29 05:50 | disposition home or self-care (01) ==
LOC: JER 20:10
PROC: 3E0234Z Introduction of Serum, Toxoid and Vaccine into Muscle, Percutaneous Approach (ICD-10-PCS; principal; 2019-06-28)
DX: F10.220 Alcohol dependence with intoxication, uncomplicated (principal); S80.212A Abrasion, left knee, initial encounter; S80.211A Abrasion, right knee, initial encounter; S50.312A Abrasion of left elbow, initial encounter; S50.311A Abrasion of right elbow, initial encounter; W19.XXXA Unspecified fall, initial encounter; Y93.89 Activity, other specified; Y92.89 Other specified places as the place of occurrence of the external cause; Y99.8 Other external cause status; Z91.018 Allergy to other foods; Z91.013 Allergy to seafood; Z88.8 Allergy status to other drugs, medicaments and biological substances; Y90.9 Presence of alcohol in blood, level not specified
CPT/HCPCS: 73070-TC-LT-FY; 73562-TC-LT-FY; 73562-TC-RT-FY; 90715; 99284-25

== ENCOUNTER 2019-10-13 18:54 | Inpatient (IN) | payer OTHER ==
[2019-10-13 19:20] VITALS: BP 128/62; PULSE 96; TEMP 98.1; BMI 24.4
--- NOTE | 2019-10-13 20:14 | HP ---
CIWA Score Nausea/Vomitin-No Nausea/No Vomiting Muscle Tremors: None Anxiety: 0-No Anxiety, at Ease Agitation: 3 Paroxysmal Sweats: No Perspiration Orientation: 4-Disoriented Place/Person (place- intoxicated) Tacttile Disturbances: 0-None Auditory Disturbances: 0-None Visual Disturbances: 3-Moderate Sensitivity (to light) Headache: 5-Severe CIWA-Ar Total Score: 15 - Admission Criteria OASAS Guidelines: Admission for Medically Managed Detox: Requires at least one of the followin. CIWA greater than 12 2. Seizures within the past 24 hours 3. Delirium tremens within the past 24 hours 4. Hallucinations within the past 24 hours 5. Acute intervention needed for co occurring medical disorder 6. Acute intervention needed for co occurring psychiatric disorder 7. Severe withdrawal that cannot be handled at a lower level of care (continued vomiting, continued diarrhea, abnormal vital signs) requiring intravenous medication and/or fluids 8. Patient presents the following: CIWA greater than 12, Acute intervention needed for co-occurring med or psych disorder (client is presnetly intoxicated. 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 "I need to detox from alcohol Allergies/Adverse Reactions: Allergies Allergy/AdvReac Type Severity Reaction Status Date / Time tomato Allergy Intermediate Hives Verified 10/13/19 20:52 doxycycline Allergy Mild Verified 10/13/19 20:52 Fish Containing Products Allergy Mild Verified 10/13/19 20:52 onion Allergy Mild Verified 10/13/19 20:52 Penicillins Allergy Mild Verified 10/13/19 20:52 mayonnaise AdvReac Intermediate Verified 10/13/19 19:41 History of Present Illness: 44 y.o. male with alcoholism here for alcohol detox. he is self referred, known to program. last here 1 month ago. reports immediately relapsing after dc. 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 presents today seeking detox. he intoxicated but able to make needs known. reports drinking all day because "i dont want to get sick". reports last drink a few hours before coming in. hx/o black outs, denies seizxures, dt's, avh. denies any significant period of clean time in the past 12 months, except when in txment. 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 denies legals. Exam Limitations: No Limitations - Ebola screening Have you traveled outside of the country in the last 21 days: No Have you had contact with anyone from an Ebola affected area: No Have you been sick,other than usual withdrawal symptoms: No Do you have a fever: No - Review of Systems Constitutional: Changes in sleep EENT: reports: No Symptoms Reported Respiratory: reports: No Symptoms reported Cardiac: reports: No Symptoms Reported GI: reports: Poor Fluid Intake : reports: No Symptoms Reported Musculoskeletal: reports: Back Pain (chronic) Integumentary: reports: No Symptoms Reported Neuro: reports: Headache, Unsteady Gait (2/2 intoxication) Endocrine: reports: No Symptoms Reported Hematology: reports: No Symptoms Reported Psychiatric: reports: Orientated x3 (x2), Depressed, Disorientated (date/time), other (irritable) Other Systems: Reviewed and Negative Patient History - Patient Medical History Hx Anemia: No Hx Asthma: Yes Hx Chronic Obstructive Pulmonary Disease (COPD): No Hx Cancer: No Hx Cardiac Disorders: No Hx Congestive Heart Failure: No Hx Hypertension: No Hx Hypercholesterolemia: No Hx Pacemaker: No HX Cerebrovascular Accident: No Hx Seizures: No Hx Diabetes: No Hx Gastrointestinal Disorders: No Hx Liver Disease: No Hx Genitourinary Disorders: No Hx Sexually Transmitted Disorders: No Hx Renal Disease (ESRD): No Hx Thyroid Disease: No Hx Human Immunodeficiency Virus (HIV): No Hx Hepatitis C: No Hx Depression: Yes Hx Suicide Attempt: Yes (x4- does not recall last attempt) Hx Bipolar Disorder: No Hx Schizophrenia: No Other Medical History: denies - Patient Surgical History Past Surgical History: No Hx Neurologic Surgery: No Hx Cataract Extraction: No Hx Cardiac Surgery: No Hx Lung Surgery: No Hx Breast Surgery: No Hx Breast Biopsy: No Hx Abdominal Surgery: Yes (right inguinal hernia repair) Hx Appendectomy: No Hx Cholecystectomy: No Hx Genitourinary Surgery: No Hx Section: No Hx Orthopedic Surgery: Yes (right ankle surgery 2016) Other Surgical History: right ingunial hernia 2003 Anesthesia Reaction: No - PPD History Previous Implant?: Yes Documented Results: Negative w/proof Implanted On Prior [facility] Admission?: Yes Date: 04/07/19 Results: 0 mm PPD to be Administered?: No - Smoking Cessation Smoking history: Current every day smoker Have you smoked in the past 12 months: Yes Aproximately how many cigarettes per day: 20 Cigars Per Day: 0 Hx Chewing Tobacco Use: No Initiated information on smoking cessation: Yes 'Breaking Loose' booklet given: 10/13/19 - Substance & Tx. History Hx Alcohol Use: Yes Hx Substance Use: Yes Substance Use Type: Alcohol Hx Substance Use Treatment: Yes ([facility]) - Substances abused Alcohol Other (specify): beer-coors Substance route: Oral Frequency: Daily Amount used: greater than 96 oz Age of first use: 16 Date of last use: 10/13/19 Admission Physical Exam [facility] - Vital Signs Vital Signs: Vital Signs - 24 hr 10/13/19 19:18 Temperature 98.1 F Pulse Rate 96 H Respiratory 20 Rate Blood Pressure 128/62 - Physical General Appearance: Yes: Intoxicated, Irritable, Other (frequent periods of deep sleep state, arousable, verbally responsive (at times with slurred speech) with deep stimuli.) HEENTM: Yes: EOMI, Normocephalic, Normal Voice, NASIMA, Pharynx Normal, Other (drooling) Respiratory: Yes: Chest Non-Tender, Lungs Clear, Normal Breath Sounds, No Respiratory Distress, No Accessory Muscle Use Neck: Yes: No masses,lesions,Nodules, Supple, Trachea in good position Breast: Yes: Breasts Symetrical Cardiology: Yes: Regular Rhythm, S1, S2, Tachycardia Abdominal: Yes: Normal Bowel Sounds, Non Tender, Soft, Protuberent Genitourinary: Yes: Within Normal Limits Back: Yes: Normal Inspection Musculoskeletal: Yes: full range of Motion, Other (unsteady gait 2/2 intoxication) Extremities: Yes: Normal Capillary Refill, Normal Range of Motion, Non-Tender, Other (soiled finger beds) Neurological: Yes: Alert (arousable), Disoriented (to time/place) Integumentary: Yes: Dry, Warm Lymphatic: Yes: Within Normal Limits - Diagnostic (1) Alcohol dependence with withdrawal, unspecified Current Visit: Yes Status: Acute Qualifiers: Complication of substance-induced condition: with unspecified complication Qualified Code(s): F10.239 - Alcohol dependence with withdrawal, unspecified Comment: intoxicated (2) At risk for dehydration due to poor fluid intake Current Visit: Yes Status: Acute (3) Risk for falls Current Visit: Yes Status: Acute (4) Non compliance w medication regimen Current Visit: Yes Status: Suspected (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: Yes Status: Chronic (7) Asthma Current Visit: Yes Status: Chronic Qualifiers: Asthma severity: mild Asthma persistence: intermittent Asthma complication type: unspecified Qualified Code(s): J45.20 - Mild intermittent asthma, uncomplicated (8) Nicotine dependence Current Visit: Yes Status: Chronic Qualifiers: Nicotine product type: cigarettes Substance use status: uncomplicated Qualified Code(s): F17.210 - Nicotine dependence, cigarettes, uncomplicated (9) Alcohol dependence with intoxication, unspecified Current Visit: Yes Status: Acute Qualifiers: Complication of substance-induced condition: with unspecified complication Qualified Code(s): F10.229 - Alcohol dependence with intoxication, unspecified Comment: onset of withdrawal sx's Cleared for Admission S - Detox or Rehab [facility] Level of Care: Medically Managed Detox Regimen/Protocol: Librium Claeared for Rehab Admission: No Breathalyzer - Breathalyzer Breathalyzer: 0.215 Urine Drug Screen - Test Device Lot number: [id number] Expiration date: 12/15/20 - Control Is test valid?: Yes - Results Drug screen NEGATIVE: Yes Urine drug screen results: BZO-Benzodiazepines Inpatient Rehab Admission - Rehab Decision to Admit Inpatient rehab admission?: No
[2019-10-13] MEDS ORDERED: guaiFENesin 200 MG/10 ML 10 ML UNIT-DOSE CUPS PO PRN (20:22)
[2019-10-13] MEDS ORDERED: BISMUTH SUBSALICYLATE 524 MG/30 ML UD PO PRN (20:22)
[2019-10-13] MEDS ORDERED: MAGNESIUM CITRATE 300 ML BOTTLE PO PRN (20:22)
[2019-10-13] MEDS ORDERED: ACETAMINOPHEN 325 MG TABLET (FP) PO PRN ×2 (20:22)
[2019-10-13] MEDS ORDERED: MAG HYDROX/AL HYDROX/SIMETH 30 ML UNIT-DOSE CUP PO PRN (20:22)
[2019-10-13] MEDS ORDERED: DICYCLOMINE HCL 10 MG CAPSULE PO PRN (20:22)
[2019-10-13] MEDS ORDERED: NICOTINE POLACRILEX 2 MG GUM BUC PRN (20:22)
[2019-10-13] MEDS ORDERED: P-EPHED 60MG/TRIPROLIDI 2.5MG TABLET PO PRN (20:22)
[2019-10-13] MEDS ORDERED: ONDANSETRON *ODT* 4 MG TABLET SL ONE (20:22)
[2019-10-13] MEDS ORDERED: MENTHOL/PHENOL 1 EACH UD MM PRN (20:22)
[2019-10-13] MEDS ORDERED: IBUPROFEN 400 MG TABLET (FP) PO PRN (20:22)
[2019-10-13] MEDS ORDERED: MAGNESIUM HYDROX 2400MG/30ML ORAL SUSPENSION 30 ML CUP PO PRN (20:22)
[2019-10-13] MEDS ORDERED: chlordiazePOXIDE HCL 25 MG CAPSULE PO PRN (20:45)
--- NOTE | 2019-10-13 21:11 | PN ---
[facility] Progress Note Note: Will transfer client to [facility] for stabilization and medical clearance as patient is heavily intoxicated with worsening deep sleep state upon completing admission. difficulty to arouse, but arousable with deep stimuli for short period of time. drooling, snoring and at times with slurred speech when waken. patient is a/o x2 when awake. Vital Signs Temperature 98.1 F 10/13/19 19:18 Pulse Rate 96 H 10/13/19 19:18 Respiratory Rate 20 10/13/19 19:18 Blood Pressure 128/62 10/13/19 19:18 O2 Sat by Pulse Oximetry (%) cased d/w dr. Lauren. patient is admitted to [facility]. may return once stabilized.
[2019-10-13] MEDS ORDERED: THIAMINE HCL 100 MG TABLET (FP) PO SCH (22:00)
[2019-10-13] MEDS ORDERED: MELATONIN 5 MG TABLETS PO SCH (22:00)
[2019-10-14] MEDS ORDERED: chlordiazePOXIDE HCL 25 MG CAPSULE PO SCH (05:00)
--- NOTE | 2019-10-14 09:55 | PN ---
[facility] Progress Note Note: ER chart reviewed mr german may return to [facility] upon discharged from ER however mr german voice returning home instead of [facility] detox unit waiting for further evaluation
[2019-10-14] MEDS ORDERED: NICOTINE 21 MG/24 HOURS TOPICAL PATCH TD SCH (10:00)
[2019-10-14] MEDS ORDERED: PRENATAL VITAMINS W/ FOLIC ACID TABLET (FP) PO SCH (10:00)
--- NOTE | 2019-10-14 15:55 | DS ---
[facility] Detox Discharge Summary Admission Date: 10/13/19 Discharge Date: 10/14/19 - History Present History: Alcohol Dependence Additional Comments: 44 years old male - Physical Exam Results Vital Signs: Vital Signs Temperature 98.1 F 10/13/19 21:11 Pulse Rate 96 H 10/13/19 21:11 Respiratory Rate 20 10/13/19 21:11 Blood Pressure 128/62 10/13/19 21:11 O2 Sat by Pulse Oximetry (%) - Medication Discharge Medications: Ambulatory Orders Beclomethasone Dipropionate [Qvar Redihaler] 10.6 gm IH DAILY #1 inhaler 07/03/19 Citalopram Hydrobromide [Celexa -] 20 mg PO DAILY 08/31/19 Risperidone 1 mg PO BID 08/31/19 traZODone HCL [Trazodone HCl] 100 mg PO DAILY 09/11/19
--- NOTE | 2019-10-14 15:57 | PN ---
[facility] Progress Note Note: 44 years old male presents to [facility] for alcohol detox became unresponsive transferred to ER treated for alcohol intoxication based on electronic chart reviewed mr german regained consciousness and discharged to home I have not seen nor evaluated the patient
[2019-10-15] MEDS ORDERED: chlordiazePOXIDE HCL 25 MG CAPSULE PO SCH (05:00)
[2019-10-16] MEDS ORDERED: chlordiazePOXIDE HCL 10 MG CAPSULE PO PRN
[2019-10-16] MEDS ORDERED: chlordiazePOXIDE HCL 10 MG CAPSULE PO SCH (05:00)
[2019-10-17] MEDS ORDERED: chlordiazePOXIDE HCL 10 MG CAPSULE PO SCH (05:00)
[2019-10-18] MEDS ORDERED: chlordiazePOXIDE HCL 10 MG CAPSULE PO ONE (05:00)
== END 2019-10-14 16:00 | disposition short-term general hospital (02) | DRG 775 ==
LOC: YASAS 18:54 → Y3N 20:24
PROVIDERS: ADMIT Allergy & Immunology; ATTEND Allergy & Immunology
PROC: HZ2ZZZZ Detoxification Services for Substance Abuse Treatment (ICD-10-PCS; principal; 2019-10-13)
DX: F10.230 Alcohol dependence with withdrawal, uncomplicated (principal); F10.220 Alcohol dependence with intoxication, uncomplicated; F10.280 Alcohol dependence with alcohol-induced anxiety disorder; F10.282 Alcohol dependence with alcohol-induced sleep disorder; F17.210 Nicotine dependence, cigarettes, uncomplicated; J45.20 Mild intermittent asthma, uncomplicated; R63.8 Other symptoms and signs concerning food and fluid intake; R29.6 Repeated falls; Z91.14 Patient's other noncompliance with medication regimen
CPT/HCPCS: 82962; U0003

== ENCOUNTER 2019-10-13 21:32 | Emergency (ER) | payer OTHER ==
[2019-10-13 22:00] VITALS: BMI 25.1
--- NOTE | 2019-10-13 22:11 | PDOC ---
Attending Attestation - Resident Resident Name: AnyilexiilyubovBrenden - ED Attending Attestation I have performed the following: I have examined & evaluated the patient, The case was reviewed & discussed with the resident, I agree w/resident's findings & plan, Exceptions are as noted - HPI HPI: 44 yo M history EtOH abuse, asthma, sent by [facility], as he registered for detox. Was accepted for detox, however, was too intoxicated to be admitted. Pt currently intoxicated, unable to provide any history. Awakens to noxious stimuli. - Physicial Exam PE: GENERAL: Somnolent, awakens to noxious stimuli HEAD: No signs of trauma EYES: PERRLA, EOMI, sclera anicteric, conjunctiva clear ENT: Auricles normal inspection, hearing grossly normal, nares patent, oropharynx clear without exudates. Moist mucosa NECK: Normal ROM, supple, no lymphadenopathy, JVD, or masses LUNGS: Breath sounds equal, clear to auscultation bilaterally. No wheezes, and no crackles HEART: Regular rate and rhythm, normal S1 and S2, no murmurs, rubs or gallops ABDOMEN: Soft, nontender, normoactive bowel sounds. No guarding, no rebound. No masses EXTREMITIES: Normal range of motion, no edema. No clubbing or cyanosis. No cords, erythema, or tenderness NEUROLOGICAL: Limited by intoxication SKIN: Warm, dry, normal turgor, no rashes or lesions noted. - Medical Decision Making Initial BP low, but 100/61 on my evaluation. Pt intoxicated. Will monitor to clinical sobriety. Discharge - Discharge Information Problems reviewed: Yes Clinical Impression/Diagnosis: Alcohol dependence with uncomplicated intoxication Condition: Stable Disposition: HOME - Follow up/Referral - Patient Discharge Instructions - Post Discharge Activity
--- NOTE | 2019-10-13 22:17 | PDOC ---
History of Present Illness - General Chief Complaint: Alcohol intoxication Stated Complaint: INTOX Time Seen by Provider: 10/13/19 21:52 History Source: Unavil. due to pt. cond. Exam Limitations: Intoxication - History of Present Illness Initial Comments: 10/13/19 22:11 44M w/hx EtOH use disorder, asthma transferred from [facility] with EtOH intoxication. He is unresponsive and unable to contribute to history. Past History - Medical History Allergies/Adverse Reactions: Allergies Allergy/AdvReac Type Severity Reaction Status Date / Time tomato Allergy Intermediate Hives Verified 10/13/19 20:52 doxycycline Allergy Mild Verified 10/13/19 20:52 Fish Containing Products Allergy Mild Verified 10/13/19 20:52 onion Allergy Mild Verified 10/13/19 20:52 Penicillins Allergy Mild Verified 10/13/19 20:52 mayonnaise AdvReac Intermediate Verified 10/13/19 19:41 Home Medications: Ambulatory Orders Beclomethasone Dipropionate [Qvar Redihaler] 10.6 gm IH DAILY #1 inhaler 07/03/19 Citalopram Hydrobromide [Celexa -] 20 mg PO DAILY 08/31/19 Risperidone 1 mg PO BID 08/31/19 traZODone HCL [Trazodone HCl] 100 mg PO DAILY 09/11/19 Anemia: No Asthma: Yes Cancer: No Cardiac Disorders: No CVA: No COPD: No CHF: No Diabetes: No GI Disorders: No Disorders: No HTN: No Hypercholesterolemia: No Kidney Stones: No Liver Disease: No Seizures: No Thyroid Disease: No - Surgical History Abdominal Surgery: Yes (right inguinal hernia repair) Appendectomy: No Cardiac Surgery: No Cholecystectomy: No Lung Surgery: No Neurologic Surgery: No Orthopedic Surgery: Yes (right ankle surgery 2016) - Reproductive History Testicular Surgery: No - Immunization History Immunization Up to Date: (unknown) - Psycho-Social/Smoking History Smoking History: Unknown if ever smoked Have you smoked in the past 12 months: Yes Number of Cigarettes Smoked Daily: 20 Cigars Per Day: 0 'Breaking Loose' booklet given: 10/13/19 - Substance Abuse Hx (Audit-C & DAST Scrn) How often the patient has a drink containing alcohol: 4 0r more times/wk Score: In Men: 4 or > Positive; In Women: 3 or > Positive: 4 Screen Result (Pos requires Nsg. Audit-10AR): Positive Review of Systems - Review of Systems Able to Perform ROS?: No (Intox, unresponsive) *Physical Exam - Vital Signs Last Vital Signs Temp Pulse Resp BP Pulse Ox 97.3 F L 79 19 100/61 100 10/13/19 21:42 10/13/19 22:06 10/13/19 22:06 10/13/19 22:06 10/13/19 22:06 - Physical Exam 10/13/19 22:14 GENERAL: Intoxicated, snoring. Minimally responsive to painful stimulus. HEAD: No signs of trauma, normocephalic, atraumatic EYES: PERRLA, EOMI, sclera anicteric, conjunctiva clear ENT: Auricles normal inspection, hearing grossly normal, nares patent, oropharynx clear without exudates. Moist mucosa NECK: Normal ROM, supple, no lymphadenopathy, JVD, or masses LUNGS: No distress, clear to auscultation bilaterally HEART: Regular rate and rhythm, normal S1 and S2, no murmurs, rubs or gallops, peripheral pulses normal and equal bilaterally. ABDOMEN: Soft, nontender, normoactive bowel sounds. No guarding, no rebound. No masses EXTREMITIES : Normal inspection, Normal range of motion, no edema. No clubbing or cyanosis NEUROLOGICAL: Unable to assess secondary to intoxication SKIN: Warm, Dry, normal turgor, no rashes or lesions noted ED Treatment Course - RADIOLOGY Radiology Studies Ordered: Category Date Time Status CERVICAL SPINE CT W/O CONTR [CT] Stat CT Scan 10/13/19 22:[address] WITHOUT CONTRAST [CT] Stat CT Scan 10/13/19 22:03 Ordered Medical Decision Making - Medical Decision Making 10/13/19 22:15 44M w/hx asthma, EtOH use disorder p/w EtOH intoxication from [facility]. No tremors, tongue fasciculations, or tachycardia on exam, PERRLA. Plan: CT Head CT Cervical Spine BGM EKG Cardiac monitoring Dispo: Discharge pending sobriety Discharge - Discharge Information Problems reviewed: Yes Clinical Impression/Diagnosis: Alcohol dependence with uncomplicated intoxication Condition: Stable Disposition: HOME - Admission No - Follow up/Referral - Patient Discharge Instructions - Post Discharge Activity
--- NOTE | 2019-10-14 05:44 | PDOC ---
*Physical Exam - Vital Signs Last Vital Signs Temp Pulse Resp BP Pulse Ox 97.5 F L 77 15 103/65 100 10/14/19 03:11 10/14/19 03:11 10/14/19 03:11 10/14/19 03:11 10/14/19 03:11 Medical Decision Making - Medical Decision Making 10/14/19 05:40 Recevied on signout from Dr Snider 44M w/hx EtOH use disorder, asthma transferred from [facility] detox with EtOH intoxication BGM stable at 86 patient now awake and a&ox3, gait stable and not requiring assist would like to be DCd home Discharge - Discharge Information Problems reviewed: Yes Clinical Impression/Diagnosis: Alcohol dependence with uncomplicated intoxication Condition: Stable Disposition: HOME - Follow up/Referral - Patient Discharge Instructions Patient Printed Discharge Instructions: DI for Alcohol Abuse Additional Instructions: Additional Instructions: Please return to the emergency department with any new or worsening symptoms or concerns including fever, abdominal pain, withdrawal, hallucinations. Please follow up with your primary care physician and Detox Center for further evaluation of alcohol abuse - Post Discharge Activity
[2019-10-14 05:51] VITALS: BP 112/75; PULSE 71; TEMP 98.2
--- NOTE | 2019-10-14 09:13 | EKG ---
Test Reason : Blood Pressure : / mmHG Vent. Rate : 078 BPM Atrial Rate : 078 BPM P-R Int : 140 ms QRS Dur : 098 ms QT Int : 396 ms P-R-T Axes : 083 028 054 degrees QTc Int : 451 ms NORMAL SINUS RHYTHM INCOMPLETE RIGHT BUNDLE BRANCH BLOCK ABNORMAL ECG WHEN COMPARED WITH ECG OF 17-JUN-2019 09:41, INCOMPLETE RIGHT BUNDLE BRANCH BLOCK IS NOW PRESENT Confirmed by VALENCIA JIM MD ([id number]) on 10/14/2019 9:13:11 AM Referred By: Confirmed By:VALENCIA JIM MD
== END 2019-10-14 05:52 | disposition home or self-care (01) ==
LOC: JER 21:32
DX: F10.220 Alcohol dependence with intoxication, uncomplicated (principal)
CPT/HCPCS: 70450-TC; 72125-TC; 93005; 93010; 99284-25

== ENCOUNTER 2020-03-11 18:58 | Inpatient (IN) | payer OTHER ==
[2020-03-11 19:53] VITALS: BMI 23.3
[2020-03-11] MEDS ORDERED: METHOCARBAMOL 500 MG TABLET PO PRN (20:29)
[2020-03-11] MEDS ORDERED: hydrOXYzine PAMOATE 25 MG CAPSULE (FP) PO PRN (20:29)
[2020-03-11] MEDS ORDERED: MAGNESIUM HYDROX 2400MG/30ML ORAL SUSPENSION 30 ML CUP PO PRN (20:29)
[2020-03-11] MEDS ORDERED: IBUPROFEN 400 MG TABLET (FP) PO PRN (20:29)
[2020-03-11] MEDS ORDERED: MAGNESIUM CITRATE 300 ML BOTTLE PO PRN (20:29)
[2020-03-11] MEDS ORDERED: BISMUTH SUBSALICYLATE 524 MG/30 ML UD PO PRN (20:29)
[2020-03-11] MEDS ORDERED: MENTHOL/PHENOL 1 EACH UD MM PRN (20:29)
[2020-03-11] MEDS ORDERED: ONDANSETRON *ODT* 4 MG TABLET SL PRN (20:29)
[2020-03-11] MEDS ORDERED: MAG HYDROX/AL HYDROX/SIMETH 30 ML UNIT-DOSE CUP PO PRN (20:29)
[2020-03-11] MEDS ORDERED: MELATONIN 5 MG TABLETS PO PRN (20:29)
[2020-03-11] MEDS ORDERED: ACETAMINOPHEN 325 MG TABLET (FP) PO PRN ×2 (20:29)
[2020-03-11] MEDS ORDERED: diazePAM 5 MG TABLET PO PRN (20:32)
[2020-03-11] MEDS ORDERED: diazePAM 5 MG TABLET PO ONE (21:00)
[2020-03-11] MEDS: THIAMINE HCL 100 MG TABLET (FP) PO SCH (21:07)
[2020-03-11] MEDS: diazePAM 5 MG TABLET PO SCH (23:48)
[2020-03-12] MEDS: diazePAM 5 MG TABLET PO SCH ×4 (05:46→22:31)
[2020-03-12 09:40] LABS: HEMATOCRIT 39.8 % (35.4-49); HEMOGLOBIN 13.2 GM/dL (11.7-16.9); MCH 30.5 pg (25.7-33.7); MCHC 33.1 g/dl (32.0-35.9); MEAN PLT VOLUME 8.3 fl (7.5-11.1); PLATELET COUNT 202 K/MM3 (134-434); RBC 4.32 M/mm3 (4.00-5.60); RDW 14.2 % (11.9-15.9); WHITE BLOOD COUNT 7.3 K/mm3 (4.0-10.0)
[2020-03-12 09:45] LABS: POTASSIUM 3.4 mmol/L (3.5-5.1)
[2020-03-12 09:57] LABS: CALCIUM 8.6 mg/dL (8.5-10.1)
[2020-03-12 09:58] LABS: ALBUMIN 3.6 g/dl (3.4-5.0); BLOOD UREA NITROGEN 7.4 mg/dL (7-18)
[2020-03-12] MEDS ORDERED: PATIENT'S OWN MEDICATION (NON-FORMULARY) (Beclomethasone Dipropionate [Qvar Redihaler] 10. IH SCH (10:00)
[2020-03-12 10:01] LABS: CREATININE 0.7 mg/dL (0.55-1.3)
[2020-03-12 10:02] LABS: BILIRUBIN,TOTAL 0.8 mg/dL (0.2-1)
[2020-03-12 10:03] LABS: TOT PROT 7.2 g/dl (6.4-8.2)
[2020-03-12] MEDS: PRENATAL VITAMINS W/ FOLIC ACID TABLET (FP) PO SCH (10:08)
[2020-03-12] MEDS: POTASSIUM CHLORIDE TABS 20 MEQ TABLET.ER (FP) PO SCH (10:52)
[2020-03-12] MEDS: MOMETASONE FUROATE 110 MCG/IH INHALER IH SCH ×2 (11:57→22:31)
[2020-03-12] MEDS: THIAMINE HCL 100 MG TABLET (FP) PO SCH (22:31)
[2020-03-13] MEDS ORDERED: diazePAM 5 MG TABLET PO SCH (06:00)
[2020-03-13 09:44] VITALS: BP 136/80; PULSE 70; TEMP 97.1
[2020-03-13] MEDS: POTASSIUM CHLORIDE TABS 20 MEQ TABLET.ER (FP) PO SCH (10:06)
[2020-03-13] MEDS: PRENATAL VITAMINS W/ FOLIC ACID TABLET (FP) PO SCH (10:06)
[2020-03-13] MEDS: MOMETASONE FUROATE 110 MCG/IH INHALER IH SCH (10:06)
[2020-03-14] MEDS ORDERED: diazePAM 5 MG TABLET PO ONE (05:00)
[2020-03-14] MEDS ORDERED: diazePAM 5 MG TABLET PO SCH (06:00)
[2020-03-15] MEDS ORDERED: diazePAM 5 MG TABLET PO ONE (06:00)
== END 2020-03-13 12:12 | disposition left against medical advice (07) | DRG 775 ==
LOC: YASAS 18:58 → Y6N 20:19
PROVIDERS: ADMIT Allergy & Immunology; ATTEND Allergy & Immunology
PROC: HZ2ZZZZ Detoxification Services for Substance Abuse Treatment (ICD-10-PCS; principal; 2020-03-11)
DX: F10.230 Alcohol dependence with withdrawal, uncomplicated (principal); F17.210 Nicotine dependence, cigarettes, uncomplicated; F25.9 Schizoaffective disorder, unspecified; F10.24 Alcohol dependence with alcohol-induced mood disorder; F10.282 Alcohol dependence with alcohol-induced sleep disorder; F41.9 Anxiety disorder, unspecified; F32.9 Major depressive disorder, single episode, unspecified; J45.20 Mild intermittent asthma, uncomplicated; R74.01 Elevation of levels of liver transaminase levels; R63.8 Other symptoms and signs concerning food and fluid intake; Z88.0 Allergy status to penicillin; Z88.1 Allergy status to other antibiotic agents; Z91.018 Allergy to other foods; Z87.81 Personal history of (healed) traumatic fracture
CPT/HCPCS: 36415; 80053; 85027; 86780; C9803; U0003

== ENCOUNTER 2022-02-11 21:42 | Emergency (ER) | payer OTHER ==
[2022-02-11] MEDS ORDERED: LIDOCAINE PATCH REMOVAL MC SCH (22:00)
[2022-02-11 22:28] VITALS: BMI 24.4
[2022-02-11] MEDS ORDERED: ACETAMINOPHEN 500 MG TABLET (FP) PO ONE (22:54)
[2022-02-11] MEDS ORDERED: LIDOCAINE 5% TOPICAL PATCH TP ONE (22:54)
[2022-02-11] MEDS ORDERED: KETOROLAC TROMETHAMINE 15 MG/ML VIAL IM ONE (22:54)
[2022-02-11] MEDS ORDERED: ACETAMINOPHEN 1000 MG/100 ML BAG IVPB ONE (23:26)
[2022-02-12] MEDS ORDERED: ACETAMINOPHEN INJECTION 100 ML IVPB ONE (00:34)
[2022-02-12 00:40] LABS: BASO % 2.1 % (0-2.0); EOS % 1.9 % (0-4.5); HEMATOCRIT 42.2 % (35.4-49); HEMOGLOBIN 14.5 GM/dL (11.7-16.9); LYMPH % 29.2 % (8-40); MCHC 34.3 g/dl (32.0-35.9); MEAN CELL VOLUME 87.4 fl (80-96); MEAN PLT VOLUME 7.4 fl (7.5-11.1); MONO % 6.1 % (3.8-10.2); NEUT % 60.7 % (42.8-82.8); PLATELET COUNT 316 10^3/uL (134-434); RBC 4.82 M/mm3 (4.00-5.60); RDW 14.4 % (11.9-15.9); WHITE BLOOD COUNT 11.2 K/mm3 (4.0-10.0)
[2022-02-12 00:48] LABS: INR 0.99 (0.83-1.09); PROTHROMBIN TIME (PATIENT) 11.4 SEC (9.7-13.0)
[2022-02-12 01:04] LABS: ALBUMIN 4.2 g/dl (3.4-5.0); CALCIUM 8.8 mg/dL (8.5-10.1)
[2022-02-12 01:07] LABS: CREATININE 1.2 mg/dL (0.55-1.3)
[2022-02-12 01:09] LABS: BILIRUBIN,TOTAL 0.2 mg/dL (0.2-1); TOT PROT 7.8 g/dl (6.4-8.2)
[2022-02-12] MEDS ORDERED: LIDOCAINE 5% TOPICAL PATCH ONE (01:23)
[2022-02-12 02:34] VITALS: BP 100/65; PULSE 95; RESP 20; TEMP 98.6
== END 2022-02-12 07:22 | disposition home or self-care (01) ==
LOC: JER 21:42
PROC: 3E0233Z Introduction of Anti-inflammatory into Muscle, Percutaneous Approach (ICD-10-PCS; principal; 2022-02-11)
PROC: 3E033NZ Introduction of Analgesics, Hypnotics, Sedatives into Peripheral Vein, Percutaneous Approach (ICD-10-PCS; 2022-02-11)
DX: F10.929 Alcohol use, unspecified with intoxication, unspecified (principal); M54.50 Low back pain, unspecified
CPT/HCPCS: 0241U-QW; 36415; 70450-TC; 71045-TC-FY; 71260-TC; 72125-TC; 72131-TC; 74177-TC; 80053; 80307; 84484; 85025; 85610; 85730; 93005; 93010; 99285-25; Q9967

== ENCOUNTER 2022-03-27 10:19 | Inpatient (IN) | payer OTHER ==
[2022-03-27 12:38] VITALS: BMI 23.0
[2022-03-27] MEDS ORDERED: IBUPROFEN 600 MG TABLET (FP) PO PRN (15:01)
[2022-03-27] MEDS ORDERED: hydrOXYzine PAMOATE 25 MG CAPSULE (FP) PO PRN (15:01)
[2022-03-27] MEDS ORDERED: NICOTINE POLACRILEX 2 MG GUM BUC PRN (15:01)
[2022-03-27] MEDS ORDERED: ONDANSETRON *ODT* 4 MG TABLET SL PRN (15:01)
[2022-03-27] MEDS ORDERED: IBUPROFEN 400 MG TABLET (FP) PO PRN (15:01)
[2022-03-27] MEDS ORDERED: DICYCLOMINE HCL 10 MG CAPSULE PO PRN (15:01)
[2022-03-27] MEDS ORDERED: MAGNESIUM HYDROX 2400MG/30ML ORAL SUSPENSION 30 ML CUP PO PRN (15:01)
[2022-03-27] MEDS ORDERED: LOPERAMIDE HCL 2 MG CAPSULE PO PRN (15:01)
[2022-03-27] MEDS ORDERED: METHOCARBAMOL 500 MG TABLET PO PRN (15:01)
[2022-03-27] MEDS ORDERED: BISMUTH SUBSALICYLATE 524 MG/30 ML PO PRN (15:01)
[2022-03-27] MEDS ORDERED: MAG HYDROX/AL HYDROX/SIMETH 30 ML UNIT-DOSE CUP PO PRN (15:01)
[2022-03-27] MEDS ORDERED: POLYETHYLENE GLYCOL (HEALTHYLAX) 3350 17 GM PACKET PO PRN (15:01)
[2022-03-27] MEDS ORDERED: NALOXONE HCL (KLOXXADO) 8 MG SPRAY NS PRN (15:01)
[2022-03-27] MEDS ORDERED: ACETAMINOPHEN 325 MG TABLET (FP) PO PRN ×2 (15:01)
[2022-03-27] MEDS ORDERED: BENZOCAINE/MENTHOL (CHLORASEPTIC ) LOZENGE MM PRN (15:01)
[2022-03-27] MEDS: THIAMINE HCL 100 MG TABLET (FP) PO SCH (22:54)
[2022-03-27] MEDS: MELATONIN 5 MG TABLETS PO SCH (22:54)
[2022-03-28 10:30] LABS: HEMATOCRIT 42.3 % (35.4-49); HEMOGLOBIN 13.8 GM/dL (11.7-16.9); MCH 28.7 pg (25.7-33.7); MCHC 32.7 g/dl (32.0-35.9); MEAN CELL VOLUME 87.9 fl (80-96); MEAN PLT VOLUME 8.3 fl (7.5-11.1); PLATELET COUNT 294 10^3/uL (134-434); RBC 4.81 M/mm3 (4.00-5.60); WHITE BLOOD COUNT 7.8 K/mm3 (4.0-10.0)
[2022-03-28] MEDS ORDERED: PATIENT'S OWN MEDICATION (NON-FORMULARY) (Beclomethasone Dipropionate [Qvar Redihaler] 10. IH SCH (11:15)
[2022-03-28] MEDS: chlordiazePOXIDE HCL 25 MG CAPSULE PO SCH ×3 (11:20→22:25)
[2022-03-28] MEDS: PRENATAL VITAMINS W/ FOLIC ACID TABLET (FP) PO SCH (11:21)
[2022-03-28 12:07] LABS: ALBUMIN 3.2 g/dl (3.4-5.0); CALCIUM 8.6 mg/dL (8.5-10.1)
[2022-03-28 12:08] LABS: BLOOD UREA NITROGEN 9.5 mg/dL (7-18)
[2022-03-28 12:10] LABS: CREATININE 0.9 mg/dL (0.55-1.3)
[2022-03-28 12:12] LABS: BILIRUBIN,TOTAL 0.2 mg/dL (0.2-1); TOT PROT 6.6 g/dl (6.4-8.2)
[2022-03-28] MEDS: MELATONIN 5 MG TABLETS PO SCH (22:25)
[2022-03-28] MEDS: THIAMINE HCL 100 MG TABLET (FP) PO SCH (22:25)
[2022-03-29] MEDS: chlordiazePOXIDE HCL 10 MG CAPSULE PO SCH ×4 (05:47→22:02)
[2022-03-29] MEDS: PRENATAL VITAMINS W/ FOLIC ACID TABLET (FP) PO SCH (10:04)
[2022-03-29] MEDS: THIAMINE HCL 100 MG TABLET (FP) PO SCH (22:02)
[2022-03-29] MEDS: MELATONIN 5 MG TABLETS PO SCH (22:02)
[2022-03-30] MEDS ORDERED: chlordiazePOXIDE HCL 10 MG CAPSULE PO SCH (05:00)
[2022-03-30 09:29] VITALS: BP 120/62; PULSE 84; RESP 18; TEMP 97.8
[2022-03-30] MEDS: PRENATAL VITAMINS W/ FOLIC ACID TABLET (FP) PO SCH (10:05)
[2022-03-31] MEDS ORDERED: chlordiazePOXIDE HCL 10 MG CAPSULE PO ONE (05:00)
== END 2022-03-30 10:00 | disposition home or self-care (01) | DRG 774 ==
LOC: YASAS 10:19 → Y6N 17:20
PROVIDERS: ADMIT Allergy & Immunology; ATTEND Allergy & Immunology
PROC: HZ2ZZZZ Detoxification Services for Substance Abuse Treatment (ICD-10-PCS; principal; 2022-03-27)
DX: F10.230 Alcohol dependence with withdrawal, uncomplicated (principal); F14.20 Cocaine dependence, uncomplicated; F17.210 Nicotine dependence, cigarettes, uncomplicated; J45.20 Mild intermittent asthma, uncomplicated; Z88.8 Allergy status to other drugs, medicaments and biological substances; Z91.013 Allergy to seafood; Z91.018 Allergy to other foods; Z91.51 Personal history of suicidal behavior; Z59.00 Homelessness unspecified
CPT/HCPCS: 36415; 80053; 85027; 86780; C9803-CS; U0003; U0005